=== PATIENT | female | born 1980 | race Caucasian/White ===

== ENCOUNTER 2017-11-27 09:30 | Inpatient (IN) | payer OTHER ==
[2017-11-27] MEDS ORDERED: ELECTROLYTE-148 SOLN 500 ML IV ONE (09:45)
[2017-11-27] MEDS ORDERED: CITRIC ACID/SODIUM CITRATE 30 ML UNIT-DOSE CUP PO ONE (10:52)
[2017-11-27] MEDS ORDERED: ELECTROLYTE-148 SOLN 1,000 ML IV SCH (11:00)
[2017-11-27 11:02] VITALS: BMI 34.3
--- NOTE | 2017-11-27 11:06 | HP ---
Past Medical History - Primary Care Physician PCP:: Adilia Mcdaniel - Admission Chief Complaint: 37 yrs ( AMA), , 39 weeks by sono, 38.2/7 by dates , previous c/section x3 , c/o onset of labor pain since 8.00AM , requests for voluntory sterlization History of Present Illness: pnc at [address] [place] [address] wt gain 21 lbs panel : 06/06/17 A pos, Rubella immune, Hbsg neg, Rpr nr, Hiv neg, Pap NILM, gc/ct neg 09/16/17 Quantiferon neg, Rpr nr,1 hr Gtt 112 11/09/17 h/h11.3, plt 133, , GBS neg, Gc/Ct neg , Hiv nr Pt was seen by MFM, Genetic counselling obtained , Serial sonogram done for growth reviewed .. 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 Weeks Gestation by Dates: 38.1 ...EDC by Dates: 12/10/17 ...EDC by Sono: 12/05/17 (07/08/17 sono 18.4 wks, urban 12/05/17 . 39 weeks by sono ) Additional OB History: G1 01/26/1999 primary c/section 40 weeks 10 lbs In [place]. G2 04/27/2000 repeat c/section 40 weeks , 10 lb in [place]. G3 2015 repeat c/section 40 weeks 10 lbs at [facility] Heme/Onc: Yes: Anemia (rx po iron & pnv) Infectious Disease: No: HIV, STD's, Tuberculosis Psych: Yes: Other (no h/o mental illness) - Past Surgical History Past Surgical History: Yes: (01/1999, 04/2000, 09/2015) Hx Myomectomy: No Hx Transabdominal Cerclage: No - Smoking History Have you smoked in the past 12 months: No - Alcohol/Substance Use Hx Alcohol Use: No History of Substance Use: reports: None Home Medications - Allergies Allergies/Adverse Reactions: Allergies Allergy/AdvReac Type Severity Reaction Status Date / Time No Known Allergies Allergy Verified 11/27/17 11:04 - Home Medications Home Medications: Ambulatory Orders Tablet 1 tab PO DAILY 11/27/17 Physical Exam - Maternity Vital Signs: Vital Signs Temperature 98.2 F 11/27/17 10:11 Pulse Rate 72 11/27/17 10:11 Respiratory Rate 18 11/27/17 10:11 Blood Pressure 118/59 11/27/17 10:11 O2 Sat by Pulse Oximetry (%) Constitutional: Yes: Well Nourished, Mild Distress Eyes: Yes: WNL HENT: Yes: WNL, Normocephalic Neck: Yes: WNL Cardiovascular: Yes: WNL, Regular Rate and Rhythm Lungs: Clear to auscultation Breast(s): Yes: WNL - Abdominal Exam/OB Fundal Height: 38 Number of Fetuses: Single Presentation: Vertex Contractions: Yes Regularity: Regular (4-5 min refular before hydration. after hydration 6-7 min apart) Intensity: Moderate Monitor Mode: External Heart Rate (range): 140 Heart Rate Location: [facility] Category: I Accelerations: Uniform Decelerations: None - Vaginal Exam/OB Vaginal Bleediing: No Dilatation (cm): 1 Effacement (%): 70 Amniotic Membrane Status: Intact Amniotic Fluid: Yes: Clear Meconium: Moderate Presentation: Vertex/Position Station: -3 - Physical Exam Musculoskeletal: Yes: WNL Extremities: Yes: WNL. No: Calf Tenderness Edema: Yes Edema: LLE: 1+, RLE: 1+ Integumentary: Yes: Incision (subumblical midline scar & pfannensteil scar) Deep Tendon Reflex Grade: Hyperactive,very brisk +4 Psychiatric: Yes: WNL, Alert, Oriented - Labs Lab Results: Laboratory Tests 11/27/17 11/27/17 11/27/17 11:10 11:10 11:10 WBC 8.5 Hgb 11.9 Hct 35.3 Plt Count 148 Neutrophils % 74.6 Lymphocytes % 19.2 Monocytes % 5.4 Eosinophils % 0.5 PT with INR 10.60 INR 0.94 PTT (Actin FS) 28.0 Sodium 142 Potassium 3.8 Chloride 111 H Carbon Dioxide 21 BUN 8 Creatinine 0.3 L Random Glucose 106 Calcium 8.2 L RPR Titer Blood Type Antibody Screen 11/27/17 11/27/17 11:10 11:10 WBC Hgb Hct Plt Count Neutrophils % Lymphocytes % Monocytes % Eosinophils % PT with INR INR PTT (Actin FS) Sodium Potassium Chloride Carbon Dioxide BUN Creatinine Random Glucose Calcium RPR Titer Nonreactive Blood Type A POSITIVE Antibody Screen Negative Hemorrhage Risk Assessment - Risk Factors Medium Risk Factors: Yes: Prior , uterine surgery,or multiple laparotomies Risk Score: 1 Risk Level: Medium Risk Problem List - Problems (1) with 39 completed weeks gestation Code(s): Z3A.39 - 39 WEEKS GESTATION OF (2) Previous section Code(s): Z98.891 - HISTORY OF UTERINE SCAR FROM PREVIOUS SURGERY (3) Multiparity Code(s): Z64.1 - PROBLEMS RELATED TO MULTIPARITY (4) Morbidly obese Code(s): E66.01 - MORBID (SEVERE) OBESITY DUE TO EXCESS CALORIES (5) AMA (advanced maternal age) multigravida 35+ Code(s): O09.529 - SUPERVISION OF ELDERLY MULTIGRAVIDA, UNSPECIFIED TRIMESTER Qualifiers: Trimester: third trimester Qualified Code(s): O09.523 - Supervision of elderly multigravida, third trimester (6) First stage of labor established Code(s): [id number] - Assessment/Plan 37 yrs , previous c/sx3, in early labor , requests for repeat c/s plan rRpeat LFT/C/S BTL
[2017-11-27 11:29] LABS: BASO % 0.3 % (0-2.0); EOS % 0.5 % (0-4.5); HEMATOCRIT 35.3 % (32.4-45.2); HEMOGLOBIN 11.9 GM/dL (10.7-15.3); LYMPH % 19.2 % (8-40); MCH 30.2 pg (25.7-33.7); MCHC 33.8 g/dl (32.0-36.0); MEAN CELL VOLUME 89.3 fl (80-96); MEAN PLT VOLUME 10.9 fl (7.5-11.1); MONO % 5.4 % (3.8-10.2); NEUT % 74.6 % (42.8-82.8); PLATELET COUNT 148 K/MM3 (134-434); RBC 3.95 M/mm3 (3.60-5.2); RDW 15.8 % (11.6-15.6); WHITE BLOOD COUNT 8.5 K/mm3 (4.0-10.0)
[2017-11-27] MEDS ORDERED: ONDANSETRON 4 MG/2 ML VIAL IVPUSH PRN (11:49)
[2017-11-27 11:57] LABS: ANION GAP 10 MMOL/L (8-16); BLOOD UREA NITROGEN 8 mg/dL (7-18); CALCIUM 8.2 mg/dL (8.5-10.1); CHLORIDE 111 mmol/L (98-107); CO2 21 mmol/L (21-32); CREATININE 0.3 mg/dL (0.55-1.02); GLUCOSE,RANDOM 106 mg/dL (74-106); POTASSIUM 3.8 mmol/L (3.5-5.1); SODIUM 142 mmol/L (136-145)
[2017-11-27 12:01] LABS: INR 0.94 (0.83-1.09); PROTHROMBIN TIME (PATIENT) 10.6 SEC (9.7-13.0)
[2017-11-27] MEDS ORDERED: morphine SULFATE/Preservative Free 0.5 MG/ML (1cc Syringe) ONE (15:33)
[2017-11-27] MEDS ORDERED: KETOROLAC TROMETHAMINE 30 MG/1 ML VIAL ONE (15:37)
[2017-11-27] MEDS ORDERED: ceFAZolin SODIUM 1 GM VIAL ONE (15:49)
[2017-11-27] MEDS ORDERED: SODIUM CHLORIDE 0.9% P/F 10 ML VIAL IJ ONE (15:49)
[2017-11-27] MEDS ORDERED: ePHEDrine SULFATE 50 MG/1 ML AMPULE ONE (15:50)
[2017-11-27] MEDS ORDERED: OXYTOCIN 10 UNITS/ML VIAL ONE (15:57)
[2017-11-27] MEDS ORDERED: SENNOSIDES/DOCUSATE COMBO (SENNA PLUS) TABLET (UD) PO PRN (16:57)
[2017-11-27] MEDS ORDERED: METHYLERGONOVINE MALEATE 0.2 MG/1 ML AMP IM PRN (16:57)
[2017-11-27] MEDS ORDERED: IBUPROFEN 800 MG/8 ML IJ IVPB PRN (16:57)
[2017-11-27] MEDS ORDERED: OXYTOCIN 20 UNITS in 0.9% NS 20 UNIT/1,000 ML INFUS.BAG IV SCH (17:00)
--- NOTE | 2017-11-27 17:13 | PN ---
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 2 gm iv Ancef prior to incision was given
--- NOTE | 2017-11-27 17:19 | OP ---
Operative Note - Note: Operative Date: 11/27/17 Pre-Operative Diagnosis: 39 weeks, previous c/sx3, early labor, multiparity, requests voluntory sterlization , obesity Operation: repeat lftc/s, btl , lysis of adhesions Findings: 4.02 PM , Vx Lot position, 9/9, Baby Boy,Wt 7'7' Lt Ovary not visualized . Rt ovary normal Both tubes ligated-cut by modified Brien technique Dr peters In Service Educator present in the room Surgeon: Adilia Mcdaniel Associate Professor Of Forestry: Oni William Anesthesiologist/MANAGER PROGRAMS: Jaylen Alvarez Anesthesia: Spinal Specimens Removed: placenta. cord blood Estimated Blood Loss (mls): 800 Drains, Volume Out (mls): 100 (diez output,light blood stained urine ) Fluid Volume Replaced (mls): 1,800 (iv ancef 2gm prior to incision ) Operative Report Dictated: Yes
[2017-11-27] MEDS ORDERED: PCA PUMP KEY 1 EACH EACH ONE (23:03)
[2017-11-28] MEDS ORDERED: DEXTROSE 5%-WATER - 50 ML IVPB ONE ×2 (00:17→07:50)
[2017-11-28] MEDS ORDERED: ceFAZolin SODIUM 1 GM VIAL ONE ×2 (00:17→07:50)
[2017-11-28] MEDS: CEFAZOLIN 1 GM in DEXTROSE 5%-WATER - 50 ML IVPB SCH ×2 (00:27→08:03)
[2017-11-28] MEDS ORDERED: oxyCODONE HCL 5 MG TABLET PO PRN (08:00)
[2017-11-28 08:23] LABS: BASO % 0.4 % (0-2.0); EOS % 0.3 % (0-4.5); HEMATOCRIT 31.5 % (32.4-45.2); HEMOGLOBIN 10.4 GM/dL (10.7-15.3); LYMPH % 18.5 % (8-40); MCH 29.7 pg (25.7-33.7); MCHC 33.1 g/dl (32.0-36.0); MEAN CELL VOLUME 89.9 fl (80-96); MEAN PLT VOLUME 10.2 fl (7.5-11.1); MONO % 4.5 % (3.8-10.2); NEUT % 76.3 % (42.8-82.8); PLATELET COUNT 125 K/MM3 (134-434); RBC 3.51 M/mm3 (3.60-5.2); RDW 16.5 % (11.6-15.6)
[2017-11-28] MEDS: PRENATAL VITAMINS W/ FOLIC ACID TABLET (FP) PO SCH (09:34)
--- NOTE | 2017-11-28 09:36 | PN ---
Post Progress Note - Subjective Subjective: no c/o pain not oob yet Post Day: 1 Type of Delivery: Repeat C/S (BTL) Vital Signs: Vital Signs Temperature 97.9 F 11/28/17 05:42 Pulse Rate 89 11/28/17 05:42 Respiratory Rate 20 11/28/17 08:00 Blood Pressure 106/56 11/28/17 05:42 O2 Sat by Pulse Oximetry (%) 100 11/27/17 18:00 Breast Exam: Yes: Soft, Other (BF ). No: Engorged Uterus: Yes: Fundus Firm, Fundus below umbilicus, Non-tender Incision: Yes: Dressing dry and intact. No: Redness, Oozing Abdomen/GI: Yes: Abdomen soft (BS active ), Abdominal Distention (obese abdomen ), Tolerating PO (clear liqiuds ). No: Tender, Passing flatus Lochia: Yes: Rubra Lochia, amount: Moderate Extremities: Yes: Calves non-tender, Edema Perineum: Yes: Intact Activity: Other (pt in bed with scd in situ ) - Labs Labs: CBC WBC 8.0 K/mm3 (4.0-10.0) 11/28/17 07:45 RBC 3.51 M/mm3 (3.60-5.2) L 11/28/17 07:45 Hgb 10.4 GM/dL (10.7-15.3) L 11/28/17 07:45 Hct 31.5 % (32.4-45.2) L 11/28/17 07:45 MCV 89.9 fl (80-96) 11/28/17 07:45 MCH 29.7 pg (25.7-33.7) 11/28/17 07:45 MCHC 33.1 g/dl (32.0-36.0) 11/28/17 07:45 RDW 16.5 % (11.6-15.6) H 11/28/17 07:45 Plt Count 125 K/MM3 (134-434) L 11/28/17 07:45 MPV 10.2 fl (7.5-11.1) 11/28/17 07:45 Absolute Neuts (auto) 6.1 K/mm3 (1.5-8.0) 11/28/17 07:45 Neutrophils % 76.3 % (42.8-82.8) 11/28/17 07:45 Lymphocytes % 18.5 % (8-40) 11/28/17 07:45 Monocytes % 4.5 % (3.8-10.2) 11/28/17 07:45 Eosinophils % 0.3 % (0-4.5) 11/28/17 07:45 Basophils % 0.4 % (0-2.0) 11/28/17 07:45 Nucleated RBC % 0 % (0-0) 11/28/17 07:45 Other Findings, Remarks: i/o 1550/650 urine rosenda color in the catheter tube & diez bag RS cta Problem List - Problems (1) with 39 completed weeks gestation Code(s): Z3A.39 - 39 WEEKS GESTATION OF (2) Previous section Code(s): Z98.891 - HISTORY OF UTERINE SCAR FROM PREVIOUS SURGERY (3) Multiparity Code(s): Z64.1 - PROBLEMS RELATED TO MULTIPARITY (4) Morbidly obese Code(s): E66.01 - MORBID (SEVERE) OBESITY DUE TO EXCESS CALORIES (5) AMA (advanced maternal age) multigravida 35+ Code(s): O09.529 - SUPERVISION OF ELDERLY MULTIGRAVIDA, UNSPECIFIED TRIMESTER Qualifiers: Trimester: third trimester Qualified Code(s): O09.523 - Supervision of elderly multigravida, third trimester (6) First stage of labor established Code(s): FDI3682 - (7) delivery delivered Code(s): O82 - ENCOUNTER FOR DELIVERY WITHOUT INDICATION (8) Encounter for visit Code(s): Z39.2 - ENCOUNTER FOR ROUTINE FOLLOW-UP Assessment/Plan stable . Plan :Remove catheter encourage ambulation, deep breathing, po fluids
[2017-11-28] MEDS: ENOXAPARIN NA (PORCINE) 40 MG/0.4 ML DISP.SYRIN SQ SCH (09:37)
[2017-11-28] MEDS ORDERED: DIPHTH,PERTUSS(ACELL),TET 0.5 ML DISP.SYRIN IM ONE (10:00)
[2017-11-28] MEDS: IBUPROFEN 600 MG TABLET (FP) PO PRN (15:04)
[2017-11-28] MEDS: oxyCODONE HCL 5 MG TABLET PO PRN (15:05)
[2017-11-28] MEDS: SIMETHICONE 80 MG TAB.CHEW (FP) PO PRN (15:07)
[2017-11-28] MEDS ORDERED: BISACODYL 10 MG SUPP.RECT RC PRN (16:58)
[2017-11-28] MEDS: ACETAMINOPHEN 325 MG TABLET (FP) PO PRN (17:05)
[2017-11-28] MEDS: FERROUS SO4 325 MG TABLET (FP) PO SCH (17:05)
--- NOTE | 2017-11-28 18:26 | PN ---
Progress Note (short form) - Note Progress Note: 6.00 pm nurse called me to come & see the patient immediately. pt c/o pain after 3.00 PM In LLQ. abdomen appeared distended to her she gave her rectal suppository ,she passed flatus she still c/o pain, no relief , she could not void . she states she passed urine once after diez was discontinued, she did not save urine. but it was small amount as per patient 5.40 PM Diez catheter was reinserted it s heamaturia ( blood with urine , red color) Diez out put charted in AM is 2950/1450 ml rosenda color nurse documented between 6.00AM to 10.30 AM 800 ml rosenda color urine pt was eating .Oob o/e pt c/o of pain in LLQ scale 8/10 abdomen is obese ,soft , LLQ tenderness bs active dressing changed, no, discharge from the incision wound becca intact . wound clean , dressing dry v/s T98.4, pulse 77/ml, BP 123/77. urine output measured now is 450 ml Imp : Post repeat (4Th ) c/section + BTL day #1 suspect bladder injury . Keep Diez catheter in situ Start IV Fluids N saline . keep strict i/o chart I contacted Urologist internal corrosion specialist Dr Mccann, he recommended Ct scan abdomen & pelvis with or without iv contrast tonight Cystogram tomorrow in AM PRN Problem List - Problems (1) with 39 completed weeks gestation Code(s): Z3A.39 - 39 WEEKS GESTATION OF (2) Previous section Code(s): Z98.891 - HISTORY OF UTERINE SCAR FROM PREVIOUS SURGERY (3) Multiparity Code(s): Z64.1 - PROBLEMS RELATED TO MULTIPARITY (4) Morbidly obese Code(s): E66.01 - MORBID (SEVERE) OBESITY DUE TO EXCESS CALORIES (5) AMA (advanced maternal age) multigravida 35+ Code(s): O09.529 - SUPERVISION OF ELDERLY MULTIGRAVIDA, UNSPECIFIED TRIMESTER Qualifiers: Trimester: third trimester Qualified Code(s): O09.523 - Supervision of elderly multigravida, third trimester (6) First stage of labor established Code(s): PAA2835 - (7) delivery delivered Code(s): O82 - ENCOUNTER FOR DELIVERY WITHOUT INDICATION (8) Encounter for visit Code(s): Z39.2 - ENCOUNTER FOR ROUTINE FOLLOW-UP (9) Hematuria Code(s): R31.9 - HEMATURIA, UNSPECIFIED Qualifiers: Hematuria type: gross Qualified Code(s): R31.0 - Gross hematuria
[2017-11-28] MEDS ORDERED: SODIUM CHLORIDE 1,000 ML IV SCH (18:30)
--- NOTE | 2017-11-28 18:39 | PN ---
Progress Note, Physician Chief Complaint: Pt. ambulating and voiding, pain controlled, no anesthesia complaints. - Current Medication List Current Medications: Active Medications Acetaminophen (Tylenol -) 650 mg PO Q4H PRN PRN Reason: PAIN LEVEL 1-5 Last Admin: 11/28/17 17:05 Dose: 650 mg Bisacodyl (Dulcolax Suppository -) 10 mg RC PRN PRN PRN Reason: CONSTIPATION Last Admin: 11/28/17 17:05 Dose: 10 mg Diphenhydramine HCl (Benadryl Injection -) 25 mg IVPUSH Q4H PRN PRN Reason: Pruritis Last Admin: 11/27/17 17:58 Dose: 25 mg Enoxaparin Sodium (Lovenox -) 40 mg SQ DAILY [facility] Last Admin: 11/28/17 09:37 Dose: 40 mg Ferrous Sulfate (Feosol -) 325 mg PO BIDWM [facility] Last Admin: 11/28/17 17:05 Dose: 325 mg Parenteral Electrolytes (Plasma-Lyte 148 -) 1,000 mls @ 125 mls/hr IV ASDIR [facility] Last Admin: 11/27/17 11:00 Dose: 125 mls/hr Oxytocin/Sodium Chloride (Normal Saline+20 Units Oxytocin -) 20 unit in 1,000 mls @ 125 mls/hr IV ASDIR [facility] Last Admin: 11/27/17 17:57 Dose: 125 mls/hr Sodium Chloride (Normal Saline -) 1,000 mls @ 150 mls/hr IV ASDIR [facility] Last Admin: 11/28/17 18:32 Dose: 150 mls/hr Ibuprofen (Motrin -) 600 mg PO Q4H PRN PRN Reason: PAIN LEVEL 1 - 3 Last Admin: 11/28/17 15:04 Dose: 600 mg Ibuprofen (Caldolor Injection -) 800 mg IVPB Q8H PRN PRN Reason: PAIN LEVEL 1-5 Last Admin: 11/28/17 09:47 Dose: 800 mg Methylergonovine Maleate (Methergine Injection -) 0.2 mg IM Q4H PRN PRN Reason: Excessive Bleeding (L&D) Ondansetron HCl (Zofran Injection) 4 mg IVPUSH Q4H PRN PRN Reason: NAUSEA Oxycodone HCl (Roxicodone -) 5 mg PO Q4H PRN PRN Reason: PAIN LEVEL 4 - 6 Last Admin: 11/28/17 15:05 Dose: 5 mg Oxycodone HCl (Roxicodone -) 10 mg PO Q4H PRN PRN Reason: PAIN LEVEL 7 - 10 Multivit/Folic Acid/Iron ( Vitamins (Sjr) -) 1 tab PO DAILY KATHLEEN Last Admin: 11/28/17 09:34 Dose: Not Given Senna/Docusate Sodium (Pericolace -) 2 tablet PO HS PRN PRN Reason: CONSTIPATION Simethicone (Mylicon -) 80 mg PO Q4H PRN PRN Reason: GAS Last Admin: 11/28/17 15:07 Dose: 80 mg - Objective Vital Signs: Vital Signs Temperature 98.4 F 11/28/17 14:00 Pulse Rate 92 H 11/28/17 14:00 Respiratory Rate 20 11/28/17 16:00 Blood Pressure 118/74 11/28/17 14:00 O2 Sat by Pulse Oximetry (%) 100 11/27/17 18:00 Constitutional: Yes: Well Nourished, No Distress, Calm Musculoskeletal: Yes: WNL Neurological: Yes: WNL, Alert, Oriented ...Motor Strength: WNL Labs: CBC, BMP 11/28/17 07:45 11/27/17 11:10 INR, PTT INR 0.94 (0.83-1.09) 11/27/17 11:10 Assessment/Plan POD#1 s/p under spinal with duramorph. Doing well. D/C from anesthesia care.
[2017-11-28] MEDS: SODIUM CHLORIDE 1,000 ML IV SCH (22:30)
--- NOTE | 2017-11-28 22:44 | PN ---
Progress Note (short form) - Note Progress Note: abd pelvis ctscan with or without contrast report from imaging motel front desk clerk no evidence of definite ureteric injury no evidence of contrast extravasation from urinary bladder , however catheter was not clamped urinary bladder is contracted recommend Ct cytogram to r/o subtle badder injury by infusing dilute contrast into bladder & clamping the catheter. Dr Mccann notified . He recommends CT Cystogram in AM pt has no c/o pain now , earlier it was 4-5/10 she had dinner, she is pumping the breast in chair.. urine in the tube is clear , in the bag appears orange in color. Intake from 7.00PM to 10.30PM ( 450 iv N Saline + 100 Ml contrast media + 480 po , Total = 1030 ML Urine Output 7.00Pm 400 ml + 9.00 PM 1100Ml + 10>30 PM 400 Ml Total =1900 mL . 10.PM Temp 98.1, BP 123/76, Puse 78/min Plan repeat cbc , cmp in AM Ctcysogram in AM ct iv hydration & diez catheter Problem List - Problems (1) with 39 completed weeks gestation Code(s): Z3A.39 - 39 WEEKS GESTATION OF (2) Previous section Code(s): Z98.891 - HISTORY OF UTERINE SCAR FROM PREVIOUS SURGERY (3) Multiparity Code(s): Z64.1 - PROBLEMS RELATED TO MULTIPARITY (4) Morbidly obese Code(s): E66.01 - MORBID (SEVERE) OBESITY DUE TO EXCESS CALORIES (5) AMA (advanced maternal age) multigravida 35+ Code(s): O09.529 - SUPERVISION OF ELDERLY MULTIGRAVIDA, UNSPECIFIED TRIMESTER Qualifiers: Trimester: third trimester Qualified Code(s): O09.523 - Supervision of elderly multigravida, third trimester (6) First stage of labor established Code(s): AKS6884 - (7) delivery delivered Code(s): O82 - ENCOUNTER FOR DELIVERY WITHOUT INDICATION (8) Encounter for visit Code(s): Z39.2 - ENCOUNTER FOR ROUTINE FOLLOW-UP (9) Hematuria Code(s): R31.9 - HEMATURIA, UNSPECIFIED Qualifiers: Hematuria type: gross Qualified Code(s): R31.0 - Gross hematuria
[2017-11-29] MEDS: IBUPROFEN 600 MG TABLET (FP) PO PRN ×3 (01:11→21:09)
[2017-11-29] MEDS: SIMETHICONE 80 MG TAB.CHEW (FP) PO PRN ×2 (01:11→21:09)
[2017-11-29] MEDS: oxyCODONE HCL 5 MG TABLET PO PRN ×2 (01:11→09:51)
[2017-11-29] MEDS: SODIUM CHLORIDE 1,000 ML IV SCH ×2 (01:50→09:57)
[2017-11-29] MEDS: FERROUS SO4 325 MG TABLET (FP) PO SCH ×2 (07:56→17:16)
[2017-11-29 08:33] LABS: BASO % 0.4 % (0-2.0); EOS % 0.6 % (0-4.5); HEMATOCRIT 32.4 % (32.4-45.2); HEMOGLOBIN 10.5 GM/dL (10.7-15.3); MCH 29.1 pg (25.7-33.7); MCHC 32.4 g/dl (32.0-36.0); MEAN CELL VOLUME 89.8 fl (80-96); MEAN PLT VOLUME 10.1 fl (7.5-11.1); MONO % 3.9 % (3.8-10.2); NEUT % 76.1 % (42.8-82.8); PLATELET COUNT 148 K/MM3 (134-434); RBC 3.61 M/mm3 (3.60-5.2); RDW 16.5 % (11.6-15.6); WHITE BLOOD COUNT 7.7 K/mm3 (4.0-10.0)
[2017-11-29 08:36] LABS: ANION GAP 5 MMOL/L (8-16); BILIRUBIN,TOTAL 0.3 mg/dL (0.2-1.0); BLOOD UREA NITROGEN 5 mg/dL (7-18); CALCIUM 7.4 mg/dL (8.5-10.1); CHLORIDE 111 mmol/L (98-107); CO2 25 mmol/L (21-32); CREATININE 0.4 mg/dL (0.55-1.02); GLUCOSE,RANDOM 84 mg/dL (74-106); POTASSIUM 4.3 mmol/L (3.5-5.1); SGOT/AST 28 U/L (15-37); SGPT/ALT 21 U/L (12-78); SODIUM 141 mmol/L (136-145); TOT PROT 5.4 g/dl (6.4-8.2)
[2017-11-29 08:37] LABS: ALK PHOS 101 U/L (45-117)
--- NOTE | 2017-11-29 09:29 | PN ---
Post Progress Note - Subjective Subjective: no c/o pain today. catheter urine is rosenda color pt oob tolerating food well Post Day: 2 Type of Delivery: Repeat C/S (BTL) Vital Signs: Vital Signs Temperature 98.1 F 11/28/17 21:41 Pulse Rate 78 11/28/17 21:41 Respiratory Rate 20 11/28/17 21:41 Blood Pressure 123/76 11/28/17 21:41 O2 Sat by Pulse Oximetry (%) 100 11/27/17 18:00 Breast Exam: Yes: Soft, Engorged, Other (pumping & dumping milk. ) Uterus: Yes: Fundus Firm, Fundus below umbilicus, Non-tender Incision: Yes: [place] intact. No: Redness, Oozing Abdomen/GI: Yes: Abdomen soft (bs active ), Abdominal Distention (obese abdomen ), Passing flatus (bm done ), Tolerating PO (diet ). No: Tender (no llq tenderness, no cva tenderness) Lochia: Yes: Rubra Lochia, amount: Small Extremities: Yes: Calves non-tender Perineum: Yes: Intact Activity: Ambulating - Labs Labs: CBC WBC 7.7 K/mm3 (4.0-10.0) 11/29/17 08:07 RBC 3.61 M/mm3 (3.60-5.2) 11/29/17 08:07 Hgb 10.5 GM/dL (10.7-15.3) L 11/29/17 08:07 Hct 32.4 % (32.4-45.2) 11/29/17 08:07 MCV 89.8 fl (80-96) 11/29/17 08:07 MCH 29.1 pg (25.7-33.7) 11/29/17 08:07 MCHC 32.4 g/dl (32.0-36.0) 11/29/17 08:07 RDW 16.5 % (11.6-15.6) H 11/29/17 08:07 Plt Count 148 K/MM3 (134-434) 11/29/17 08:07 MPV 10.1 fl (7.5-11.1) 11/29/17 08:07 Absolute Neuts (auto) 5.8 K/mm3 (1.5-8.0) 11/29/17 08:07 Neutrophils % 76.1 % (42.8-82.8) 11/29/17 08:07 Lymphocytes % 19.0 % (8-40) 11/29/17 08:07 Monocytes % 3.9 % (3.8-10.2) 11/29/17 08:07 Eosinophils % 0.6 % (0-4.5) D 11/29/17 08:07 Basophils % 0.4 % (0-2.0) 11/29/17 08:07 Nucleated RBC % 0 % (0-0) 11/29/17 08:07 Laboratory Tests 11/29/17 08:07 Sodium 141 Potassium 4.3 Chloride 111 H Carbon Dioxide 25 BUN 5 L Creatinine 0.4 L AST 28 ALT 21 Other Findings, Remarks: i/o 1720 ml/1800 ml . urine rosenda color Problem List - Problems (1) with 39 completed weeks gestation Code(s): Z3A.39 - 39 WEEKS GESTATION OF (2) Previous section Code(s): Z98.891 - HISTORY OF UTERINE SCAR FROM PREVIOUS SURGERY (3) Multiparity Code(s): Z64.1 - PROBLEMS RELATED TO MULTIPARITY (4) Morbidly obese Code(s): E66.01 - MORBID (SEVERE) OBESITY DUE TO EXCESS CALORIES (5) AMA (advanced maternal age) multigravida 35+ Code(s): O09.529 - SUPERVISION OF ELDERLY MULTIGRAVIDA, UNSPECIFIED TRIMESTER Qualifiers: Trimester: third trimester Qualified Code(s): O09.523 - Supervision of elderly multigravida, third trimester (6) First stage of labor established Code(s): [id number] - (7) delivery delivered Code(s): O82 - ENCOUNTER FOR DELIVERY WITHOUT INDICATION (8) Encounter for visit Code(s): Z39.2 - ENCOUNTER FOR ROUTINE FOLLOW-UP (9) Hematuria Code(s): R31.9 - HEMATURIA, UNSPECIFIED Qualifiers: Hematuria type: gross Qualified Code(s): R31.0 - Gross hematuria Assessment/Plan stable post RepeatC/Section Btl day #2 , s/p hematuria workup in progress to r/o bladder injury ureter injury is ruled out by Iv contrast Ct scan Abd & Pelvis to r/o bladder injury cytogram pending Urologist Dr Mccann contacted by Tel yesterday & consult pending cystogram report . repeat cbc & cmp stable plan ct diez & iv fluids
[2017-11-29] MEDS: PRENATAL VITAMINS W/ FOLIC ACID TABLET (FP) PO SCH (09:47)
[2017-11-29] MEDS: ENOXAPARIN NA (PORCINE) 40 MG/0.4 ML DISP.SYRIN SQ SCH (09:47)
[2017-11-29] MEDS: ACETAMINOPHEN 325 MG TABLET (FP) PO PRN ×3 (09:51→21:10)
--- NOTE | 2017-11-29 10:52 | OP ---
DATE OF OPERATION: 11/27/2017 PREOPERATIVE DIAGNOSES: A 39-week , previous sections x3, in early labor, multiparity, request for voluntary sterilization, obesity. OPERATION DONE: Repeat low-transverse section, bilateral tubal ligation, lysis of adhesions. SURGEON: Adilia Mcdaniel MD WASHERETTE MACHINE OPERATOR: STEFF Adrian ANESTHESIOLOGIST: Jaylen Alvarez MD REGENERATOR OPERATOR : Serafin Ortega MD ANESTHESIA: Spinal. FINDINGS: This is a 37-year-old 4, para 3-0-0-3 with previous C- sections x3, has a subumbilical midline scar and also Pfannenstiel scar, and she was having uterine contractions q.4-5 minutes; then after IV hydration, they were about 7 minutes apart. She was 1 cm dilated. After the delivery, the baby boy, 7 pounds 7 ounces, 9 and 9, and blood-stained urine at the end of the procedure. PROCEDURE: Abdomen was shaved, prepped. Benavides catheter was placed. She was taken to the operating room table and spinal anesthesia was given. The patient was placed in supine position. The abdomen was painted and draped in the usual manner. A Pfannenstiel incision was made through previous scar. Skin and subcutaneous tissue and anterior rectus sheath were incised transversely. Bleeding points were clamped and cauterized. Then, the rectus muscle was from the rectus sheath, parietal peritoneum was opened vertically and the lower flap parietal peritoneum was identified. The bladder was high on the lower uterine segment and, carefully, it was and then pushed down. The lower uterine segment was isolated. There were some omental adhesions of the parietal peritoneum that were lysed and the omentum was pushed down and packed with a lap pad. The lower uterine segment was incised transversely. Amniotic fluid was clear and the baby boy was delivered at 4:02 p.m. Apgars were 9 and 9. Baby's position was LOT. Baby's weight was 7 pounds 7 ounces. Cord was clamped, cut. Cord blood was collected. Placenta was removed completely with the membranes and Dr. Betancourt, the human resources analyst, was present in the room; she took care of the baby. After removing the placenta completely, the closure of the uterine incision was done. Uterus was closed in 2 layers; continuous locking with Biosyn 0 suture was the 1st layer. The 2nd layer was a continuous intermittent locking with Biosyn 0 suture , imbricating the 1st layer. The bladder was high. ; therefore, no bladder peritoneal closure was done. Omental adhesions were lysed from the parietal peritoneum. The left side ovary could not be visualized and then the left tube with the fimbriated end was ligated with a 2-0 plain catgut and a portion of the tube above the ligature was cut and sent for pathology examination. Hemostasis was verified. The right ovary was normal and the right tube portion was doubly ligated in the mid ampullary region with a 2-0 plain catgut and a portion of the tube above the ligature was cut and sent for pathology examination. Hemostasis was checked. Irrigation was done and sponge, instrument, and needle count were correct , Color of urine was verified it was rosenda color . The closure of the abdomen was done. Parietal peritoneum was closed with Vicryl 0 suture and then muscles were approximated together with a Vicryl 0 suture. Interrupted sutures were taken, then anterior rectus sheath underneath. Hemostasis was verified. The anterior rectus sheath was closed with a Vicryl 0 suture. Continuous sutures were taken. Hemostasis was verified and subcutaneous tissue and then the skin were freed from the underneath scar and the subcutaneous tissue irrigation was done and then subcutaneous tissue hemostasis verified. Subcutaneous tissue interrupted sutures were taken with a Biosyn 0 suture. The skin was approximated with a stapler. Pressure dressing was given and 2 g of IV Ancef she received prior to the incision. Total IV fluids were 1800 mL and the urine output was 100 mL. At the end of the procedure, urine in the tube was noted with a light blood stain and blood clots were removed from the vagina. She was transferred to the recovery room in stable condition. ESTIMATED BLOOD LOSS: 800 mL. GENEVIEVE PERRY M.D. [id number] MTDD
--- NOTE | 2017-11-29 13:11 | PN ---
Progress Note (short form) - Note Progress Note: cystogram reveals an extraperitoneal rupture. plan is to maintain the diez catheter for 10 days. repeat cystogram before removal
[2017-11-29] MEDS ORDERED: SODIUM CHLORIDE 1,000 ML IV SCH (16:15)
--- NOTE | 2017-11-29 17:17 | PN ---
Progress Note (short form) - Note Progress Note: cystogram & Pelvic Ct scan report obtained Bladder rupture with extravasation of urine in extraperitoneal perivesical space , possible sinus tract , extravastion of dye is noted Urologist Dr Odom responded to the cystogram report, & recommended 10 days of catheterization, repeat cystogram before removal of diez catheter. case was discussed with Dr Mccann & Dr Odom & recommend as above approach for extraperitoneal bladder injury. Dr Odom will see the patient tomorrow & will decide further plan of action . ct Iv fluids start prophylactic antibiotics po Keflex 500 mg bid , since she is Breast feeding . Pateint was explained earlier on telephone as well as in person with Lao Interpretor in details about bladder injury & plan of treatment , she is notified she will go home with Diez catheter , there may be possibility of spontaneous closure or diagnostic test of cystoscopy or further surgery . she does not have any complains of pain catheter is draining well rosenda color urine output since 7.00 AM until 5.00 PM 3000 ml . Problem List - Problems (1) with 39 completed weeks gestation Code(s): Z3A.39 - 39 WEEKS GESTATION OF (2) Previous section Code(s): Z98.891 - HISTORY OF UTERINE SCAR FROM PREVIOUS SURGERY (3) Multiparity Code(s): Z64.1 - PROBLEMS RELATED TO MULTIPARITY (4) Morbidly obese Code(s): E66.01 - MORBID (SEVERE) OBESITY DUE TO EXCESS CALORIES (5) AMA (advanced maternal age) multigravida 35+ Code(s): O09.529 - SUPERVISION OF ELDERLY MULTIGRAVIDA, UNSPECIFIED TRIMESTER Qualifiers: Trimester: third trimester Qualified Code(s): O09.523 - Supervision of elderly multigravida, third trimester (6) First stage of labor established Code(s): FDX4855 - (7) delivery delivered Code(s): O82 - ENCOUNTER FOR DELIVERY WITHOUT INDICATION (8) Encounter for visit Code(s): Z39.2 - ENCOUNTER FOR ROUTINE FOLLOW-UP (9) Hematuria Code(s): R31.9 - HEMATURIA, UNSPECIFIED Qualifiers: Hematuria type: gross Qualified Code(s): R31.0 - Gross hematuria (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
[2017-11-29] MEDS: CEPHALEXIN MONOHYDRATE 500 MG CAPSULE (UD) PO SCH (21:10)
[2017-11-30] MEDS: FERROUS SO4 325 MG TABLET (FP) PO SCH ×2 (08:27→17:04)
[2017-11-30] MEDS: ENOXAPARIN NA (PORCINE) 40 MG/0.4 ML DISP.SYRIN SQ SCH (10:13)
[2017-11-30] MEDS: CEPHALEXIN MONOHYDRATE 500 MG CAPSULE (UD) PO SCH ×2 (10:13→21:25)
[2017-11-30] MEDS: PRENATAL VITAMINS W/ FOLIC ACID TABLET (FP) PO SCH (10:13)
[2017-11-30 10:23] LABS: BASO % 0.6 % (0-2.0); EOS % 1.4 % (0-4.5); HEMATOCRIT 31.2 % (32.4-45.2); HEMOGLOBIN 10.1 GM/dL (10.7-15.3); LYMPH % 21.2 % (8-40); MCH 29.5 pg (25.7-33.7); MCHC 32.5 g/dl (32.0-36.0); MEAN CELL VOLUME 90.8 fl (80-96); MEAN PLT VOLUME 9.9 fl (7.5-11.1); MONO % 3.3 % (3.8-10.2); NEUT % 73.5 % (42.8-82.8); PLATELET COUNT 177 K/MM3 (134-434); RBC 3.43 M/mm3 (3.60-5.2); RDW 16.6 % (11.6-15.6); WHITE BLOOD COUNT 6.2 K/mm3 (4.0-10.0)
--- NOTE | 2017-11-30 12:13 | PN ---
Progress Note (short form) - Note Progress Note: contast extravasation is limited and extraperitoneal. management is bladder drainage with diez cath for ten days. continue keflex for the duration. no hydronephrosis seen on CT
--- NOTE | 2017-11-30 18:51 | PN ---
Post Progress Note - Subjective Subjective: no c/o pain , no fever diez catheter draining well Post Day: 3 Type of Delivery: Repeat C/S (BTL) Vital Signs: Vital Signs Temperature 98.5 F 11/30/17 08:39 Pulse Rate 89 11/30/17 08:39 Respiratory Rate 20 11/30/17 08:39 Blood Pressure 134/81 11/30/17 08:39 O2 Sat by Pulse Oximetry (%) 100 11/27/17 18:00 Breast Exam: Yes: Soft, Other (BF ). No: Engorged Uterus: Yes: Fundus Firm, Fundus below umbilicus, Non-tender Abdomen/GI: Yes: Abdomen soft (bs active ), Passing flatus (bm done ), Tolerating PO (diet ). No: Abdominal Distention, Tender Lochia: Yes: Rubra Lochia, amount: Moderate Extremities: Yes: Calves non-tender Perineum: Yes: Intact Activity: Ambulating - Labs Labs: CBC WBC 6.2 K/mm3 (4.0-10.0) 11/30/17 10:05 RBC 3.43 M/mm3 (3.60-5.2) L 11/30/17 10:05 Hgb 10.1 GM/dL (10.7-15.3) L 11/30/17 10:05 Hct 31.2 % (32.4-45.2) L 11/30/17 10:05 MCV 90.8 fl (80-96) 11/30/17 10:05 MCH 29.5 pg (25.7-33.7) 11/30/17 10:05 MCHC 32.5 g/dl (32.0-36.0) 11/30/17 10:05 RDW 16.6 % (11.6-15.6) H 11/30/17 10:05 Plt Count 177 K/MM3 (134-434) 11/30/17 10:05 MPV 9.9 fl (7.5-11.1) 11/30/17 10:05 Absolute Neuts (auto) 4.5 K/mm3 (1.5-8.0) 11/30/17 10:05 Neutrophils % 73.5 % (42.8-82.8) 11/30/17 10:05 Lymphocytes % 21.2 % (8-40) 11/30/17 10:05 Monocytes % 3.3 % (3.8-10.2) L 11/30/17 10:05 Eosinophils % 1.4 % (0-4.5) D 11/30/17 10:05 Basophils % 0.6 % (0-2.0) 11/30/17 10:05 Nucleated RBC % 0 % (0-0) 11/30/17 10:05 Other Findings, Remarks: urine output 5000 ml in Am 2400 ml 6.00 PM Problem List - Problems (1) with 39 completed weeks gestation Code(s): Z3A.39 - 39 WEEKS GESTATION OF (2) Previous section Code(s): Z98.891 - HISTORY OF UTERINE SCAR FROM PREVIOUS SURGERY (3) Multiparity Code(s): Z64.1 - PROBLEMS RELATED TO MULTIPARITY (4) Morbidly obese Code(s): E66.01 - MORBID (SEVERE) OBESITY DUE TO EXCESS CALORIES (5) AMA (advanced maternal age) multigravida 35+ Code(s): O09.529 - SUPERVISION OF ELDERLY MULTIGRAVIDA, UNSPECIFIED TRIMESTER Qualifiers: Trimester: third trimester Qualified Code(s): O09.523 - Supervision of elderly multigravida, third trimester (6) First stage of labor established Code(s): XQM1150 - (7) delivery delivered Code(s): O82 - ENCOUNTER FOR DELIVERY WITHOUT INDICATION (8) Encounter for visit Code(s): Z39.2 - ENCOUNTER FOR ROUTINE FOLLOW-UP (9) Hematuria Code(s): R31.9 - HEMATURIA, UNSPECIFIED Qualifiers: Hematuria type: gross Qualified Code(s): R31.0 - Gross hematuria (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
[2017-11-30] MEDS: SIMETHICONE 80 MG TAB.CHEW (FP) PO PRN (21:25)
[2017-11-30] MEDS: IBUPROFEN 600 MG TABLET (FP) PO PRN (21:25)
[2017-11-30] MEDS: ACETAMINOPHEN 325 MG TABLET (FP) PO PRN (21:25)
[2017-12-01] MEDS: FERROUS SO4 325 MG TABLET (FP) PO SCH ×2 (08:47→17:03)
--- NOTE | 2017-12-01 10:29 | DS ---
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 pt encouraged to drink po fluids urine clearing. urine cleared , rosenda color post po hydration), Other (post op day #1 11/28/ after chen removal chen catheter reinserted , blood stained. ct abdomen & pelvis with & without contrast obtained both ureter intact draining, . Cystogram ct pelvis with dye from catheter done on AM extraperitoneal extravasation noted . urology consult by Dr Dorantes , recommends Chen to stay for 10 days , po Keflex bid until repeat cystogram after 10 days before chen removal). No: CVA Tenderness - Left, CVA Tenderness - Right ....Post : Yes: Uterus firm, Uterus non-tender, Moderate lochia rubra Breast(s): Yes: WNL, Other (BF) Musculoskeletal: Yes: WNL Extremities: Yes: WNL. No: Calf Tenderness Edema: Yes Edema: LLE: 1+, RLE: 1+ Wound/Incision: Yes: Clean/Dry, Well Approximated, [place] Removed. No: Draining, Reddened Neurological: Yes: WNL, Alert, Oriented ...Motor Strength: WNL Psychiatric: Yes: WNL, Alert, Oriented Labs: CBC, BMP 11/30/17 10:05 11/29/17 08:07 Delivery - Delivery Section: Repeat, Low Flap Transverse (BTL, lysis of adhesions) Type of Anesthesia: Spinal Episiotomy/Laceration: None EBL (cc): 800 (chen out put 100 ml light blood stained ) Delivery, Single - Stages of Labor Date 1st Stage Initiatied: 11/27/17 Time 1st Stage Initiated: 08:00 Date of Delivery: 11/27/17 Time of Delivery: 16:02 Time Placenta Delivered: 16:03 Placenta: Yes: Manual Removal, Uterine Exploration - 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 2 gm iv Ancef prior to incision was given . post op hematuria & extraperitoneal bladder rupture diagnosed pt on continuous chen drainage & prophylactic antibiotics keflex pt is discharged wiith chen . Chen care is counselled follow up with urology office ( Dr Odom ) on 12/10/[address] vera on 12/07/17 Discharge Summary Reason For Visit: Current Active Problems AMA (advanced maternal age) multigravida 35+ (Acute) delivery delivered (Acute) Encounter for visit (Acute) Extraperitoneal rupture of bladder (Acute) First stage of labor established (Acute) Hematuria (Acute) Morbidly obese (Acute) Multiparity (Acute) with 39 completed weeks gestation (Acute) Previous section (Acute) Condition: Stable - Instructions Diet, Activity, Other Instructions: Post Instructions DIET: Continue good diet high in protein, calcium, and iron rich foods. Drink at least eight (8) glasses of water daily in addition to other fluids. ct Regular diet. Drink plenty Po Fluids MEDICATIONS: Continue vitamins and iron as previously directed. Motrin and Tylenol may be taken for minor discomfort. ACTIVITY: Mild to moderate exercise may be started in two (2) weeks. Take frequent rest periods. Resume normal activity after six (6) week check up. WOUND CARE OF OPERATIVE SITE: Continue use of perineal bottle until vaginal discharge stops. Keep area clean. Shower daily. Keep abdominal wound dry. Report any drainage or redness to physician. Tub baths, tampons and douches are not permitted for 6 weeks. CHEN CATHETER CARE as directed , make sure catheter is draining all the time . If catheter get blocked & you get pain go to ER immediately ct Breast feeding & or Bottle feeding BREAST CARE: (For those that are not breast feeding): If engorgement occurs: Wear tight fitting bra. Take Tylenol or Motrin for pain. Apply cold packs (ice in bags to each breast ) FAMILY PLANNING: There are many control alternatives to pursue and they should be discussed at your first office visit. You may resume sexual activity after your six (6) week check up. (Remember, breast feeding is not a contraceptive) NEXT PHYSICIAN APPOINTMENT: Be certain to call for a one (1) week appointment, unless otherwise directed. see Dr vera at [address] [place] [address] Yousif Odom office # [phone] call for appointment on 12/10/17Wednesday Call Clinic or got to Emergency Dept if you have any of the following: Heavy vaginal bleeding Painful urination Leg pain Unusual odor noted to vaginal bleeding High fever Red streaking noted on breast Referrals: Adilia Vera MD [Staff Physician] - Yousif Odom MD [Staff Physician] - (12/10/17) Disposition: VNS/HOME HEALTH CARE - Home Medications Comprehensive Discharge Medication List: Ambulatory Orders Ferrous Gluconate [Iron] 236 mg PO BID 11/27/17 Tablet 1 tab PO DAILY 11/27/17 Acetaminophen [Tylenol .Regular Strength -] 650 mg PO Q4H PRN #30 tablet Cephalexin Monohydrate [Keflex -] 500 mg PO BID #30 capsule 11/30/17 Ferrous Sulfate [Feosol] 325 mg PO BIDWM #60 tab 11/30/17 Ibuprofen [Motrin -] 600 mg PO Q4H PRN #30 tablet 11/30/17 Vitamins (Sjr) - 1 tab PO DAILY #30 tablet 11/30/17 Sennosides/Docusate Sodium [Pericolace -] 2 tablet PO HS PRN #60 tablet
[2017-12-01] MEDS: CEPHALEXIN MONOHYDRATE 500 MG CAPSULE (UD) PO SCH (10:46)
[2017-12-01] MEDS: PRENATAL VITAMINS W/ FOLIC ACID TABLET (FP) PO SCH (10:46)
[2017-12-01] MEDS: ACETAMINOPHEN 325 MG TABLET (FP) PO PRN (10:49)
[2017-12-01] MEDS: ENOXAPARIN NA (PORCINE) 40 MG/0.4 ML DISP.SYRIN SQ SCH (10:49)
[2017-12-01] MEDS: IBUPROFEN 600 MG TABLET (FP) PO PRN (10:50)
[2017-12-01 12:54] VITALS: BP 123/78; PULSE 77; TEMP 99.3
--- NOTE | 2017-12-03 13:28 | PATH ---
Surgical Pathology Report Patient Name: TASNEEM GONZALEZ [facility]. Rec. 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 Specimen(s) Received A: PLACENTA B: RIGHT PORTION OF FALLOPIAN TUBE C: LEFT PORTION OF FALLOPIAN TUBE Clinical History 38.6 weeks, Final Diagnosis A. PLACENTA, DELIVERY: FOCALLY DISRUPTED THIRD TRIMESTER PLACENTA WITH INTERVILLOUS FIBRIN DEPOSITION, THREE VESSEL UMBILICAL CORD AND UNREMARKABLE PLACENTAL MEMBRANES. B. RIGHT FALLOPIAN TUBE, PARTIAL SALPINGECTOMY: FULL LUMINAL PORTION OF FALLOPIAN TUBE. C. LEFT FALLOPIAN TUBE, SALPINGECTOMY: FULL LUMINAL PORTION OF FALLOPIAN TUBE, INCLUDING FIMBRIATED END. Electronically Signed Monico Srinivasan M.D. Gross Description A. The specimen is received fresh labeled placenta and is a 444 gram, 13.5 x 13.0 x 3.4 cm. placenta with attached membranes and umbilical cord. The attached membranes are stafford, translucent with focal opacities and insert marginally. The umbilical cord measures 25 cm. in length and averages 1.2 cm. in diameter. The cord inserts eccentrically, 2.5 cm. to the nearest margin. No true knots or strictures are identified. Cut surface of the umbilical cord reveals 3 vessels. The surface is marie-blue with minimal fibrin deposition and appropriate caliber vessels. The maternal surface is red-brown with focal defects. Sectioning reveals red-brown, spongy parenchyma. No lesions are identified. Supervisor Plate Forming sections are submitted in three cassettes as follows: 1- membrane rolls and umbilical cord; 2-3- full thickness sections of placenta. B. Received in formalin labeled "right portion of fallopian tube," is a 2 cm in length portion of fallopian tube. No fimbria are present. The outer surface is stafford-sheffield and smooth. Sectioning reveals an unremarkable lumen. Supervisor Plate Forming sections are submitted in one cassette. C. Received in formalin labeled "left portion of fallopian tube," is a 2.5 cm in length fimbriated fallopian tube. The outer surface is stafford-sheffield and smooth. Sectioning reveals an unremarkable lumen. Supervisor Plate Forming sections are submitted in 2 cassettes as follows: 1-fimbria; 2-cross sections of fallopian tube. 12/02/2017 [facility]12/02/2017
== END 2017-12-01 18:36 | disposition home health service (06) | DRG 540 ==
LOC: JDEL 09:30 → JLDR 10:40 → J3W 19:20
PROVIDERS: ADMIT Obstetrics & Gynecology; ATTEND Obstetrics & Gynecology
PROC: 10D00Z1 Extraction of Products of Conception, Low, Open Approach (ICD-10-PCS; principal; 2017-11-30)
PROC: 0UB70ZZ Excision of Bilateral Fallopian Tubes, Open Approach (ICD-10-PCS; 2017-11-30)
PROC: 0DNW0ZZ Release Peritoneum, Open Approach (ICD-10-PCS; 2017-11-30)
DX: O34.219 Maternal care for unspecified type scar from previous cesarean delivery (principal); Z3A.38 38 weeks gestation of pregnancy; Z37.0 Single live birth; Z30.2 Encounter for sterilization; O99.214 Obesity complicating childbirth; E66.8 Other obesity; Z68.34 Body mass index [BMI] 34.0-34.9, adult; O90.89 Other complications of the puerperium, not elsewhere classified; N32.89 Other specified disorders of bladder; R31.0 Gross hematuria; O09.523 Supervision of elderly multigravida, third trimester; K66.0 Peritoneal adhesions (postprocedural) (postinfection)
CPT/HCPCS: 36415; 51600; 72193-TC; 74178-TC; 74430-TC-FY; 80048; 80053; 85025; 85610; 85730; 86593; 86850; 86900; 86901; 88302-TC; 88307-TC; 94010; J7030

== ENCOUNTER 2018-02-22 10:05 | Emergency (ER) | payer SELFPAY ==
[2018-02-22 10:39] VITALS: BMI 28.7
[2018-02-22] MEDS ORDERED: ACETAMINOPHEN 325 MG TABLET (FP) PO ONE (11:44)
[2018-02-22] MEDS ORDERED: ACETAMINOPHEN 325 MG TABLET (FP) ONE (11:47)
--- NOTE | 2018-02-22 11:50 | PDOC ---
History of Present Illness <BrittaniMary Carmen Brittanywally - Last Filed: 02/22/18 12:43> - History of Present Illness Initial Comments: 02/22/18 11:49 Patient is a 37 year old female with no significant past medical history, currently , presented with left breast pain for 2 days. Patient reported left breast pain and fullness. She reports pumping her breast 7 times a day. Patient also reports minimal amount of yellowish discharge on her clothes. She took motrin last night which provided some relief. Denies fevers, chills, headache, dizziness, chest pain, palpitations, SOB, abdominal pain, urinary symptoms. <Laura Lopez - Last Filed: 02/22/18 13:29> - General Chief Complaint: Pain Stated Complaint: PAIN,LT BREAST Time Seen by Provider: 02/22/18 10:39 Past History <BrittaniMary Carmenkash [place] - Last Filed: 02/22/18 12:43> - Past Medical History Asthma: No Cancer: No Cardiac Disorders: No COPD: No Diabetes: No HTN: No Seizures: No Thyroid Disease: No - Suicide/Smoking/Psychosocial Hx Smoking History: Never smoked Have you smoked in the past 12 months: No Hx Alcohol Use: No Drug/Substance Use Hx: No Hx Substance Use Treatment: No <Laura Lopez - Last Filed: 02/22/18 13:29> - Past Medical History Allergies/Adverse Reactions: Allergies Allergy/AdvReac Type Severity Reaction Status Date / Time No Known Allergies Allergy Verified 02/22/18 10:35 Home Medications: Ambulatory Orders Amox-Tr/K Cl [Augmentin - 875Mg Tablet] 1 tab PO BID #13 tablet MDD 2 tablets Review of Systems - Review of Systems Constitutional: No: Chills, Fever, Weakness HEENTM: No: Blurred Vision, Hearing Loss, Throat Pain Respiratory: No: Cough, Shortness of Breath Cardiac (ROS): No: Chest Pain, Palpitations ABD/GI: No: Abdominal Distended, Constipated, Diarrhea : No: Burning, Dysuria, Discharge Neurological: No: Headache, Numbness, Weakness All Other Systems: Reviewed and Negative (+left breast pain) <Laura Lopez - Last Filed: 02/22/18 13:29> *Physical Exam - Vital Signs Last Vital Signs Temp Pulse Resp BP Pulse Ox 98 F 73 18 101/46 L 99 02/22/18 10:36 02/22/18 10:36 02/22/18 10:36 02/22/18 10:36 02/22/18 10:36 <Mary Carmen Peter - Last Filed: 02/22/18 12:43> - Vital Signs Last Vital Signs Temp Pulse Resp BP Pulse Ox 98 F 73 18 101/46 L 99 02/22/18 10:36 02/22/18 10:36 02/22/18 10:36 02/22/18 10:36 02/22/18 10:36 - Physical Exam General Appearance: Yes: Nourished, Appropriately Dressed HEENT: positive: EOMI, JOSE Neck: positive: Trachea midline, Supple Respiratory/Chest: positive: Lungs Clear, Normal Breath Sounds, Other (Breast: + erythema on left lateral breast, +tenderness and fullness L>R) Cardiovascular: positive: Regular Rhythm, Regular Rate Gastrointestinal/Abdominal: positive: Normal Bowel Sounds Extremity: positive: Normal Capillary Refill, Normal Range of Motion. negative : Pedal Edema <Laura Lopez - Last Filed: 02/22/18 13:29> ED Treatment Course - Medications Given in the ED: ED Medications Discontinued Medications Generic Name Dose Route Start Last Admin Trade Name Freq PRN Reason Stop Dose Admin Acetaminophen 650 mg 02/22/18 11:44 02/22/18 11:49 Tylenol - PO 02/22/18 11:45 650 mg ONCE ONE Administration <Mary Carmen Peter - Last Filed: 02/22/18 12:43> Medical Decision Making - Medical Decision Making 02/22/18 12:01 Patient is a 37 year old female with no significant past medical history, currently , presented with left breast pain for 2 days. Patient reported left breast pain and fullness. She reports pumping her breast 7 times a day. She took motrin last night which provided some relief. General: awake, alert, oriented, NAD Neck: supple neck, trachea midline Lungs: clear to auscultation bilaterally Cardio: regular rate and rhythm, S1/s2 normal Breast exam: +erythema, left lateral breast, +tenderness and fullness L > R Abdomen: soft, nontender, nondistended, NABS Ext: +2 pulses, no edema A: Left breast tenderness likely 2/2 lactational mastitis P: Tylenol 650mg for pain <Laura Lopez - Last Filed: 02/22/18 13:29> *DC/Admit/Observation/Transfer <Mary Carmen Peter - Last Filed: 02/22/18 12:43> - Discharge Dispostion Decision to Admit order: No <Laura Lopez - Last Filed: 02/22/18 13:29> Diagnosis at time of Disposition: Mastitis, Breast engorgement - Discharge Dispostion Disposition: HOME Condition at time of disposition: Stable - Prescriptions Prescriptions: Amox-Tr/K Cl [Augmentin - 875Mg Tablet] 1 tab PO BID #13 tablet MDD 2 tablets - Patient Instructions Printed Discharge Instructions: DI for Mastitis Additional Instructions: You were seen because you had pain on your left breast. You probably have lactational mastitis, an infection of the breast that occurs during . your breast is also engorged from the milk production. take antibiotics (Augmentin twice a day) for 1 week Continue to breastfeed on your left breast. Apply warm compress for 20 minutes before pumping your breast. You may apply warm compresses or towel after feedings to help with the pain. Drink plenty of water and rest as needed. You may take Tylenol every 6 hours as needed for the pain. Follow-up with your primary care physician this week. Call 911 or go to the ED if with any worsening breast pain, abnormal discharge, fevers, chills or any new concerns noted. Print Language: KYRGYZ
[2018-02-22] MEDS ORDERED: AMOX TR/POT CLAV 875MG/125MG TABLETS (FP) PO ONE (12:43)
--- NOTE | 2018-02-22 12:46 | PDOC ---
Attending Attestation - Resident Resident Name: Laura Lopez - ED Attending Attestation I have performed the following: I have examined & evaluated the patient, The case was reviewed & discussed with the resident, I agree w/resident's findings & plan - HPI HPI: 02/22/18 12:47 Zac is a 37-year-old female, with no past medical history, who presents to the ED with 2 days of erythema to the left breast with occasional yellow drainage. The patient is 2 months and is and pumping. Today, the patient noted yellow discharge coming from her left breast and reports associated pain and swelling. She is 7x a day (4x during the day, 3x at night). The patient denies any fever, chills, nausea, vomiting, diarrhea, or abdominal pain. Denies any chest pain or shortness of breath. - Physicial Exam PE: 02/22/18 12:48 NAD, well appearing, PERRL, EOMI, MMM, nl conjunctiva; neck supple. +left breast engorged, erythema and warm to palpation. no active nipple drainage. tender at 12 o'clock. no palp abscess or firmness. lungs clear, RRR, abdomen soft nontender. No peripheral edema. normal color for ethnicity, WWP. - Medical Decision Making 02/22/18 12:48 Vitals wnl, reassuring. No fever or systemic sx. Breast exam c/w left breast engorgement vs mastitis. No palp abscess or fluctuance, but tender breast. No active drainage Given tylenol for analgesia Augmentin BID x 1 week Warm compresses, supportive care, tylenol only for analgesia f/u PCP and continue with breast feeding Pt to be discharged in stable condition. Patient and family made aware of impression and plan, return precautions discussed (including but not limited to worsening pain or symptoms), fevers, or signs of infection, chest pain, respiratory distress, inability to tolerate oral intake, dehydration, syncope, or neurologic changes). Follow up with PMD and/or specialist as recommended, follow up information provided, take medications as instructed for duration of time. continue with supportive care, avoid triggers and precipitants. All questions answered to patient's satisfaction and expressed understanding and comfort with this.
[2018-02-22] MEDS ORDERED: AMOX TR/POT CLAV 875MG/125MG TABLETS (FP) ONE (13:02)
[2018-02-22 13:43] VITALS: BP 104/67; PULSE 78; TEMP 97.8
== END 2018-02-22 13:00 | disposition home or self-care (01) ==
LOC: JER 10:05
DX: Z39.1 Encounter for care and examination of lactating mother (principal); N64.4 Mastodynia
CPT/HCPCS: 99282-25

== ENCOUNTER 2018-03-10 10:35 | Emergency (ER) | payer SELFPAY ==
[2018-03-10 10:48] VITALS: BP 105/43; PULSE 70; TEMP 97.8; BMI 28.5
--- NOTE | 2018-03-10 11:52 | PDOC ---
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 Pt states she feeds baby 4 times a day. Pt denies fever no chills no abd pain. Timing/Duration: reports: constant Past History - Past Medical History Allergies/Adverse Reactions: Allergies Allergy/AdvReac Type Severity Reaction Status Date / Time No Known Allergies Allergy Verified 03/10/18 10:39 Home Medications: Ambulatory Orders NK [No Known Home Medication] 03/10/18 Asthma: No Cancer: No Cardiac Disorders: No COPD: No Diabetes: No HTN: No Seizures: No Thyroid Disease: No - Suicide/Smoking/Psychosocial Hx Smoking History: Never smoked Have you smoked in the past 12 months: No Hx Alcohol Use: No Drug/Substance Use Hx: No Hx Substance Use Treatment: No *Physical Exam - Vital Signs Last Vital Signs Temp Pulse Resp BP Pulse Ox 97.8 F 70 16 105/43 L 100 03/10/18 10:40 03/10/18 10:40 03/10/18 10:40 03/10/18 10:40 03/10/18 10:40 - Physical Exam General Appearance: Yes: Nourished, Appropriately Dressed HEENT: positive: EOMI, JOSE Neck: positive: Supple. negative: Tender Respiratory/Chest: positive: Lungs Clear, Normal Breath Sounds, Other ( bilateral breasts with engorgement no redness no warmth, ). negative: Chest Tender Cardiovascular: positive: Regular Rhythm, Regular Rate Musculoskeletal: positive: Normal Inspection Extremity: positive: Normal Capillary Refill, Normal Inspection, Normal Range of Motion Integumentary: positive: Normal Color, Dry, Warm Neurologic: positive: Fully Oriented, Alert, Normal Mood/Affect, Normal Response , Motor Strength 5/5 Moderate Sedation - Procedure Monitoring Vital Signs: Procedure Monitoring Vital Signs Temperature 97.8 F 03/10/18 10:40 Pulse Rate 70 03/10/18 10:40 Respiratory Rate 16 03/10/18 10:40 Blood Pressure 105/43 L 03/10/18 10:40 O2 Sat by Pulse Oximetry (%) 100 03/10/18 10:40 Medical Decision Making - Medical Decision Making 03/10/18 11:44 cc: breast pain , pt is currently lactating states she has pain for 2 months, states is only feeding baby 4 times daily, does not feel complete emptying with each feeding no redness no drainage pt has multiple areas of engorgement on exam *DC/Admit/Observation/Transfer Diagnosis at time of Disposition: Breast engorgement - Discharge Dispostion Disposition: HOME Condition at time of disposition: Fair - Referrals - Patient Instructions Printed Discharge Instructions: Successfully, Your Baby: How Long Should You Do It? Additional Instructions: warm compresses to the breasts, warm showers feed baby on demand and empty each breast completely before switching to the other side take tylenol as needed for pain Compresas calientes en los senos, duchas calientes. alimente al beb a pedido y vace cada seno completamente antes de cambiar al otro lado adelfo tylenol segn sea necesario para el dolor Print Language: MACANESE - Post Discharge Activity
== END 2018-03-10 12:31 | disposition home or self-care (01) ==
LOC: JERFT 10:35 → JER 10:35 → JERFT 12:31
DX: N64.59 Other signs and symptoms in breast (principal)
CPT/HCPCS: 99281-25

== ENCOUNTER 2018-03-18 10:30 | Emergency (ER) | payer SELFPAY ==
[2018-03-18 11:02] VITALS: BP 102/40; PULSE 67; TEMP 98.5; BMI 29.2
--- NOTE | 2018-03-18 12:09 | PDOC ---
History of Present Illness - General Chief Complaint: Cold Symptoms Stated Complaint: COUGH,RUNNING NOSE Time Seen by Provider: 03/18/18 11:39 History Source: Patient Exam Limitations: No Limitations - History of Present Illness Initial Comments: 03/18/18 12:00 37 yr female with cough runny nose for 5 days . no vomiting no pmhx no allergies. pt's children with same symptoms. no vomiting or diarrhea. Severity: reports: mild Past History - Past Medical History Allergies/Adverse Reactions: Allergies Allergy/AdvReac Type Severity Reaction Status Date / Time No Known Allergies Allergy Verified 03/18/18 11:00 Home Medications: Ambulatory Orders NK [No Known Home Medication] 03/10/18 Asthma: No Cancer: No Cardiac Disorders: No COPD: No Diabetes: No HTN: No Seizures: No Thyroid Disease: No - Immunization History Immunization Up to Date: Yes - Suicide/Smoking/Psychosocial Hx Smoking History: Never smoked Have you smoked in the past 12 months: No Hx Alcohol Use: No Drug/Substance Use Hx: No Hx Substance Use Treatment: No Respiratory Specific PMHX - Complaint Specific PMHX Angina: No Bronchitis: No Pneumonia: No Pulmonary Embolus: No TB (Tuberculosis): No Review of Systems - Review of Systems Able to Perform ROS?: Yes Is the patient limited Lithuanian proficient: No Constitutional: No: Symptoms Reported Respiratory: Yes: Cough *Physical Exam - Vital Signs Last Vital Signs Temp Pulse Resp BP Pulse Ox 98.5 F 67 18 102/40 L 99 03/18/18 11:01 03/18/18 11:01 03/18/18 11:01 03/18/18 11:01 03/18/18 11:01 - Physical Exam General Appearance: Yes: Nourished, Appropriately Dressed HEENT: positive: EOMI, JOSE Neck: positive: Supple. negative: Tender Respiratory/Chest: positive: Lungs Clear, Normal Breath Sounds Cardiovascular: positive: Regular Rhythm, Regular Rate Gastrointestinal/Abdominal: positive: Normal Bowel Sounds, Soft Musculoskeletal: positive: Normal Inspection Extremity: positive: Normal Capillary Refill, Normal Inspection, Normal Range of Motion Integumentary: positive: Normal Color, Dry, Warm Neurologic: positive: Fully Oriented, Alert, Normal Mood/Affect, Normal Response , Motor Strength 5/5 Moderate Sedation - Procedure Monitoring Vital Signs: Procedure Monitoring Vital Signs Temperature 98.5 F 03/18/18 11:01 Pulse Rate 67 12/14/18 11:01 Respiratory Rate 18 03/18/18 11:01 Blood Pressure 102/40 L 03/18/18 11:01 O2 Sat by Pulse Oximetry (%) 99 03/18/18 11:01 *DC/Admit/Observation/Transfer Diagnosis at time of Disposition: Upper respiratory infection with cough and congestion - Discharge Dispostion Disposition: HOME Condition at time of disposition: Good - Referrals - Patient Instructions Printed Discharge Instructions: DI for Common Cold, How to Avoid a Cold or Flu Additional Instructions: shagufta muchos lquidos abiola utilizar sobre el mostrador Vicks vapor frotar la espalda y la garganta del pecho sigue con tu pediatra el lunes Regrese a la michelle de emergencias si los sntomas empeoran. Print Language: PERSIAN - Post Discharge Activity
== END 2018-03-18 12:50 | disposition home or self-care (01) ==
LOC: JERFT 10:30
DX: J06.9 Acute upper respiratory infection, unspecified (principal); R05 Cough; R09.89 Other specified symptoms and signs involving the circulatory and respiratory systems
CPT/HCPCS: 99281-25

== ENCOUNTER 2019-12-28 10:57 | Emergency (ER) | payer OTHER ==
[2019-12-28 11:26] VITALS: BP 119/51; PULSE 73; TEMP 98.2; BMI 28.4
--- OUTSIDE RECORDS SUMMARY | 2019-12-28 11:52 | XMS ---
:1980 Author Organization [facility] Care Team Providers Name Role Phone Yanick Mayorga Unavailable [phone] Zuleyma Burroughs Unavailable [phone] Murphy, Yohana Unavailable [phone] Murphy, Yohana Unavailable [phone] Murphy, Yohana Unavailable [phone] Nay Bullock MD Unavailable Unavailable Coloka-Kump, Rodika DO Unavailable Unavailable Coloka-Kump, Rodika DO Unavailable Unavailable Coloka-Kump, Rodika DO Unavailable Unavailable Coloka-Kump, Rodika DO Unavailable Unavailable Coloka-Kump, Rodika DO Unavailable Unavailable Coloka-Kump, Rodika DO Unavailable Unavailable Coloka-Kump, Rodika DO Unavailable Unavailable Coloka-Kump, Rodika DO Unavailable Unavailable Coloka-Kump, Rodika DO Unavailable Unavailable Coloka-Kump, Rodika DO Unavailable Unavailable Coloka-Kump, Rodika DO Unavailable Unavailable Coloka-Kump, Rodika DO Unavailable Unavailable Coloka-Kump, Rodika DO Unavailable Unavailable Coloka-Kump, Rodika DO Unavailable Unavailable Coloka-Kump, Rodika DO Unavailable Unavailable Coloka-Kump, Rodika DO Unavailable Unavailable Coloka-Kump, Rodika DO Unavailable Unavailable Colin Dawkins MD Unavailable Colin Dawkins MD Unavailable Colin Dawkins MD Unavailable Colin Dawkins MD Unavailable Colin Dawkins MD Unavailable Colin Dawkins MD Unavailable Colin Dawkins MD Unavailable Ringstad, Celina Unavailable Unavailable Ringstad, Celina Unavailable Unavailable Ringstad, Celina Unavailable Unavailable Ringstad, Celina Unavailable Unavailable Ringstad, Celina Unavailable Unavailable Ringstad, Celina Unavailable Unavailable Ringstad, Celina Unavailable Unavailable Ringstad, Celina Unavailable Unavailable Ringstad, Celina Unavailable Unavailable Ringstad, Celina Unavailable Unavailable Ringstad, Celina Unavailable Unavailable Harmony Cloud MD Unavailable Unavailable Harmony Cloud MD Unavailable Unavailable Zachary, Aqib Unavailable Unavailable Zachary, Aqib Unavailable Unavailable Zachary, Aqib Unavailable Unavailable De La Fuente, Rebecca Unavailable Unavailable De La Fuente, Rebecca Unavailable Unavailable De La Fuente, Rebecca Unavailable Unavailable De La Fuente, Rebecca Unavailable Unavailable De La Fuente, Rebecca Unavailable Unavailable De La Fuente, Rebecca Unavailable Unavailable De La Fuente, Rebecca Unavailable Unavailable De La Fuente, Rebecca Unavailable Unavailable De La Fuente, Rebecca Unavailable Unavailable De La Fuente, Rebecca Unavailable Unavailable Yesy Madden Unavailable [email or web address] Yesy Madden Unavailable [email or web address] Yesy Madden Unavailable [email or web address] Yesy Madden Unavailable [email or web address] Aszalos, Caro Taya Unavailable Unavailable Aszalos, Taya Unavailable Unavailable Aszalos, Taya Unavailable Unavailable Aszalos, Taya Unavailable Unavailable Aszalos, Taya Unavailable Unavailable Aszalos, Taya Unavailable Unavailable Aszalos, Taya Unavailable Unavailable Aszalos, Taya Unavailable Unavailable Aszalos, Taya Unavailable Unavailable Lakhi Unavailable [phone] Lakhi Unavailable [phone] Lakhi Unavailable [phone] [place] Unavailable [phone] Cornelius Unavailable [phone] Coloka-Kump, DO Unavailable Unavailable Coloka-Kump, DO Unavailable Unavailable Coloka-Kump, DO Unavailable Unavailable Coloka-Kump, DO Unavailable Unavailable Coloka-Kump, DO Unavailable Unavailable Coloka-Kump, DO Unavailable Unavailable Coloka-Kump, DO Unavailable Unavailable Coloka-Kump, DO Unavailable Unavailable Coloka-Kump, DO Unavailable Unavailable Coloka-Kump, DO Unavailable Unavailable Coloka-Kump, DO Unavailable Unavailable Coloka-Kump, DO Unavailable Unavailable Coloka-Kump, DO Unavailable Unavailable Coloka-Kump, DO Unavailable Unavailable Coloka-Kump, DO Unavailable Unavailable Coloka-Kump, DO Unavailable Unavailable Coloka-Kump, DO Unavailable Unavailable [place] Unavailable [phone] [place] Unavailable [phone] Shahana Unavailable [phone] Xavier-Mars Unavailable Unavailable Xavier-Mars Unavailable Unavailable Topete Unavailable [phone] Topete Unavailable [phone] Re-disclosure Warning The records that you are about to access may contain information from federally- assisted alcohol or drug abuse programs. If such information is present, then the following federally mandated warning applies: This information has been disclosed to you from records protected by federal confidentiality rules (42 CFR part 2). The federal rules prohibit you from making any further disclosure of this information unless further disclosure is expressly permitted by the written consent of the person to whom it pertains or as otherwise permitted by 42 CFR part 2. A general authorization for the release of medical or other information is NOT sufficient for this purpose. The Federal rules restrict any use of the information to criminally investigate or prosecute any alcohol or drug abuse patient.The records that you are about to access may contain highly sensitive health information, the redisclosure of which is protected by Article 27-F of the [facility] Public Health law. If you continue you may haveaccess to information: Regarding HIV / AIDS; Provided by facilities licensed or operated by the [facility] Office of Mental Health; or Provided by the [facility] Office for People With Developmental Disabilities. If such information is present, then the following [facility] mandated warning applies: This information has been disclosed to you from confidential records which are protected by state law. State law prohibits you from making any further disclosure of this information without the specific written consent of the person to whom it pertains, or as otherwise permitted by law. Any unauthorized further disclosure in violation of state law may result in a fine or fpc sentence or both. A general authorization for the release of medical or other information is NOT sufficient authorization for further disclosure. Allergies and Adverse Reactions Type Description Substance Reaction Status Data Source(s ) Propensity to Propensity to Propensity to NEXTG EN ([facility] adverse reactions adverse reactions adverse reactions [facility] (disorder) (disorder) (disorder) Center) Family History Family Member Family Member Family Member Date of Description Data Source(s) Name Gender Status Status Unknown Male Diagnosis 09/16/2011 NEXTGEN ([facility] 12:00:00 AM [facility] EDT Center) Encounters Encounter Providers Location Date Indications Data Source(s ) Attender: [facility] 10/20/2019 [facility] 09:06:00 Diego XavierJerad EDT - Medical 10/20/2019 [place]) 09:06:00 PM EDT Attender: [facility] 10/20/2019 [facility] ([facility] 09:03:00 Diego XavierMars EDT - [facility] 10/20/2019 [place]) 09:03:00 PM EDT Outpatient Attender: Caro Buenrostro 10/18/2019 [facility] Sarabjit Chávez 11:05:00 Medical C enter : Caro AM EDT Asluz marinalosReferrer : Caro Galdamez OutpatientOFFICE/OUT Attender: [facility] 10/18/2019 Virgen LEDEZMA ([facility] PATIENT VISIT, [facility] 11:05:00 Robert XavierJerad EDT - Medical 10/18/2019 [place]) 11:05:00 AM EDT Outpatient 10/18/2019 [facility] 10:46:00 [facility] AM EDT Outpatient 10/18/2019 [facility] 12:00:00 [facility] AM EDT Outpatient Attender: Caro Buenrostro 08/10/2019 [facility] Sarabjit humphrey Chávez 01:27:00 Medical C enter : Caro PM EDT Asluz marinalosReferrer : Caro Galdamez OutpatientOFFICE/OUT Attender: Taye [facility] 08/10/2019 [facility] PATIENT VISIT, [facility] 01:27:00 [facility] EDT - Medical 08/10/2019 [place]) 01:27:00 PM EDT Outpatient 08/10/2019 [facility] 09:26:00 Medical Center AM EDT Outpatient 08/10/2019 [facility] 12:00:00 Medical Center AM EDT Outpatient Attender: Rebecca 06/15/2019 [facility] VelezAdmitter: 09:51:00 Medical Ce nter Rebecca AM EDT VelezReferrer: Rebecca De La Fuente OutpatientOFFICE/OUT Attender: [facility] 06/15/2019 N EXTGEN ([facility] PATIENT VISIT, [facility] 09:51:00 Jessie sephs AM EDT - [facility] 06/15/2019 [place]) 09:51:00 AM EDT Outpatient 06/15/2019 [facility] 12:00:00 Medical Center AM EDT Attender: [facility] 06/14/2019 NEXT[facility] N ([facility] 09:57:00 Diego AM EDT - [facility] 06/14/2019 [place]) 09:57:00 AM EDT Outpatient 06/09/2019 [facility] 02:07:00 [facility] PM EST Outpatient Attender: [facility] 06/09/2019 [facility] AszalosAdmitter 08:44:00 Medical C enter : Caro AM EST AszalosReferrer : Caro Galdamez OutpatientOFFICE/OUT Attender: [facility] 06/09/2019 N [facility] ([facility] PATIENT VISIT, [facility] 08:44:00 Jessie sephs EST - Medical 06/09/2019 [place]) 08:44:00 AM EST Outpatient 06/09/2019 [facility] 12:00:00 [facility] AM EST Attender: [facility] 03/16/2019 NEXTGEN ([facility] 02:20:00 [facility] PM EST - Medical 03/16/2019 Center) 02:20:00 PM EST Outpatient 03/07/2019 [facility] 01:38:00 Medical Center PM EST Outpatient Attender: H 03/07/2019 [facility] Rodika 09:07:00 [facility] Coloka-Kump AM EST DOAdmitter: Abebe Coloka-Kump DOReferrer: Rodagnieszka Coloka-Kump DO OutpatientOFFICE/OUT Attender: [facility] 03/07/2019 N [facility] ([facility] PATIENT VISIT, [facility] 09:07:00 Jessie sephs EST - Medical 03/07/2019 Center) 09:07:00 AM EST Outpatient 03/07/2019 [facility] 12:00:00 Medical [place] AM EST Attender: [facility] 03/06/2019 NEXTGEN ([facility] 09:21:00 Diego AM [facility] Medical 03/06/2019 [place]) 09:21:00 AM EST Outpatient 02/21/2019 [facility] 01:05:00 Medical [place] PM EST Outpatient 02/21/2019 [facility] 12:00:00 Medical [place] AM EST Attender: [facility] 02/20/2019 NEXTGEN ([facility] 10:53:00 [facility] Medical 02/20/2019 [place]) 10:53:00 AM EST Outpatient Attender: H 12/30/2018 [facility] Rodika 10:32:00 [facility] Coloka-Kump AM EDT DOAdmitter: Rodika Coloka-Kump DOReferrer: Rodika Coloka-Kump DO OutpatientOFFICE/OUT Attender: [facility] 12/30/2018 N EXTG[facility] ([facility] PATIENT VISIT, [facility] 10:32:00 [facility] AM EDT - [facility] 12/30/2018 [place]) 10:32:00 AM EDT Outpatient 12/30/2018 [facility] 10:21:00 [facility] AM EDT Outpatient 12/30/2018 [facility] 12:00:00 [facility] AM EDT Attender: [facility] 12/29/2018 NEXTGEN ([facility] 12:59:00 [facility] PM EDT - [facility] 12/29/2018 [place]) 12:59:00 PM EDT Outpatient 12/19/2018 [facility] 10:24:00 Medical [place] AM EDT Outpatient 12/19/2018 [facility] 12:00:00 [facility] AM EDT Outpatient 12/01/2018 [facility] 01:11:00 [facility] PM EDT Outpatient Attender: H 12/01/2018 [facility] Rodika 10:07:00 [facility] Coloka-Kump AM EDT DOAdmitter: Rodika Coloka-Kump DOReferrer: Rodika Coloka-Kump DO OutpatientOFFICE/OUT Attender: [facility] 12/01/2018 N EXTG[facility] ([facility] PATIENT VISIT, [facility] 10:07:00 Robert Harkins AM EDT - Medical 12/01/2018 Center) 10:07:00 AM EDT Outpatient 12/01/2018 [facility] 12:00:00 Medical Center AM EDT Outpatient 11/24/2018 [facility] 12:33:00 Medical Center PM EDT Outpatient Attender: Rebecca Buenrostro 11/24/2018 [facility] grimested De La FuenteAdmitter: 11:20:00 Medical Ce nter Rebecca AM EDT VelezReferrer: Rebecca De La Fuente OutpatientWell Attender: [facility] 11/24/2018 NEXTGEN ([facility] 11:20:00 Diego Est,18-39years [place] AM EDT - Medical 11/24/2018 Center) 11:20:00 AM EDT Outpatient 11/24/2018 [facility] 12:00:00 Medical Center AM EDT Attender: Colin [facility] 05/04/2017 NEXTGEN ([facility] 12:53:00 Diego PM EST - Medical 05/04/2017 Center) 12:53:00 PM EST Attender: Yohana [facility] 12/21/2016 NEXTGEN ([facility] Jeffrey [place] 03:11:00 Diego PM EDT - Medical 12/21/2016 Center) 03:11:00 PM EDT Attender: [facility] 03/20/2016 NEXTGEN ( int Harmony [place] 03:02:00 Diego Cloud MD PM EST - Medical 03/20/2016 Center) 03:02:00 PM EST Attender: [facility] 12/11/2015 [facility] Diego AM EDT - Medical 12/11/2015 Center) 11:49:00 AM EDT Attender: Nay [facility] 05/08/2015 [facility]EXTGE N ([facility] [place] 11:12:00 Diego AM EST - Medical 05/08/2015 Center) 11:12:00 AM EST Attender: Yanick [facility] 03/18/2015 NEXTGE N ([facility] Luc Mayorga [place] 02:08:00 Diego PM EST - Medical 03/18/2015 Center) 02:08:00 PM EST Attender: [facility] 01/01/2015 NEXTGEN (Sa int Rodagnieszka [place] 02:15:00 Diego Coloka-Kump DO PM EDT - Medical 01/01/2015 Center) 02:15:00 PM EDT Attender: [facility] 12/26/2014 NEXTGEN ( int [facility] 09:52:00 Diego AM EDT - Medical 12/26/2014 Center) 09:52:00 AM EDT Attender: [facility] 12/14/2014 NEXTGE N ([facility] 01:32:00 Diego PM EDT - Medical 12/14/2014 Center) 01:32:00 PM EDT Attender: [facility] 11/12/2014 NEXTGE N ([facility] 02:30:00 Diego PM EDT - Medical 11/12/2014 Center) 02:30:00 PM EDT Attender: [facility] 10/24/2014 NEXTGE N ([facility] 05:46:00 Diego PM EDT - Medical 10/24/2014 Center) 05:46:00 PM EDT Attender: [facility] 06/11/2014 NEXTGEN ([facility] 11:36:00 Diego AM EDT - Medical 06/11/2014 Center) 11:36:00 AM EDT Attender: [facility] 06/04/2014 NEXTGE N ([facility] 09:52:00 Diego AM EST - Medical 06/04/2014 Center) 09:52:00 AM EST Attender: [facility] 02/12/2014 NEXTGEN ([facility] 10:51:00 Diego AM EST - Medical 02/12/2014 Center) 10:51:00 AM EST Attender: [facility] 02/01/2014 [facility]EXTGE N ([facility] 01:42:00 Diego PM EDT - Medical 02/01/2014 Center) 01:42:00 PM EDT Attender: [facility] 11/20/2013 NEXTGE N ([facility] 01:27:00 Diego PM EDT - Medical 11/20/2013 Center) 01:27:00 PM EDT Attender: [facility] 10/18/2013 NEXTGE N ([facility] 10:57:00 Diego AM EDT - Medical 10/18/2013 Center) 10:57:00 AM EDT Attender: [facility] 10/13/2013 NEXTGE N ([facility] 01:47:00 Diego PM EDT - Medical 10/13/2013 Center) 01:47:00 PM EDT Attender: [facility] 07/19/2013 NEXTGEN ([facility] 11:37:00 Diego AM EDT - Medical 07/19/2013 Center) 11:37:00 AM EDT Attender: [facility] 07/10/2013 NEXTGE N ([facility] 11:03:00 Diego AM EDT - Medical 07/10/2013 Center) 11:03:00 AM EDT Attender: [facility] 06/27/2013 NEXTGE N ([facility] 01:59:00 Diego PM EDT - Medical 06/27/2013 Center) 01:59:00 PM EDT Attender: [facility] 05/03/2013 NEXTGEN ([facility] 11:22:00 Diego AM EST - Medical 05/03/2013 Center) 11:22:00 AM EST Attender: [facility] 04/10/2013 NEXTGE N ([facility] 03:20:00 Diego PM EST - Medical 04/10/2013 Center) 03:20:00 PM EST Attender: [facility] 09/07/2012 NEXTGEN ([facility] 01:56:00 Diego PM EDT - Medical 09/07/2012 Center) 01:56:00 PM EDT Attender: [facility] 08/15/2012 NEXTGE N ([facility] 10:42:00 Diego AM EDT - Medical 08/15/2012 Center) 10:42:00 AM EDT Attender: [facility] 08/08/2012 NEXTGE N ([facility] 10:33:00 Diego AM EDT - Medical 08/08/2012 Center) 10:33:00 AM EDT Attender: [facility] 08/01/2012 NEXTGE N ([facility] 02:45:00 Diego PM EDT - Medical 08/01/2012 Center) 02:45:00 PM EDT Attender: [facility] 12/22/2011 NEXTGE N ([facility] 01:40:00 Diego PM EDT - Medical 12/22/2011 Center) 01:40:00 PM EDT Attender: [facility] 09/30/2011 NEXTGE N ([facility] 09:20:00 Diego AM EDT - Medical 09/30/2011 Center) 09:20:00 AM EDT Attender: [facility] 09/16/2011 NEXTGE N ([facility] 10:18:00 Diego AM EDT - Medical 09/16/2011 Center) 10:18:00 AM EDT Attender: [facility] 08/12/2011 NEXTGE N ([facility] 10:37:00 Diego AM EDT - Medical 08/12/2011 Center) 10:37:00 AM EDT Attender: [facility] 08/05/2011 NEXTGE N ([facility] 11:13:00 Diego AM EDT - Medical 08/05/2011 Center) 11:13:00 AM EDT Attender: [facility] 05/27/2011 NEXTGE N ([facility] 02:10:00 Diego PM EST - Medical 05/27/2011 Center) 02:10:00 PM EST Attender: [facility] 05/13/2011 NEXTGEN ([facility] 03:01:00 Diego Ringsta PM EST - Medical 05/13/2011 Center) 03:01:00 PM EST Immunizations Vaccine Date Status Description Data Source(s) New in 2011. IIV4 05/04/2017 completed Influenza, injectable, NEXTGEN ([facility] 12:00:00 AM EST quadrivalent, [facility] Med ical preservative free, 3 Center) yrs or older Source: New Immunization Record New in 2011. 03/20/2016 12:00:00 completed Influenza virus NEXTG EN ([facility] IIV4 AM EST vaccine, injectable, [facility] Medical quadrivalent, split Center) virus, preservative free, 3 years or older Fluarix Quad [id number] Source: New Immunization Record Tdap 10/18/2013 12:00:00 AM EDT completed Tdap N EXTGEN ([facility]) Source: New Immunization Record This code is being retired. It completed Flu (split ) (3 yrs or [facility]EXTGEN ([facility] will still be found in older older) [facility] immunization records. It Jason ter) included both preservative free and non-preservative free. Source: New Immunization Record IIV3. This is one of two completed Influenza, seaso nal, [facility]GEN ([facility] [place] codes replacing CVX 15, injectable (3 yrs or Medical Center) which is being retired. older) Source: New Immunization Record Medications Medication Brand Start Product Dose Route Administrative Pharm[facility] Indications Reaction Description Data Name Date Form Instructions Instructions Source(s) Diphenhydra Benadr ORAL active Diphenh ydram NEXTGEN mine yl 25 2019 {caps ine ([facility] Hydrochlori mg 12:00: ule} Hydrochlori d Diego de 25 MG capsul 00 AM e 25 MG Oral Medical Oral e EDT Capsule Center) Capsule [Benadryl] [Benadryl] Benadryl 25 mg capsule Sulfamethox Bactri ORAL active Sulfame thoxa NEXTGEN azole 800 m DS 2019 {tbl} zole 800 MG (S aint MG / 800 12:00: / Diego Trimethopri mg-160 00 AM Trimethopr im Medical m 160 MG mg EDT 160 MG Oral Cent er) Oral Tablet tablet Tablet [Bactrim] [Bactrim] Bactrim DS 800 mg-160 mg tablet Ibuprofen ibupro ORAL active take 1 NE XTGEN 400 MG Oral fen 2019 {tbl} tablet by (S aint Tablet 400 mg 12:00: oral route Sarabjit ephs ibuprofen tablet 00 AM every 4 - 6 Medical 400 mg EDT hours as Center) tablet needed carbamide Debrox Not active carbamide NEXTGEN peroxide 65 6.5 % 2019 drop Applic peroxide 6 5 ([facility] MG/ML Otic ear 12:00: able MG/ML Otic J osephs Solution drops 00 AM Solution Medic al [Debrox] EDT [Debrox] Center) Debrox 6.5 % ear drops Metronidazo Metrog VAGINA complet Metr onidazol NEXTGEN le 0.0075 el 2019 appli L ed e 0.0075 (Yeison t MG/MG Vagina 12:00: cator MG/MG Diego Vaginal Gel l 0.75 00 AM ful Vaginal Ge l Medical [MetroGel] % EST [MetroGel] Jason ter) Metrogel Vaginal 0.75 % terbinafine terbin 06/08/ active take 1 NEXTGEN 250 MG Oral afine 2019 tablet by (S aint Tablet HCl 12:00: oral route Oliverio hs terbinafine 250 mg 00 AM every day Medical HCl 250 mg tablet EST for 12 weeks Center) tablet Fluconazole flucon .00 ORAL complet take 1 NEXTGEN 150 MG Oral azole 2019 {tbl} ed tablet by ( [facility] Tablet 150 mg 12:00: oral route Sarabjit ephs fluconazole tablet 00 AM once Medic al 150 mg EST Center) tablet terconazole tercon VAGINA complet inse rt 1 NEXTGEN 80 MG azole 2019 suppo L ed suppository (Yeison t Vaginal 80 mg 12:00: sitor by vaginal Jessie sephs Suppository vagina 00 AM y route roney ry Medical terconazole l EST day at Center ) 80 mg suppos bedtime vaginal itory suppository NITROFURANT nitrof . ORAL complet take 1 NEXTGEN OIN, uranto 2019 {caps ed capsule by ([facility] MACROCRYSTA in 12:00: ule} oral route Diego LS 50 MG macroc 00 AM every 6 Medic al Oral rystal EDT hours with Center) Capsule 50 mg food nitrofurant capsul oin e macrocrysta l 50 mg capsule terbinafine terbin 12/01/ complet take 1 NEXTGEN 250 MG Oral afine 2019 ed tablet by (S aint Tablet HCl 12:00: oral route Oliverio hs terbinafine 250 mg 00 AM every day Medical HCl 250 mg tablet EDT for 12 weeks Center) tablet 28 PNV 05/04/ complet take 1 N EXTGEN mg iron-800 [id number] ed tablet jose daniel y ([facility] mcg tablet ferrou 12:00: Oliverio hs s 00 AM Medical fum/fo EST Center) lic ac Fluconazole flucon .00 ORAL complet take 1 NEXTGEN 150 MG Oral azole 2017 {tbl} ed tablet by ( [facility] Tablet 150 mg 12:00: oral route Sarabjit ephs fluconazole tablet 00 AM once Medic al 150 mg EDT Center) tablet Ofloxacin 3 ofloxa 12/10/ complet two dr ops NEXTGEN MG/ML Otic jesús 2015 ed twice a day (S aint Solution 0.3 % 12:00: for 5 days Jessie sephs ofloxacin ear 00 AM Medical 0.3 % ear drops EDT Center) drops Amoxicillin amoxic take 1 NEXTGEN 500 MG Oral illin 2015 ed capsule by ( [facility] Capsule 500 mg 12:00: oral route Jessie sephs amoxicillin capsul 00 AM every 8 Me dical 500 mg e EDT hours for 7 Center ) capsule days Ibuprofen ibupro ORAL complet take 1 N EXTGEN 400 MG Oral fen 2015 {tbl} ed tablet by (S aint Tablet 400 mg 12:00: oral route Sarabjit ephs ibuprofen tablet 00 AM every 4 - 6 Medical 400 mg EST hours as Center) tablet needed Amoxicillin amoxic ORAL complet take 1 NEXTGEN 875 MG Oral illin 2015 {tbl} ed tablet by ( [facility] Tablet 875 mg 12:00: oral route Sarabjit ephs amoxicillin tablet 00 AM every 12 M edical 875 mg EST hours Center) tablet Amoxicillin amoxic ORAL complet take 1 NEXTGEN 875 MG Oral illin 2015 {tbl} ed tablet by ( [facility] Tablet 875 mg 12:00: oral route Sarabjit ephs amoxicillin tablet 00 AM every 12 M edical 875 mg EST hours Center) tablet Metronidazo metron 01/01/ TOPICA complet appl y by NEXTGEN le 7.5 idazol 2014 L ed topical ([facility] MG/ML e 0.75 12:00: route 2 Diego Topical % 00 AM times every Medi abdiaziz Cream topica EDT day a thin Center ) metronidazo l layer to the le 0.75 % cream affected topical area(s) in cream the morning and evening Clomiphene clomip ORAL complet take 1 NEXTGEN Citrate 50 hene 2014 {tbl} ed tablet by (Sa int MG Oral citrat 12:00: oral route Jessie sephs Tablet e 50 00 AM every day Medical clomiphene mg EDT Center) citrate 50 tablet mg tablet take 1 50 mg tablet orally on 5th day of cycle until day 9 for 3 months Metronidazole metronidazole 12/26/2014 TOPICAL complete d apply by NEXTGEN 7.5 MG/ML 0.75 % topical 12:00:00 AM topical ([facility] Topical Cream cream EDT route 2 Jessie sephs metronidazole times Medic al 0.75 % topical every day Center) cream a thin layer to the affected area(s) in the morning and evening Clomiphene clomiphene 12/26/2014 1. ORAL completed take 1 NEXTGEN Citrate 50 MG citrate 50 mg 12:00:00 AM 00 tablet by ([facility] Oral Tablet tablet EDT {t oral Robert s clomiphene bl route Medical citrate 50 mg } every day C enter) tablet take 1 50 mg tablet orally on 5th day of cycle until day 9 for 3 months Pepcid 20 mg FAMOTIDINE 11/12/2014 1.00 ORAL completed take 1 NEXTGEN tablet 12:00:00 AM {tbl} tablet by ([facility] EDT oral route 2 Diego times every Medical day Center) Simethicone simethicone 80 10/24/2014 1 ORAL completed chew 1 NEXTGEN 80 MG mg chewable 12:00:00 AM {tbl} tabl et by ([facility] Chewable tablet EDT oral route Sarabjit ephs Tablet every 2 days Medic al simethicone [place]) 80 mg chewable tablet POLYETHYLENE Miralax 17 06/04/2014 17 G ORAL completed POLYETHYLENE NEXTGEN GLYCOL 3350 gram/dose oral 12:00:00 AM GLYCOL 3350 (Saint 142 MG/ML powder EST 72035 MG Marcell phs Oral Solution Powder for Medical [Miralax] Oral Center) Miralax 17 Solution gram/dose [Miralax] oral powder Fluconazole fluconazole 150 06/04/2014 1.00 ORAL completed take 1 NEXTGEN 150 MG Oral mg tablet 12:00:00 AM {tbl} tablet by ([facility] Tablet EST oral route Diego fluconazole once Medical 150 mg tablet Center ) NITROFURANTOI nitrofurantoin 06/04/2014 1 ORAL completed take 1 NEXTGEN N, macrocrystal 12:00:00 AM {capsu cap shena by ([facility] MACROCRYSTALS 100 mg capsule EST le} o ral route Diego 100 MG Oral every 12 Medi abdiaziz Capsule hours for 7 Cente r) nitrofurantoi days with n food macrocrystal 100 mg capsule Metronidazole metronidazole 02/12/2014 1 ORAL completed take 1 NEXTGEN 500 MG Oral 500 mg tablet 12:00:00 AM {tbl} tablet by ([facility] Tablet EST oral route Diego metronidazole every 12 Me dical 500 mg tablet hours Cente r) Place instructions on bottle in AMERICAN please POLYETHYLENE Miralax 17 02/01/2014 17 G ORAL completed POLYETHYLENE NEXTGEN GLYCOL 3350 gram/dose 12:00:00 AM G LYCOL 3350 ( 142 MG/ML Oral oral powder EDT 170 00 MG Diego Solution Powder for Medic al [Miralax] Oral Solution C enter) Miralax 17 [Miralax] gram/dose oral powder Fluconazole fluconazole 11/20/2013 1.00 ORAL completed take 1 tablet NEXTGEN 150 MG Oral 150 mg tablet 12:00:00 AM {tbl (150MG) by ( Tablet EDT } oral route Diego fluconazole once Medical 150 mg tablet [place] ) Insurance Providers Payer name Policy type Policy ID Covered Covered green party's Policy P christal / Coverage green party ID relationship to [facility] ormation type [facility] O 01 MEDICAID [id number] SP [id number] [facility] [id number] HEALTH NON CAP Problems, Conditions, and Diagnoses Code Display Name Description Problem Effective Data Type Dates Source(s) 6655653000231 Influenza vaccine Influenza vaccine Problem 12/15/19 15 NEXTGEN needed needed 12:00:00 AM ([facility]) [id number] Irregular periods Irregular periods Problem 12/14/2014 NEXTGEN 12:00:00 AM ([facility]) [id number] Onychomycosis Onychomycosis Problem NEXTGEN ([facility]) H60.10 Cellulitis of CELLULITIS OF Diagnosis 10/18/2019 external ear, EXTERNAL EAR, 11:05:00 AM Diego unspecified ear UNSPECIFIED EAR [facility] N39.0 Urinary tract URINARY TRACT Diagnosis 10/18/2019 infection, site not INFECTION, SITE NOT 11:05:0 0 AM Diego specified SPECIFIED [facility] H91.92 Unspecified hearing UNSPECIFIED HEARING Diagnosis 020 [facility] loss, left ear LOSS, LEFT EAR 01:27:00 PM Oliverio [facility] H61.22 Impacted cerumen, IMPACTED CERUMEN, Diagnosis 08/10/2019 Saint left ear LEFT EAR 01:27:00 PM [facility] Z71.3 Dietary counseling DIETARY COUNSELING Diagnosis 0 [facility] and surveillance AND SURVEILLANCE 09:51:00 [facility] Other specified OTHER SPECIFIED Diagnosis 06/15/2019 Yeison t counseling COUNSELING 09:51:00 AM [facility] Z68.28 Body mass index BODY MASS INDEX Diagnosis 06/15/2019 Yeison t (BMI) 28.0-28.9, (BMI) 28.0-28.9, 09:51:00 AM [facility] adult ADULT [facility] Z01.419 Encounter 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 EXAM Diagnosis 06/15/2019 Sa int gynecological (GENERAL) (ROUTINE) 09:51:00 AM J [facility]ent hospital examination W/O ABN FINDINGS ED Medical (general) (routine) Cente r without abnormal findings E78.00 Pure PURE Diagnosis 06/09/2019 [facility] hypercholesterolemi HYPERCHOLESTEROLEMI 08:44:0 0 AM [facility] a, unspecified A, UNSPECIFIED [facility] N76.0 Acute vaginitis ACUTE VAGINITIS Diagnosis 06/09/2019 Yeison t 08:44:00 AM [facility] E78.1 Pure PURE Diagnosis 12/01/2018 [facility] hyperglyceridemia HYPERGLYCERIDEMIA 10:07:00 AM [facility] B35.1 Tinea unguium TINEA UNGUIUM Diagnosis 12/01/2018 [facility] 10:07:00 AM [facility] Z76.1 Encounter for ENCOUNTER FOR Diagnosis 12/01/2018 [facility] health supervision HEALTH SUPERVISION 10:07:00 AM [facility] and care of [facility] C[facility] OF [facility] Z11.3 Encounter for ENCNTR SCREEN FOR Diagnosis 11/24/2018 Yeison t screening for INFECTIONS W SEXL 11:20:00 AM Sarabjit ephs infections with a MODE OF TRANSMISS [facility] sexual mode of transmission Z00.01 Encounter for ENCOUNTER FOR Diagnosis 11/24/2018 [facility] GENERAL ADULT 11:20:00 AM [facility] medical examination MEDICAL EXAM W EDT M edical with abnormal ABNORMAL FINDINGS Cent er findings Surgeries/Procedures Procedure Description Date Indications Data Source(s) OFFICE/OUTPATIENT VISIT, 10/18/2019 NEX TGEN ([facility] [place]) 12:00:00 AM EDT OFFICE/OUTPATIENT VISIT, 08/10/2019 NEX TGEN ([facility] [place]) 12:00:00 AM EDT OFFICE/OUTPATIENT VISIT, 06/15/2019 NEX TGEN ([facility] EST 12:00:00 AM EDT [facility] - 06/15/2019 Center) 12:00:00 AM EDT OFFICE/OUTPATIENT VISIT, 06/09/2019 NEX TGEN ([facility] EST 12:00:00 AM EST [facility] - 06/09/2019 Center) 12:00:00 AM EST ROUTINE VENIPUNCTURE 06/09/2019 NEXTGEN ([facility] 12:00:00 AM EST [facility] - 06/09/2019 [place]) 12:00:00 AM EST OFFICE/OUTPATIENT VISIT, 03/07/2019 NEX TGEN ([facility] EST 12:00:00 AM EST [facility] - 03/07/2019 [place]) 12:00:00 AM EST OFFICE/OUTPATIENT VISIT, 12/30/2018 NEX TGEN ([facility] EST 12:00:00 AM EDT [facility] - 12/30/2018 Center) 12:00:00 AM EDT OFFICE/OUTPATIENT VISIT, 12/01/2018 NEX TGEN ([facility] EST 12:00:00 AM EDT [facility] - 12/01/2018 [place]) 12:00:00 AM EDT [facility] Est,18-39years 12:00:[address] [facility] 11/24/2018 [place]) 12:00:00 AM EDT Results ID Date Data Source [id number] 10/18/2019 12:50:00 PM EDT [facility] 0 Name Value Range Interpretation Description Data Sup porting Code Source(s) Document(s ) UNK CLEAR <content Saint styleCode="Avis Diego d">Urine Medical Clarity Center </content>LAZARA R <content styleCode="Antonia lics"> (CLEAR )</content> Glucose NEGATIVE <content [facility] [Mass/volume] styleCode="Avis Diego in Urine by d">Urine Medical Test strip Glucose Center </content>NEGA TIVE MG/DL<content styleCode="Antonia lics"> (NEGATIVE MG/DL)</conten t> Color of Urine YELLOW <content [facility] styleCode="Avis [place] d">Color, Medical Urine Center </content>YELL OW <content styleCode="Antonia lics"> (YELLOW )</content> Specific 1.015-1.02 Below low normal <content [facility] gravity of 5 styleCode="Avis Joness Urine by Test d">Urine Medical strip Specific Center [place] </content>1.01 0 L<content styleCode="Antonia lics"> (1.015-1.025 )</content> Hemoglobin NEGATIVE <content [facility] [Presence] in styleCode="Avis Diego Urine by Test d">Urine Blood Medical strip </content>TRAC Center E <content styleCode="Antonia lics"> (NEGATIVE )</content> Ketones NEGATIVE <content [facility] [Mass/volume] styleCode="Avis [place] in Urine by d">Urine Medical Test strip Ketone Center </content>NEGA TIVE MG/DL<content styleCode="Antonia lics"> (NEGATIVE MG/DL)</conten t> UNK NEGATIVE <content Saint styleCode="Avis [place] d">Urine Medical Bilirubin Center </content>NEGA TIVE <content styleCode="Antonia lics"> (NEGATIVE )</content> Leukocyte NEGATIVE <content [facility] esterase styleCode="Avis Diego [Presence] in d">Urine Medical Urine by Test Leukocyte Center strip </content>NEGA TIVE <content styleCode="Antonia lics"> (NEGATIVE )</content> Urobilinogen 0.2-1.0 <content [facility] [Units/volume] styleCode="Avis [place] in Urine by d">Urine Medical Test strip Urobilinogen Center </content>0.2 MG/DL<content styleCode="Antonia lics"> (0.2-1.0 MG/DL)</conten t> pH of Urine by 4.5-8.0 <content Saint Test strip styleCode="Avis Diego d">Urine pH Medical </content>7.5 Center <content styleCode="Antonia lics"> (4.5-8.0 )</content> Nitrite NEGATIVE <content Saint [Presence] in styleCode="Avis Diego Urine by Test d">Urine Medical strip Nitrite Center </content>NEGA TIVE <content styleCode="Antonia lics"> (NEGATIVE )</content> Protein NEGATIVE <content Saint [Mass/volume] styleCode="Avis [place] in Urine by d">Urine Medical Test strip Protein Center </content>NEGA TIVE MG/DL<content styleCode="Antonia lics"> (NEGATIVE MG/DL)</conten t> UNK 0-3 <content styleCode="Avis Joness d">Urine Red Medical Blood Cell Center </content>0-3 HPF<content styleCode="Antonia lics"> (0-3 HPF)</content> UNK 0-3 <content Saint styleCode="Avis Joness d">Urine White Medical Blood Cell Center </content>0-3 HPF<content styleCode="Antonia lics"> (0-3 HPF)</content> ID Date Data Source [id number] 10/18/2019 12:50:00 PM EDT [facility] 400 Name Value Range Interpretation Code Description Data Awa rce(s) Supporting Document(s ) UNK <item><content [facility] [place] styleCode="Bold"> Medical Cent er Culture Report </content>
<t able><tbody><tr>< td>Specimen Number:</td><td>[id number]</td></tr ><tr><td>Sample Collection Date/Time: </td><td> 0 12:50 PM</td></tr><tr>< td>Specimen Source:</td><td>U RINE BLADDER</td></tr> <tr><td>Urine Culture:</td><td> Collection Plate Date: 10/18/2019 14:27 </td></tr><tr><td >Culture Status:</td><td>F inal </td></tr><tr><td >Culture Report:</td><td>C ulture in progress </td></tr><tr><td >[place] Count Urine:</td><td>>1 00,000 CFU/ML </td></tr><tr><td >Preliminary 1:</td><td>LACTOS E CAST IRON DIPPER </td></tr><tr><td >Organism 1:</td><td>ESCHER ICHIA COLI </td></tr></tbody ></table>
<ta ble border="2"><tbody ><tr><td></td><td >1</td></tr><tr>< td>Comment</td><t d></td></tr><tr>< td>Result Value</td><td>ESC HERICHIA COLI </td></tr><tr><td >Result Status</td><td>Fi nal Result</td></tr>< tr><td>AMPICILLIN </td><td><=8 S</td></tr><tr><t d>AMPICILLIN SULBACTAM</td><td ><=4/2 S</td></tr><tr><t d>AZTREONAM</td>< td><=4 S</td></tr><tr><t d>CEFAZOLIN</td>< td><=2 S</td></tr><tr><t d>CEFOTAXIME-ESBL </td><td><= 1 ^N</td></tr><tr>< td>CEFOXITIN</td> <td><= 8 S</td></tr><tr><t d>CEFTAZIDIME</td ><td><=1 S</td></tr><tr><t d>CEFTRIAXONE</td ><td><=1 S</td></tr><tr><t d>CEFUROXIME</td> <td>8 S</td></tr><tr><t d>CIPROFLOXACIN</ td><td>> 2 R</td></tr><tr><t d>ERTAPENEM</td>< td><=0.5 S</td></tr><tr><t d>GENTAMICIN</td> <td><= 4 S</td></tr><tr><t d>LEVOFLOXACIN</t d><td>> 4 R</td></tr><tr><t d>MEROPENEM</td>< td><= 1 S</td></tr><tr><t d>NITROFURANTOIN< /td><td><= 32 S</td></tr><tr><t d>PIPERACILLIN/TA ZOBACTAM</td><td> <= 16 S</td></tr><tr><t d>TETRACYCLINE</t d><td><= 4 S</td></tr><tr><t d>TRIMETHOPRIM/GUZMAN LFAMETHOXAZOLE</t d><td><=2/38 S</td></tr></tbod y></table></item> UNK <item><content [facility] styleCode="Bold"> Medical Cent er Culture Status </content>
<t able><tbody><tr>< td>Specimen Number:</td><td>[id number]</td></tr ><tr><td>Sample Collection Date/Time: </td><td>10/17/ 0 12:50 PM</td></tr><tr>< td>Specimen Source:</td><td>U RINE BLADDER</td></tr> <tr><td>[place] Count Urine:</td><td>>1 00,000 CFU/ML </td></tr><tr><td >Preliminary 1:</td><td>LACTOS E CAST IRON DIPPER </td></tr><tr><td >Culture Status:</td><td>F inal </td></tr><tr><td >Culture Report:</td><td>C ulture in progress </td></tr><tr><td >Urine Culture:</td><td> Collection Plate Date: 10/18/2019 14:27 </td></tr><tr><td >Organism 1:</td><td>ESCHER ICHIA COLI </td></tr></tbody ></table>
<ta ble border="2"><tbody ><tr><td></td><td >1</td></tr><tr>< td>Comment</td><t d></td></tr><tr>< td>Result Value</td><td>ESC HERICHIA COLI </td></tr><tr><td >Result Status</td><td>Fi nal Result</td></tr>< tr><td>AMPICILLIN </td><td><=8 S</td></tr><tr><t d>AMPICILLIN SULBACTAM</td><td ><=4/2 S</td></tr><tr><t d>AZTREONAM</td>< td><=4 S</td></tr><tr><t d>CEFAZOLIN</td>< td><=2 S</td></tr><tr><t d>CEFOTAXIME-ESBL </td><td><= 1 ^N</td></tr><tr>< td>CEFOXITIN</td> <td><= 8 S</td></tr><tr><t d>CEFTAZIDIME</td ><td><=1 S</td></tr><tr><t d>CEFTRIAXONE</td ><td><=1 S</td></tr><tr><t d>CEFUROXIME</td> <td>8 S</td></tr><tr><t d>CIPROFLOXACIN</ td><td>> 2 R</td></tr><tr><t d>ERTAPENEM</td>< td><=0.5 S</td></tr><tr><t d>GENTAMICIN</td> <td><= 4 S</td></tr><tr><t d>LEVOFLOXACIN</t d><td>> 4 R</td></tr><tr><t d>MEROPENEM</td>< td><= 1 S</td></tr><tr><t d>NITROFURANTOIN< /td><td><= 32 S</td></tr><tr><t d>PIPERACILLIN/TA ZOBACTAM</td><td> <= 16 S</td></tr><tr><t d>TETRACYCLINE</t d><td><= 4 S</td></tr><tr><t d>TRIMETHOPRIM/GUZMAN LFAMETHOXAZOLE</t d><td><=2/38 S</td></tr></tbod y></table></item> ID Date Data Source [id number] 10/18/2019 12:50:00 PM EDT NEXTG EN ([facility] [id number] [place]) Name Value Range Interpretation Code Description Data Supporting Source(s) Document(s ) <=8 Susceptible. AMPICILLIN NEXTGEN Indicates for ([facility]) <=4/2 Susceptible. AMPICILLIN NEXTGEN Indicates for SULBACTAM ([facility]) <=4 Susceptible. AZTREONAM NEXTGEN Indicates for ([facility]) <=2 Susceptible. CEFAZOLIN NEXTGEN Indicates for ([facility]) <=1 Susceptible. CEFTRIAXONE NEXTGEN Indicates for ([facility]) <=1 Susceptible. CEFTAZIDIME NEXTGEN Indicates for ([facility]) 8 Susceptible. CEFUROXIME NEXTGEN Indicates for ([facility]) <= 4 Susceptible. GENTAMICIN NEXTGEN Indicates for ([facility]) > 2 Results entered -- CIPROFLOXACIN NEXTGEN not verified ([facility]) <= 1 Susceptible. MEROPENEM NEXTGEN Indicates for ([facility]3]. [place]) > 4 Results entered -- LEVOFLOXACIN NEXTGEN not verified ([facility]) <= 4 Susceptible. TETRACYCLINE NEXTGEN Indicates for ([facility]3]. [place]) <= 16 Susceptible. PIPERACILLIN/TAZOB NEXTGEN Indicates for ACTAM ([facility]) <= 32 Susceptible. NITROFURANTOIN NEXTGEN Indicates for ([facility]3]. [place]) <=2/38 Susceptible. TRIMETHOPRIM/SULFA NEXTGEN Indicates for METHOXAZOLE ([facility]) <=0.5 Susceptible. ERTAPENEM NEXTGEN Indicates for ([facility]) <= 1 CEFOTAXIME-ESBL NEXTGEN ([facility]) <= 8 Susceptible. CEFOXITIN NEXTGEN Indicates for ([facility]) ID Date Data Source [id number] 10/18/2019 12:50:00 PM EDT NEXTG EN ([facility] [id number] [place]) Name Value Range Interpretation Description Data Sup porting Code Source(s) Document(s ) ESCHERICHIA COLI ORGANISM ID [facility] ([facility]) ID Date Data Source [id number] 10/18/2019 12:50:00 PM EDT NEXTG EN ([facility] [id number] [place]) Name Value Range Interpretation Description Data Sup porting Code Source(s) Document(s ) Final CULTURE STATUS [facility] ([facility]) [id number] SPECIMEN NO [facility] ([facility]) URINE BLADDER CULTURE SOURCE [facility] ([facility]) 10/18/2019 COLLECTION DT NEXTGEN 12:50 ([facility]) 10/18/2019 PLATE DT NEXTGEN 14:27 ([facility]) >100,000 COLONY COUNT [facility] CFU/ML ([facility]) Culture in CULTURE REPORT NEXTGEN progress ([facility]) LACTOSE PRELIMINARY 1 NEXTGEN CAST IRON DIPPER ([facility]) ID Date Data Source [id number] 10/18/2019 12:50:00 PM EDT NEXTG EN ([facility] [id number] [place]) Name Value Range Interpretation Description Data Sup porting Code Source(s) Document(s ) [id number] SPECIMEN NO NEXTGEN ([facility]) Preliminary CULTURE STATUS NEXTGEN ([facility]) URINE BLADDER CULTURE SOURCE NEXTGEN ([facility]) 10/18/2019 PLATE DT NEXTGEN 14:27 ([facility]) 10/18/2019 COLLECTION DT NEXTGEN 12:50 ([facility]) [facility] >100,000 CFU/ML [facility]) LACTOSE PRELIMINARY 1 [facility] ([facility]) ID Date Data Source [id number] 10/18/2019 12:50:00 PM EDT NEXTG EN ([facility] [id number] [place]) Name Value Range Interpretation Description Data Sup porting Code Source(s) Document(s ) [id number] [facility] Preliminary [facility]) URINE BLADDER [facility] 10/18/2019 COLLECTION DT NEXTGEN 12:50 ([facility]) Culture in CULTURE REPORT NEXTGEN progress ([facility]) 10/18/2019 PLATE DT NEXTGEN 14:27 ([facility]) ID Date Data Source [id number] 10/18/2019 12:50:00 PM EDT NEXTG EN ([facility] [id number] [place]) Name Value Range Interpretation Description Data Sup porting Code Source(s) Document(s ) YELLOW YELLOW U COLOR NEXTGEN ([facility]) CLEAR CLEAR U CL[facility]ITY [facility]) NEGATIVE NEGATIVE U BILIRUBIN NEXTGEN ([facility]) NEGATIVE NEGATIVE U [facility]ONE [facility]) NEGATIVE NEGATIVE U GLUCOSE NEXTGEN ([facility]) 1.010 1.015-1.025 Below low normal U SP.GRAVITY [facility]) TRACE NEGATIVE U BLOOD NEXTGEN ([facility]) NEGATIVE NEGATIVE U PROTEIN NEXTGEN ([facility]) 7.5 4.5-8.0 U PH NEXTGEN ([facility]) NEGATIVE NEGATIVE U NITRITE NEXTGEN ([facility]) 0.2 MG/DL 0.2-1.0 U UROBILINOGEN NEXTGEN ([facility]) NEGATIVE NEGATIVE U. LEUKOCYTE NEXTGEN ([facility]) 0-3 0-3 U RBC NEXTGEN ([facility]) 0-3 0-3 U WBC NEXTGEN ([facility]) ID Date Data Source [id number] 10/18/2019 12:44:00 PM EDT NEXTG EN ([facility] [id number] [place]) Name Value Range Interpretation Description Data Sup porting Code Source(s) Document(s ) negative Bilirubin NEXTGEN ([facility]) negative Blood NEXTGEN ([facility]) cloudy [facility]arity [facility]) Urinalysis light Color NEXTGEN dipstick yellow ([facility] by Automated Medical test strip Center) negative Ketones [facility]) 1.005 [place] NEXTGEN ([facility]) trace Leukocytes [facility] ([facility]) negative Nitrite [facility] ([facility]) 6.0 pH NEXTGEN ([facility]) negtive Protein NEXTGEN ([facility]) negative Glucose NEXTGEN ([facility]) 0.2 [facility]robilinogen [facility]) ID Date Data Source Liver 06/14/2019 09:34:00 AM EDT [facility] [id number] Name Value Range Interpretation Description Data Sup porting Code Source(s) Document(s ) Aspartate 14-36 <content [facility] aminotransferase styleCode="Bold"> Oliverio hs [Enzymatic Aspartate Medical activity/volume] Aminotransferase Center in Serum or Plasma (AST) </content>27 IU/L<content styleCode="Italic s"> (14-36 IU/L)</content> Alkaline 38-126 <content [facility] phosphatase styleCode="Bold"> Diego [Enzymatic Alkaline Medical activity/volume] Phosphatase (ALP) Cente r in Serum or Plasma </content>49 IU/L<content styleCode="Italic s"> (38-126 IU/L)</content> Bilirubin.total 0.2-1.3 <content [facility] [Mass/volume] in styleCode="Bold"> Oliverio hs Serum or Plasma Bilirubin Total Medical </content>0.4 Center MG/DL<content styleCode="Italic s"> (0.2-1.3 MG/DL)</content> Albumin 3.5-5.0 <content [facility] [Mass/volume] in styleCode="Bold"> Oliverio hs Serum or Plasma Albumin Medical </content>4.3 Center G/DL<content styleCode="Italic s"> (3.5-5.0 G/DL)</content> Alanine 7-30 <content [facility] aminotransferase styleCode="Bold"> Oliverio hs [Enzymatic Alanine Medical activity/volume] Aminotransferase Center in Serum or Plasma (ALT) </content>21 IU/L<content styleCode="Italic s"> (7-30 IU/L)</content> ID Date Data Source [id number] 06/14/2019 09:34:[address] [facility] Name Value Range Interpretation Description Data Sup porting Code Source(s) Document(s ) Triglyceride < 150 <content Saint [Mass/volume] in styleCode="Avis Joness Serum or Plasma d">Triglycerid Medical es Center </content>147 MG/DL<content styleCode="Antonia lics"> (< 150 MG/DL)</conten t> UNK > 60 Below low normal <content Saint styleCode="Avis [place] d">HDL- Medical Cholesterol Center </content>52 MG/DL L<content styleCode="Antonia lics"> (> 60 MG/DL)</conten t> UNK < 100 <content Saint styleCode="Avis [place] d">LDL-Cholest Medical rochelle Center </content>88 MG/DL<content styleCode="Antonia lics"> (< 100 MG/DL)</conten t> Cholesterol -<200 <content Saint [Mass/volume] in styleCode="Avis Diego Serum or Plasma d">Cholesterol Medical </content>169 Center MG/DL<content styleCode="Antonia lics"> (-<200 MG/DL)</conten t> ID Date Data Source [id number] 06/14/2019 09:34:00 AM EDT [facility] 0400 Name Value Range Interpretation Description Data Sup porting Code Source(s) Document(s ) Erythrocytes 4.0-5.1 <content Saint [#/volume] in styleCode="Bold Diego Blood by ">Red Blood Medical Automated count Cell Count Center </content>4.17 [facility]<content styleCode="Ital ics"> (4.0-5.1 [facility])</content > Leukocytes 4.4-11.0 <content Saint [#/volume] in styleCode="Bold Diego Blood by ">White Blood Medical Automated count Cell Count Center </content>6.29 KCUMM<content styleCode="Ital ics"> (4.4-11.0 KCUMM)</content > Hemoglobin 12.3-16. <content [facility] [Mass/volume] in 0 styleCode="Bold [place] Blood ">Hemoglobin Medical </content>12.8 Center G/DL<content styleCode="Ital ics"> (12.3-16.0 G/DL)</content> Hematocrit 36.0-46. <content [facility] [Volume 0 styleCode="Bold [place] Fraction] of ">Hematocrit Medical Blood by </content>38.4 Center Automated count %<content styleCode="Ital ics"> (36.0-46.0 %)</content> Erythrocyte mean 26.0-34. <content [facility] corpuscular 0 styleCode="Bold [place] hemoglobin ">Mean Medical [Entitic mass] Corposcular Center by Automated Hemoglobin count </content>30.7 PG<content styleCode="Ital ics"> (26.0-34.0 PG)</content> Erythrocyte mean 80.0-100 <content [facility] corpuscular .0 styleCode="Bold [place] volume [Entitic ">Mean Medical volume] by Corpuscular Center Automated count Volume </content>92.1 FL<content styleCode="Ital ics"> (80.0-100.0 FL)</content> Erythrocyte mean 32.0-37. <content [facility] corpuscular 0 styleCode="Bold [place] hemoglobin ">Mean Corpus. Medical concentration Hgb Center [Mass/volume] by Concentration Automated count (MCHC) </content>33.3 G/DL<content styleCode="Ital ics"> (32.0-37.0 G/DL)</content> Platelets 130-400 <content [facility] [#/volume] in styleCode="Bold [place] Blood by ">Platelet Medical Automated count Count Center </content>224 KCUMM<content styleCode="Ital ics"> (130-400 KCUMM)</content > UNK 0.0 <content [facility] styleCode="Bold [place] ">Nucleated Red Medical Blood Cell Center Count </content>0.00 KCUMM<content styleCode="Ital ics"> (0.0 KCUMM)</content > Erythrocyte 11.5-14. <content [facility] distribution 5 styleCode="Bold [place] width [Ratio] by ">Red Cell Medical Automated count Distribution Center Width </content>12.9 %<content styleCode="Ital ics"> (11.5-14.5 %)</content> UNK 0 <content [facility] styleCode="Bold [place] ">Nucleated Red Medical Blood Cell Center </content>0.0 /100<content styleCode="Ital ics"> (0 /100)</content> Platelet mean 8.0-11.0 Above high <content [facility] volume [Entitic normal styleCode="Bold [place] volume] in Blood ">Mean Platelet Medical by Automated Volume Center count </content>12.7 FL H<content styleCode="Ital ics"> (8.0-11.0 FL)</content> ID Date Data Source GFR(Creatinine).[id number] 06/14/2019 09:34:00 AM EDT [facility] 0-0400 Name Value Range Interpretation Code Description Data Awa rce(s) Supporting Document(s ) UNK > 60 <content [facility] styleCode="Bold"> Medical Cent er EGFR </content>118 GFR<content styleCode="Italic s"> (> 60 GFR)</content> ID Date Data Source CHMROUTESPERANZACCDA.[id number] 06/14/2019 09:34:00 AM EDT [facility] -0400 Name Value Range Interpretation Description Data Sup porting Code Source(s) Document(s ) UNK 2.3-3.5 <content [facility] styleCode="Bold Medical ">Globulin Center </content>2.8 G/DL<content styleCode="Ital ics"> (2.3-3.5 G/DL)</content> UNK 4.2-5.8 <content [facility] styleCode="Bold Medical ">Hemoglobin Center A1C </content>5.4 %<content styleCode="Ital ics"> (4.2-5.8 %)</content> Protein 6.3-8.2 <content [facility] [Mass/volum styleCode="Bold Medical e] in Serum ">Total Protein Center or Plasma </content>7.1 G/DL<content styleCode="Ital ics"> (6.3-8.2 G/DL)</content> UNK >= 1.0 <content [facility] styleCode="Bold Medical ">AG Ratio Center </content>1.5 <content styleCode="Ital ics"> (>= 1.0 )</content> ID Date Data Source [facility].[id number] 06/14/2019 09:34:00 AM EDT [facility] Name Value Range Interpretation Description Data Sup porting Code Source(s) Document(s ) Sodium 137-145 <content [facility] [Moles/volume] in styleCode="Bold"> Marcell phs Serum or Plasma Sodium Medical </content>138 Center MEQ/L<content styleCode="Italic s"> (137-145 MEQ/L)</content> Potassium 3.5-5.3 <content [facility] [Moles/volume] in styleCode="Bold"> Marcell phs Serum or Plasma Potassium Medical </content>4.3 Center MEQ/L<content styleCode="Italic s"> (3.5-5.3 MEQ/L)</content> Chloride 98-107 <content [facility] [Moles/volume] in styleCode="Bold"> Marcell phs Serum or Plasma Chloride Medical </content>105 Center MEQ/L<content styleCode="Italic s"> (98-107 MEQ/L)</content> Carbon dioxide, 22-30 <content [facility] total styleCode="Bold"> [place] [Moles/volume] in Carbon Dioxide Medical Serum or Plasma </content>26 Center MEQ/L<content styleCode="Italic s"> (22-30 MEQ/L)</content> UNK 7-17 <content [facility] styleCode="Bold"> [facility] BUN </content>16 Medical MG/DL<content Center styleCode="Italic s"> (7-17 MG/DL)</content> Creatinine 0.5-1.3 <content [facility] [Mass/volume] in styleCode="Bold"> Oliverio hs Serum or Plasma Creatinine Medical </content>0.6 Center MG/DL<content styleCode="Italic s"> (0.5-1.3 MG/DL)</content> Glucose 74-106 <content [facility] [Mass/volume] in styleCode="Bold"> Oliverio hs Serum or Plasma Glucose Medical </content>97 Center MG/DL<content styleCode="Italic s"> (74-106 MG/DL)</content> Aspartate 14-36 <content [facility] aminotransferase styleCode="Bold"> Oliverio hs [Enzymatic Aspartate Medical activity/volume] Aminotransferase Center in Serum or Plasma (AST) </content>27 IU/L<content styleCode="Italic s"> (14-36 IU/L)</content> UNK > 60 <content [facility] styleCode="Bold"> [place] EGFR Medical </content>118 Center GFR<content styleCode="Italic s"> (> 60 GFR)</content> Alanine 7-30 <content [facility] aminotransferase styleCode="Bold"> Oliverio hs [Enzymatic Alanine Medical activity/volume] Aminotransferase Center in Serum or Plasma (ALT) </content>21 IU/L<content styleCode="Italic s"> (7-30 IU/L)</content> Calcium 8.4-10. <content [facility] [Mass/volume] in 2 styleCode="Bold"> Oliverio hs Serum or Plasma Calcium Medical </content>9.3 Center MG/DL<content styleCode="Italic s"> (8.4-10.2 MG/DL)</content> Alkaline 38-126 <content [facility] phosphatase styleCode="Bold"> [facility] [Enzymatic Alkaline Medical activity/volume] Phosphatase (ALP) Cente r in Serum or Plasma </content>49 IU/L<content styleCode="Italic s"> (38-126 IU/L)</content> Bilirubin.total 0.2-1.3 <content [facility] [Mass/volume] in styleCode="Bold"> Oliverio hs Serum or Plasma Bilirubin Total Medical </content>0.4 Center MG/DL<content styleCode="Italic s"> (0.2-1.3 MG/DL)</content> Albumin 3.5-5.0 <content [facility] [Mass/volume] in styleCode="Bold"> Oliverio hs Serum or Plasma Albumin Medical </content>4.3 Center G/DL<content styleCode="Italic s"> (3.5-5.0 G/DL)</content> ID Date Data Source Urinalysis.[id number] 03/07/2019 10:15:00 AM JAJA [facility] 0 Name Value Range Interpretation Description Data Sup porting Code Source(s) Document(s ) UNK CLEAR <content [facility] styleCode="Avis [place] d">Urine Medical Clarity Center </content>LAZARA R <content styleCode="Antonia lics"> (CLEAR )</content> Glucose NEGATIVE <content [facility] [Mass/volume] styleCode="Avis Cort[place] in Urine by d">Urine Medical Test strip Glucose Center </content>NEGA TIVE MG/DL<content styleCode="Antonia lics"> (NEGATIVE MG/DL)</conten t> Color of Urine YELLOW <content [facility] styleCode="Avis [place] d">Color, Medical Urine Center </content>YELL OW <content styleCode="Antonia lics"> (YELLOW )</content> Hemoglobin NEGATIVE <content [facility] [Presence] in styleCode="Avis [place] Urine by Test d">Urine Blood Medical strip </content>NEGA Center TIVE <content styleCode="Antonia lics"> (NEGATIVE )</content> Ketones NEGATIVE <content [facility] [Mass/volume] styleCode="Avis [place] in Urine by d">Urine Medical Test strip Ketone Center </content>NEGA TIVE MG/DL<content styleCode="Antonia lics"> (NEGATIVE MG/DL)</conten t> Specific 1.015-1.02 Below low normal <content [facility] gravity of 5 styleCode="Avis [place] Urine by Test d">Urine Medical strip Specific Center [place] </content><= 1.005 L<content styleCode="Antonia lics"> (1.015-1.025 )</content> UNK NEGATIVE <content [facility] styleCode="Avis [place] d">Urine Medical Bilirubin Center </content>NEGA TIVE <content styleCode="Antonia lics"> (NEGATIVE )</content> Urobilinogen 0.2-1.0 <content [facility] [Units/volume] styleCode="Avis [place] in Urine by d">Urine Medical Test strip Urobilinogen Center </content>0.2 MG/DL<content styleCode="Antonia lics"> (0.2-1.0 MG/DL)</conten t> Nitrite NEGATIVE <content [facility] [Presence] in styleCode="Avis Joness Urine by Test d">Urine Medical strip Nitrite Center </content>NEGA TIVE <content styleCode="Antonia lics"> (NEGATIVE )</content> Protein NEGATIVE <content [facility] [Mass/volume] styleCode="Avis [place] in Urine by d">Urine Medical Test strip Protein Center </content>NEGA TIVE MG/DL<content styleCode="Antonia lics"> (NEGATIVE MG/DL)</conten t> pH of Urine by 4.5-8.0 <content [facility] Test strip styleCode="Avis Joness d">Urine pH Medical </content>6.5 Center <content styleCode="Antonia lics"> (4.5-8.0 )</content> Leukocyte NEGATIVE <content [facility] esterase styleCode="Avis Cortez [Presence] in d">Urine Medical Urine by Test Leukocyte Center strip </content>SMAL L <content styleCode="Antonia lics"> (NEGATIVE )</content> UNK 0-3 <content [facility] styleCode="Avis Joness d">Urine Red Medical Blood Cell Center </content>0-3 HPF<content styleCode="Antonia lics"> (0-3 HPF)</content> UNK NEGATIVE <content [facility] styleCode="Avis Joness d">Urine Medical Bacteria Center </content>FEW HPF<content styleCode="Antonia lics"> (NEGATIVE HPF)</content> UNK 0-3 <content [facility] styleCode="Avis [place] d">Urine White Medical Blood Cell Center </content>3-5 HPF<content styleCode="Antonia lics"> (0-3 HPF)</content> UNK NONE SEEN <content [facility] styleCode="Avis Joness d">Epithelial Medical Cell Center </content>5 - 10 HPF<content styleCode="Antonia lics"> (NONE SEEN HPF)</content> ID Date Data Source Microbiology.[id number] 03/07/2019 10:15:00 AM EST [facility] 500 Name Value Range Interpretation Description Data Sup porting Code Source(s) Document(s ) UNK <item><content [facility] styleCode="Bold"> [place] Culture Status Medical </content>
<t Center able><tbody><tr>< td>Specimen Number:</td><td>[id number]</td></tr ><tr><td>Sample Collection Date/Time: </td><td> 9 10:15 AM</td></tr><tr>< td>Specimen Source:</td><td>U RINE BLADDER</td></tr> <tr><td>[place] Count Urine:</td><td>50 ,000 CFU/ML </td></tr><tr><td >Preliminary 1:</td><td>LACTOS E CAST IRON DIPPER </td></tr><tr><td >Culture Status:</td><td>F inal </td></tr><tr><td >Culture Report:</td><td>C ulture in progress </td></tr><tr><td >Urine Culture:</td><td> Collection Plate Date: 03/07/2019 12:01 </td></tr><tr><td >Organism 1:</td><td>ESCHER ICHIA COLI </td></tr><tr><td >Organism 2:</td><td>COAGUL ASE NEGATIVE STAPHYLOCOCCUS </td></tr></tbody ></table>
<ta ble border="2"><tbody ><tr><td></td><td >1</td><td>2</td> </tr><tr><td>Comm ent</td><td></td> <td></td></tr><tr ><td>Result Value</td><td>ESC HERICHIA COLI </td><td>COAGULAS E NEGATIVE STAPHYLOCOCCUS </td></tr><tr><td >Result Status</td><td>Fi nal Result</td><td>Fi nal Result</td></tr>< tr><td></td><td>< /td><td></td></tr ><tr><td>AMPICILL IN</td><td><=8 S</td><td></td></ tr><tr><td>AMPICI LLIN SULBACTAM</td><td ><=4/2 S</td><td></td></ tr><tr><td>AZTREO NAM</td><td><=4 S</td><td></td></ tr><tr><td>CEFAZO BERTA</td><td><=2 S</td><td></td></ tr><tr><td>CEFOTA SWETA-ESBL</td><td ><= 1 ^N</td><td></td>< /tr><tr><td>CEFOX ITIN</td><td><= 8 S</td><td></td></ tr><tr><td>CEFTAZ IDIME</td><td><=1 S</td><td></td></ tr><tr><td>CEFTRI AXONE</td><td><=1 S</td><td></td></ tr><tr><td>CEFURO SWETA</td><td><=4 S</td><td></td></ tr><tr><td>CIPROF LOXACIN</td><td>< = 1 S</td><td></td></ tr><tr><td>ERTAPE NEM</td><td><=0.5 S</td><td></td></ tr><tr><td>GENTAM ICIN</td><td><= 4 S</td><td></td></ tr><tr><td>LEVOFL OXACIN</td><td><= 2 S</td><td></td></ tr><tr><td>MEROPE NEM</td><td><= 1 S</td><td></td></ tr><tr><td>NITROF URANTOIN</td><td> <= 32 S</td><td></td></ tr><tr><td>PIPERA CILLIN/TAZOBACTAM </td><td><= 16 S</td><td></td></ tr><tr><td>TETRAC YCLINE</td><td><= 4 S</td><td></td></ tr><tr><td>TRIMET HOPRIM/SULFAMETHO XAZOLE</td><td><= 2/38 S</td><td></td></ tr></tbody></tabl e></item> UNK <item><content [facility] styleCode="Bold"> [facility] Culture Report Medical </content>
<t Center able><tbody><tr>< td>Specimen Number:</td><td>[id number]</td></tr ><tr><td>Sample Collection Date/Time: </td><td> 9 10:15 AM</td></tr><tr>< td>Specimen Source:</td><td>U RINE BLADDER</td></tr> <tr><td>Prelimina ry 1:</td><td>LACTOS E CAST IRON DIPPER </td></tr><tr><td >Urine Culture:</td><td> Collection Plate Date: 03/07/2019 12:01 </td></tr><tr><td >Culture Status:</td><td>F inal </td></tr><tr><td >Culture Report:</td><td>C ulture in progress </td></tr><tr><td >[place] Count Urine:</td><td>50 ,000 CFU/ML </td></tr><tr><td >Organism 1:</td><td>ESCHER ICHIA COLI </td></tr><tr><td >Organism 2:</td><td>COAGUL ASE NEGATIVE STAPHYLOCOCCUS </td></tr></tbody ></table>
<ta ble border="2"><tbody ><tr><td></td><td >1</td><td>2</td> </tr><tr><td>Comm ent</td><td></td> <td></td></tr><tr ><td>Result Value</td><td>ESC HERICHIA COLI </td><td>COAGULAS E NEGATIVE STAPHYLOCOCCUS </td></tr><tr><td >Result Status</td><td>Fi nal Result</td><td>Fi nal Result</td></tr>< tr><td></td><td>< /td><td></td></tr ><tr><td>AMPICILL IN</td><td><=8 S</td><td></td></ tr><tr><td>AMPICI LLIN SULBACTAM</td><td ><=4/2 S</td><td></td></ tr><tr><td>AZTREO NAM</td><td><=4 S</td><td></td></ tr><tr><td>CEFAZO BERTA</td><td><=2 S</td><td></td></ tr><tr><td>CEFOTA SWETA-ESBL</td><td ><= 1 ^N</td><td></td>< /tr><tr><td>CEFOX ITIN</td><td><= 8 S</td><td></td></ tr><tr><td>CEFTAZ IDIME</td><td><=1 S</td><td></td></ tr><tr><td>CEFTRI AXONE</td><td><=1 S</td><td></td></ tr><tr><td>CEFURO SWETA</td><td><=4 S</td><td></td></ tr><tr><td>CIPROF LOXACIN</td><td>< = 1 S</td><td></td></ tr><tr><td>ERTAPE NEM</td><td><=0.5 S</td><td></td></ tr><tr><td>GENTAM ICIN</td><td><= 4 S</td><td></td></ tr><tr><td>LEVOFL OXACIN</td><td><= 2 S</td><td></td></ tr><tr><td>MEROPE NEM</td><td><= 1 S</td><td></td></ tr><tr><td>NITROF URANTOIN</td><td> <= 32 S</td><td></td></ tr><tr><td>PIPERA CILLIN/TAZOBACTAM </td><td><= 16 S</td><td></td></ tr><tr><td>TETRAC YCLINE</td><td><= 4 S</td><td></td></ tr><tr><td>TRIMET HOPRIM/SULFAMETHO XAZOLE</td><td><= 2/38 S</td><td></td></ tr></tbody></tabl e></item> UNK <item><content [facility] styleCode="Bold"> [facility] </content>
<t able><tbody><tr>< td>Specimen Number:</td><td>[id number]</td></tr ><tr><td>Sample Collection Date/Time: </td><td> 9 10:15 AM</td></tr><tr>< td>Specimen Source:</td><td>V AGINAL</td></tr>< tr><td>C. Parapsilosis, DNA:</td><td>Not Detected </td></tr><tr><td >BV Category:</td><td >SUPPORTIVE </td></tr><tr><td >T Vaginalis RNA,QL TMA:</td><td>Not Detected </td></tr><tr><td >C. Albicans, DNA:</td><td>Dete cted </td></tr><tr><td >C. Glabrata, DNA:</td><td>Not Detected </td></tr><tr><td >C. Tropicalis, DNA:</td><td>Not Detected </td></tr><tr><td >Lactobacillus Species:</td><td> Not Detected </td></tr><tr><td >Atopobium Vaginae:</td><td> Not Detected </td></tr><tr><td >Megasphaera Species:</td><td> Not Detected </td></tr><tr><td >Gardnerella Vaginalis:</td><t d>>8.0 </td></tr></tbody ></table></item> UNK <item><content [facility] styleCode="Bold"> [facility] Atopobium Vaginae [facility] </content>
<t Center able><tbody><tr>< td>Specimen Number:</td><td>[id number]</td></tr ><tr><td>Sample Collection Date/Time: </td><td> 10:15 AM</td></tr><tr>< td>Specimen Source:</td><td>V AGINAL</td></tr>< tr><td>Gardnerell a Vaginalis:</td><t d>>8.0 </td></tr><tr><td >Megasphaera Species:</td><td> Not Detected </td></tr><tr><td >Atopobium Vaginae:</td><td> Not Detected </td></tr><tr><td >Lactobacillus Species:</td><td> Not Detected </td></tr><tr><td >C. Tropicalis, DNA:</td><td>Not Detected </td></tr><tr><td >C. Glabrata, DNA:</td><td>Not Detected </td></tr><tr><td >C. Albicans, DNA:</td><td>Dete cted </td></tr><tr><td >T Vaginalis RNA,QL TMA:</td><td>Not Detected </td></tr><tr><td >BV Category:</td><td >SUPPORTIVE </td></tr><tr><td >C. Parapsilosis, DNA:</td><td>Not Detected </td></tr></tbody ></table></item> UNK <item><content [facility] styleCode="Bold"> [facility] </content>
<t able><tbody><tr>< td>Specimen Number:</td><td>[id number]</td></tr ><tr><td>Sample Collection Date/Time: </td><td> 9 10:15 AM</td></tr><tr>< td>Specimen Source:</td><td>V AGINAL</td></tr>< tr><td>C. Parapsilosis, DNA:</td><td>Not Detected </td></tr><tr><td >BV Category:</td><td >SUPPORTIVE </td></tr><tr><td >T Vaginalis RNA,QL TMA:</td><td>Not Detected </td></tr><tr><td >C. Albicans, DNA:</td><td>Dete cted </td></tr><tr><td >C. Glabrata, DNA:</td><td>Not Detected </td></tr><tr><td >C. Tropicalis, DNA:</td><td>Not Detected </td></tr><tr><td >Lactobacillus Species:</td><td> Not Detected </td></tr><tr><td >Atopobium Vaginae:</td><td> Not Detected </td></tr><tr><td >Megasphaera Species:</td><td> Not Detected </td></tr><tr><td >Gardnerella Vaginalis:</td><t d>>8.0 </td></tr></tbody ></table></item> UNK Not Detected <item><content [facility] styleCode="Bold"> [place] C. Glabrata, DNA Medical </content>
<t Center able><tbody><tr>< td>Specimen Number:</td><td>[id number]</td></tr ><tr><td>Sample Collection Date/Time: </td><td> 9 10:15 AM</td></tr><tr>< td>Specimen Source:</td><td>V AGINAL</td></tr>< tr><td>C. Parapsilosis, DNA:</td><td>Not Detected </td></tr><tr><td >BV Category:</td><td >SUPPORTIVE </td></tr><tr><td >T Vaginalis RNA,QL TMA:</td><td>Not Detected </td></tr><tr><td >C. Albicans, DNA:</td><td>Dete cted </td></tr><tr><td >C. Glabrata, DNA:</td><td>Not Detected </td></tr><tr><td >C. Tropicalis, DNA:</td><td>Not Detected </td></tr><tr><td >Lactobacillus Species:</td><td> Not Detected </td></tr><tr><td >Atopobium Vaginae:</td><td> Not Detected </td></tr><tr><td >Megasphaera Species:</td><td> Not Detected </td></tr><tr><td >Gardnerella Vaginalis:</td><t d>>8.0 </td></tr></tbody ></table></item> UNK Not Detected <item><content [facility] styleCode="Bold"> [place] C. Albicans, DNA Medical </content>
<t Center able><tbody><tr>< td>Specimen Number:</td><td>[id number]</td></tr ><tr><td>Sample Collection Date/Time: </td><td>03/07/ 9 10:15 AM</td></tr><tr>< td>Specimen Source:</td><td>V AGINAL</td></tr>< tr><td>Gardnerell a Vaginalis:</td><t d>>8.0 </td></tr><tr><td >Megasphaera Species:</td><td> Not Detected </td></tr><tr><td >Atopobium Vaginae:</td><td> Not Detected </td></tr><tr><td >Lactobacillus Species:</td><td> Not Detected </td></tr><tr><td >C. Tropicalis, DNA:</td><td>Not Detected </td></tr><tr><td >C. Glabrata, DNA:</td><td>Not Detected </td></tr><tr><td >C. Albicans, DNA:</td><td>Dete cted </td></tr><tr><td >T Vaginalis RNA,QL TMA:</td><td>Not Detected </td></tr><tr><td >BV Category:</td><td >SUPPORTIVE </td></tr><tr><td >C. Parapsilosis, DNA:</td><td>Not Detected </td></tr></tbody ></table></item> UNK Not Detected <item[facility] T Vaginalis Medical RNA,QL TMA Center </content>
<t able><tbody><tr>< td>Specimen Number:</td><td>[id number]</td></tr ><tr><td>Sample Collection Date/Time: </td><td> 9 10:15 AM</td></tr><tr>< td>Specimen Source:</td><td>V AGINAL</td></tr>< tr><td>C. Parapsilosis, DNA:</td><td>Not Detected </td></tr><tr><td >BV Category:</td><td >SUPPORTIVE </td></tr><tr><td >T Vaginalis RNA, TMA:</td><td>Not Detected </td></tr><tr><td >C. Albicans, DNA:</td><td>Dete cted </td></tr><tr><td >C. Glabrata, DNA:</td><td>Not Detected </td></tr><tr><td >C. Tropicalis, DNA:</td><td>Not Detected </td></tr><tr><td >Lactobacillus Species:</td><td> Not Detected </td></tr><tr><td >Atopobium Vaginae:</td><td> Not Detected </td></tr><tr><td >Megasphaera Species:</td><td> Not Detected </td></tr><tr><td >Gardnerella Vaginalis:</td><t d>>8.0 </td></tr></tbody ></table></item> UNK <item><[facility] [place] </content>
<t able><tbody><tr>< td>Specimen Number:</td><td>[id number]</td></tr ><tr><td>Sample Collection Date/Time: </td><td> 10:15 AM</td></tr><tr>< td>Specimen Source:</td><td>V AGINAL</td></tr>< tr><td>Gardnerell a Vaginalis:</td><t d>>8.0 </td></tr><tr><td >Megasphaera Species:</td><td> Not Detected </td></tr><tr><td >Atopobium Vaginae:</td><td> Not Detected </td></tr><tr><td >Lactobacillus Species:</td><td> Not Detected </td></tr><tr><td >C. Tropicalis, DNA:</td><td>Not Detected </td></tr><tr><td >C. Glabrata, DNA:</td><td>Not Detected </td></tr><tr><td >C. Albicans, DNA:</td><td>Dete cted </td></tr><tr><td >T Vaginalis RNA,QL TMA:</td><td>Not Detected </td></tr><tr><td >BV Category:</td><td >SUPPORTIVE </td></tr><tr><td >C. Parapsilosis, DNA:</td><td>Not Detected </td></tr></tbody ></table></item> UNK NOT SUPPORTIVE <item><content [facility] styleCode="Bold"> [facility] BV Category Medical </content>
<t Center able><tbody><tr>< td>Specimen Number:</td><td>[id number]</td></tr ><tr><td>Sample Collection Date/Time: </td><td> 9 10:15 AM</td></tr><tr>< td>Specimen Source:</td><td>V AGINAL</td></tr>< tr><td>Gardnerell a Vaginalis:</td><t d>>8.0 </td></tr><tr><td >Megasphaera Species:</td><td> Not Detected </td></tr><tr><td >Atopobium Vaginae:</td><td> Not Detected </td></tr><tr><td >Lactobacillus Species:</td><td> Not Detected </td></tr><tr><td >C. Tropicalis, DNA:</td><td>Not Detected </td></tr><tr><td >C. Glabrata, DNA:</td><td>Not Detected </td></tr><tr><td >C. Albicans, DNA:</td><td>Dete cted </td></tr><tr><td >T Vaginalis RNA,QL TMA:</td><td>Not Detected </td></tr><tr><td >BV Category:</td><td >SUPPORTIVE </td></tr><tr><td >C. Parapsilosis, DNA:</td><td>Not Detected </td></tr></tbody ></table></item> UNK Not Detected <item><content [facility] styleCode="Bold"> [place] C. Parapsilosis, [facility] </content>
<t able><tbody><tr>< td>Specimen Number:</td><td>[id number]</td></tr ><tr><td>Sample Collection Date/Time: </td><td> 9 10:15 AM</td></tr><tr>< td>Specimen Source:</td><td>V AGINAL</td></tr>< tr><td>C. Parapsilosis, DNA:</td><td>Not Detected </td></tr><tr><td >BV Category:</td><td >SUPPORTIVE </td></tr><tr><td >T Vaginalis RNA,QL TMA:</td><td>Not Detected </td></tr><tr><td >C. Albicans, DNA:</td><td>Dete cted </td></tr><tr><td >C. Glabrata, DNA:</td><td>Not Detected </td></tr><tr><td >C. Tropicalis, DNA:</td><td>Not Detected </td></tr><tr><td >Lactobacillus Species:</td><td> Not Detected </td></tr><tr><td >Atopobium Vaginae:</td><td> Not Detected </td></tr><tr><td >Megasphaera Species:</td><td> Not Detected </td></tr><tr><td >Gardnerella Vaginalis:</td><t d>>8.0 </td></tr></tbody ></table></item> UNK Not Detected <item><content Saint styleCode="Bold"> Diego Munoz, [facility] </content>
<t able><tbody><tr>< td>Specimen Number:</td><td>[id number]</td></tr ><tr><td>Sample Collection Date/Time: </td><td> 9 10:15 AM</td></tr><tr>< td>Specimen Source:</td><td>V AGINAL</td></tr>< tr><td>Gardnerell a Vaginalis:</td><t d>>8.0 </td></tr><tr><td >Megasphaera Species:</td><td> Not Detected </td></tr><tr><td >Atopobium Vaginae:</td><td> Not Detected </td></tr><tr><td >Lactobacillus Species:</td><td> Not Detected </td></tr><tr><td >C. Tropicalis, DNA:</td><td>Not Detected </td></tr><tr><td >C. Glabrata, DNA:</td><td>Not Detected </td></tr><tr><td >C. Albicans, DNA:</td><td>Dete cted </td></tr><tr><td >T Vaginalis RNA,QL TMA:</td><td>Not Detected </td></tr><tr><td >BV Category:</td><td >SUPPORTIVE </td></tr><tr><td >C. Parapsilosis, DNA:</td><td>Not Detected </td></tr></tbody ></table></item> ID Date Data Source [id number] 03/07/2019 09:23:52 AM EST NANCIRicha EN ([facility] [id number] [place]) Name Value Range Interpretation Description Data Sup porting Code Source(s) Document(s ) NEG Bilirubin NEXTGEN ([facility]) Urinalysis YELLOW Color NEXTGEN dipstick panel ([facility] Automated test Medical strip [place]) 1.[address] [place] NEXTGEN ([facility]) NEG Blood [facility] ([facility]) [facility] MODERATE Leukocytes [facility] ([facility]) NEG Nitrite NEXTGEN ([facility]) NEG Ketones [facility] ([facility]) 6.5 pH [facility] ([facility]) NEG Protein NEXTGEN ([facility]) NEG Glucose [facility] ([facility]) 0.2 Urobilinogen [facility] ([facility]) ID Date Data Source [id number] 12/30/2018 01:02:00 PM EDT [facility] 0 Name Value Range Interpretation Description Data Sup porting Code Source(s) Document(s ) Color of Urine YELLOW <content [facility] styleCode="Avis Joness d">Color, Medical Urine Center </content>YELL OW <content styleCode="Antonia lics"> (YELLOW )</content> UNK CLEAR <content [facility] styleCode="Avis Joness d">Urine Medical Clarity Center </content>LAZARA R <content styleCode="Antonia lics"> (CLEAR )</content> Glucose NEGATIVE <content Saint [Mass/volume] styleCode="Avis Cortez in Urine by d">Urine Medical Test strip Glucose Center </content>NEGA TIVE MG/DL<content styleCode="Antonia lics"> (NEGATIVE MG/DL)</conten t> Ketones NEGATIVE <content Saint [Mass/volume] styleCode="Avis Joness in Urine by d">Urine Medical Test strip Ketone Center </content>NEGA TIVE MG/DL<content styleCode="Antonia lics"> (NEGATIVE MG/DL)</conten t> UNK NEGATIVE <content Saint styleCode="Avis Joness d">Urine Medical Bilirubin Center </content>NEGA TIVE <content styleCode="Antonia lics"> (NEGATIVE )</content> Protein NEGATIVE <content Saint [Mass/volume] styleCode="Avis Cortez in Urine by d">Urine Medical Test strip Protein Center </content>NEGA TIVE MG/DL<content styleCode="Antonia lics"> (NEGATIVE MG/DL)</conten t> Specific 1.015-1.02 <content Saint gravity of 5 styleCode="Avis Cortez Urine by Test d">Urine Medical strip Specific Center [place] </content>1.01 5 <content styleCode="Antonia lics"> (1.015-1.025 )</content> Hemoglobin NEGATIVE <content Saint [Presence] in styleCode="Avis Cortez Urine by Test d">Urine Blood Medical strip </content>NEGA Center TIVE <content styleCode="Antonia lics"> (NEGATIVE )</content> pH of Urine by 4.5-8.0 <content Saint Test strip styleCode="Avis [place] d">Urine pH Medical </content>7.0 Center <content styleCode="Antonia lics"> (4.5-8.0 )</content> Leukocyte NEGATIVE <content Saint esterase styleCode="Avis Joness [Presence] in d">Urine Medical Urine by Test Leukocyte Center strip </content>NEGA TIVE <content styleCode="Antonia lics"> (NEGATIVE )</content> Nitrite NEGATIVE <content Saint [Presence] in styleCode="Avis Joness Urine by Test d">Urine Medical strip Nitrite Center </content>POSI TIVE <content styleCode="Antonia lics"> (NEGATIVE )</content> Urobilinogen 0.2-1.0 <content Saint [Units/volume] styleCode="Avis Joness in Urine by d">Urine Medical Test strip Urobilinogen Center </content>0.2 MG/DL<content styleCode="Antonia lics"> (0.2-1.0 MG/DL)</conten t> UNK 0-3 <content Saint styleCode="Avis [place] d">Urine Red Medical Blood Cell Center </content>0-3 HPF<content styleCode="Antonia lics"> (0-3 HPF)</content> UNK NEGATIVE <content Saint styleCode="Aivs Diego d">Urine Medical Bacteria Center </content>MANY HPF<content styleCode="Antonia lics"> (NEGATIVE HPF)</content> UNK <content Saint styleCode="Avis [place] d">Epithelial Medical Cell Center </content>5 - 10 LPF (Reference Range: not available)<br/ > UNK 0-3 <content Saint styleCode="Avis [place] d">Urine White Medical Blood Cell Center </content>0-3 HPF<content styleCode="Antonia lics"> (0-3 HPF)</content> ID Date Data Source Microbiology.[id number] 12/30/2018 01:02:00 PM EDT [facility] 400 Name Value Range Interpretation Code Description Data Awa rce(s) Supporting Document(s ) UNK <item><content [facility] styleCode="Bold"> Medical Cent er Culture Status </content>
<t able><tbody><tr>< td>Specimen Number:</td><td>[id number]</td></tr ><tr><td>Sample Collection Date/Time: </td><td> 9 1:02 PM</td></tr><tr>< td>Specimen Source:</td><td>U RINE BLADDER</td></tr> <tr><td>[place] Count Urine:</td><td>>1 00,000 CFU/ML </td></tr><tr><td >Preliminary 1:</td><td>LACTOS E CAST IRON DIPPER </td></tr><tr><td >Culture Status:</td><td>F inal </td></tr><tr><td >Culture Report:</td><td>C ulture in progress </td></tr><tr><td >Urine Culture:</td><td> Collection Plate Date: 12/30/2018 14:25 </td></tr><tr><td >Organism 1:</td><td>ESCHER ICHIA COLI </td></tr></tbody ></table>
<ta ble border="2"><tbody ><tr><td></td><td >1</td></tr><tr>< td>Comment</td><t d></td></tr><tr>< td>Result Value</td><td>ESC HERICHIA COLI </td></tr><tr><td >Result Status</td><td>Fi nal Result</td></tr>< tr><td>AMPICILLIN </td><td>>16 R</td></tr><tr><t d>AMPICILLIN SULBACTAM</td><td >16/8 I</td></tr><tr><t d>AZTREONAM</td>< td><=8 S</td></tr><tr><t d>CEFOTETAN</td>< td><= 16 S</td></tr><tr><t d>CEFTAZIDIME</td ><td><=1 S</td></tr><tr><t d>CEFUROXIME</td> <td><=4 S</td></tr><tr><t d>CIPROFLOXACIN</ td><td><= 1 S</td></tr><tr><t d>ERTAPENEM</td>< td><=1 S</td></tr><tr><t d>GENTAMICIN</td> <td><= 4 S</td></tr><tr><t d>IMIPENEM</td><t d><= 1 S</td></tr><tr><t d>LEVOFLOXACIN</t d><td><= 2 S</td></tr><tr><t d>MEROPENEM</td>< td><= 1 S</td></tr><tr><t d>NITROFURANTOIN< /td><td><= 32 S</td></tr><tr><t d>PIPERACILLIN/TA ZOBACTAM</td><td> <= 16 S</td></tr><tr><t d>TETRACYCLINE</t d><td>> 8 R</td></tr><tr><t d>TIGECYCLINE</td ><td><= 2 S</td></tr><tr><t d>TRIMETHOPRIM/GUZMAN LFAMETHOXAZOLE</t d><td>>2/38 R</td></tr></tbod y></table></item> UNK <item><content [facility] styleCode="Bold"> Medical Cent er Culture Report </content>
<t able><tbody><tr>< td>Specimen Number:</td><td>[id number]</td></tr ><tr><td>Sample Collection Date/Time: </td><td> 9 1:02 PM</td></tr><tr>< td>Specimen Source:</td><td>U RINE BLADDER</td></tr> <tr><td>Urine Culture:</td><td> Collection Plate Date: 12/30/2018 14:25 </td></tr><tr><td >Culture Status:</td><td>F inal </td></tr><tr><td >Culture Report:</td><td>C ulture in progress </td></tr><tr><td >[place] Count Urine:</td><td>>1 00,000 CFU/ML </td></tr><tr><td >Preliminary 1:</td><td>LACTOS E CAST IRON DIPPER </td></tr><tr><td >Organism 1:</td><td>ESCHER ICHIA COLI </td></tr></tbody ></table>
<ta ble border="2"><tbody ><tr><td></td><td >1</td></tr><tr>< td>Comment</td><t d></td></tr><tr>< td>Result Value</td><td>ESC HERICHIA COLI </td></tr><tr><td >Result Status</td><td>Fi nal Result</td></tr>< tr><td>AMPICILLIN </td><td>>16 R</td></tr><tr><t d>AMPICILLIN SULBACTAM</td><td >16/8 I</td></tr><tr><t d>AZTREONAM</td>< td><=8 S</td></tr><tr><t d>CEFOTETAN</td>< td><= 16 S</td></tr><tr><t d>CEFTAZIDIME</td ><td><=1 S</td></tr><tr><t d>CEFUROXIME</td> <td><=4 S</td></tr><tr><t d>CIPROFLOXACIN</ td><td><= 1 S</td></tr><tr><t d>ERTAPENEM</td>< td><=1 S</td></tr><tr><t d>GENTAMICIN</td> <td><= 4 S</td></tr><tr><t d>IMIPENEM</td><t d><= 1 S</td></tr><tr><t d>LEVOFLOXACIN</t d><td><= 2 S</td></tr><tr><t d>MEROPENEM</td>< td><= 1 S</td></tr><tr><t d>NITROFURANTOIN< /td><td><= 32 S</td></tr><tr><t d>PIPERACILLIN/TA ZOBACTAM</td><td> <= 16 S</td></tr><tr><t d>TETRACYCLINE</t d><td>> 8 R</td></tr><tr><t d>TIGECYCLINE</td ><td><= 2 S</td></tr><tr><t d>TRIMETHOPRIM/GUZMAN LFAMETHOXAZOLE</t d><td>>2/38 R</td></tr></tbod y></table></item> ID Date Data Source [id number] 12/30/2018 01:02:00 PM EDT [place] EN ([facility] [id number] [place]) Name Value Range Interpretation Code Description Data Supporting Source(s) Document(s ) 16/ Specimen in lab; AMPICILLIN NEXTGEN results pending SULBACTAM ([facility]) >16 Results entered -- AMPICILLIN NEXTGEN not verified ([facility]) <=8 Susceptible. AZTREONAM NEXTGEN Indicates for ([facility] [place]) <=4 Susceptible. CEFUROXIME NEXTGEN Indicates for ([facility] [place]) <=1 Susceptible. CEFTAZIDIME NEXTGEN Indicates for ([facility] only. [place]) <= 1 Susceptible. CIPROFLOXACIN NEXTGEN Indicates for ([facility] [place]) <= 1 Susceptible. MEROPENEM NEXTGEN Indicates for ([facility]) <= 1 Susceptible. IMIPENEM NEXTGEN Indicates for ([facility]) <= 2 Susceptible. LEVOFLOXACIN NEXTGEN Indicates for ([facility]) <= 4 Susceptible. GENTAMICIN NEXTGEN Indicates for ([facility]) <= 16 Susceptible. PIPERACILLIN/TAZOBA NEXTGEN Indicates for CTAM ([facility]) > 8 Results entered -- TETRACYCLINE NEXTGEN not verified ([facility]) <= 32 Susceptible. NITROFURANTOIN NEXTGEN Indicates for ([facility]) >2/38 Results entered -- TRIMETHOPRIM/SULFAM N EXTGEN not verified ETHOXAZOLE ([facility]) <=1 Susceptible. ERTAPENEM NEXTGEN Indicates for ([facility]) <= 2 Susceptible. TIGECYCLINE NEXTGEN Indicates for ([facility]) <= 16 Susceptible. CEFOTETAN NEXTGEN Indicates for ([facility]) ID Date Data Source [id number] 12/30/2018 01:02:00 PM EDT NEXTG EN ([facility] [id number] [place]) Name Value Range Interpretation Description Data Sup porting Code Source(s) Document(s ) ESCHERICHIA COLI ORGANISM ID NEXTGEN ([facility]) ID Date Data Source [id number] 12/30/2018 01:02:00 PM EDT NEXTG EN ([facility] [id number] [place]) Name Value Range Interpretation Description Data Sup porting Code Source(s) Document(s ) Final CULTURE STATUS NEXTGEN ([facility]) [id number] SPECIMEN NO NEXTGEN ([facility]) [facility] 12/30/2018 COLLECTION DT NEXTGEN 13:02 ([facility]) 12/30/2018 PLATE DT NEXTGEN 14:25 ([facility]) >100,000 COLONY COUNT NEXTGEN CFU/ML ([facility]) Culture in CULTURE REPORT NEXTGEN progress ([facility]) LACTOSE PRELIMINARY 1 NEXTGEN CAST IRON DIPPER ([facility]) ID Date Data Source [id number] 12/30/2018 01:02:00 PM EDT NEXTG EN ([facility] [id number] [place]) Name Value Range Interpretation Description Data Sup porting Code Source(s) Document(s ) [id number] SPECIMEN NO NEXTGEN ([facility]) [facility] 12/30/2018 COLLECTION DT NEXTGEN 13:02 ([facility]) URINE BLADDER [facility] 12/30/2018 PLATE DT NEXTGEN 14:25 ([facility]) Culture in CULTURE REPORT NEXTGEN progress ([facility]) [facility]ARY [facility]) >100,000 CFU/ML [facility] ID Date Data Source [id number] 12/30/2018 01:02:00 PM EDT NEXTG EN ([facility] [id number] [place]) Name Value Range Interpretation Description Data Sup porting Code Source(s) Document(s ) [id number] SPECIMEN NO NEXTGEN ([facility]) Preliminary CULTURE STATUS NEXTGEN ([facility]) URINE BLADDER [facility] 12/30/2018 COLLECTION DT NEXTGEN 13:02 ([facility]) 12/30/2018 PLATE DT NEXTGEN 14:25 ([facility]) Culture in CULTURE REPORT NEXTGEN progress ([facility]) ID Date Data Source [id number] 12/30/2018 01:02:00 PM EDT NEXTG EN ([facility] [id number] [place]) Name Value Range Interpretation Description Data Sup porting Code Source(s) Document(s ) YELLOW YELLOW U COLOR NEXTGEN ([facility]) CLEAR CLEAR U CLARITY NEXTGEN ([facility]) NEGATIVE NEGATIVE U GLUCOSE NEXTGEN ([facility]) NEGATIVE NEGATIVE U KETONE NEXTGEN ([facility]) NEGATIVE NEGATIVE U BILIRUBIN NEXTGEN ([facility]) 1.015 1.015-1.025 U SP.GRAVITY NEXTGEN ([facility]) 7.0 4.5-8.0 U PH NEXTGEN ([facility]) NEGATIVE NEGATIVE U BLOOD NEXTGEN ([facility]) NEGATIVE NEGATIVE U PROTEIN NEXTGEN ([facility]) POSITIVE NEGATIVE U NITRITE NEXTGEN ([facility]) 0.2 MG/DL 0.2-1.0 U UROBILINOGEN NEXTGEN ([facility]) 0-3 0-3 U WBC NEXTGEN ([facility]) 0-3 0-3 U RBC NEXTGEN ([facility]) NEGATIVE NEGATIVE U. LEUKOCYTE NEXTGEN ([facility]) MANY NEGATIVE U BACTERIA NEXTGEN ([facility]) 5 - 10 U EPITH NEXTGEN ([facility]) ID Date Data Source [id number] 12/30/2018 12:31:06 PM EDT NEXTG EN ([facility] [id number] [place]) Name Value Range Interpretation Description Data Sup porting Code Source(s) Document(s ) neg Bilirubin NEXTGEN ([facility]) neg Blood NEXTGEN ([facility]) Urinalysis yellow Color NEXTGEN dipstick panel ([facility] Automated test Medical strip [place]) 1.[address] [place] NEXTGEN ([facility]) clodu Clarity NEXTGEN ([facility]) neg Ketones NEXTGEN ([facility]) trace Leukocytes NEXTGEN ([facility]) small Nitrite NEXTGEN pink ([facility]) 7.0 pH NEXTGEN ([facility]) neg Glucose NEXTGEN ([facility]) neg Protein NEXTGEN ([facility]) neg [facility]ogen [facility] ID Date Data Source Liver 11/24/2018 01:04:00 PM EDT [facility] Profile.[id number] Name Value Range Interpretation Description Data Sup porting Code Source(s) Document(s ) Alanine 7-30 <content Saint aminotransferase styleCode="Bold"> Oliverio hs [Enzymatic Alanine Medical activity/volume] Aminotransferase Center in Serum or Plasma (ALT) </content>30 IU/L<content styleCode="Italic s"> (7-30 IU/L)</content> Alkaline 38-126 <content [facility] phosphatase styleCode="Bold"> Diego [Enzymatic Alkaline Medical activity/volume] Phosphatase (ALP) Cente r in Serum or Plasma </content>51 IU/L<content styleCode="Italic s"> (38-126 IU/L)</content> Aspartate 14-36 <content [facility] aminotransferase styleCode="Bold"> Oliverio hs [Enzymatic Aspartate Medical activity/volume] Aminotransferase Center in Serum or Plasma (AST) </content>29 IU/L<content styleCode="Italic s"> (14-36 IU/L)</content> Albumin 3.5-5.0 <content Saint [Mass/volume] in styleCode="Bold"> Oliverio hs Serum or Plasma Albumin Medical </content>4.2 Center G/DL<content styleCode="Italic s"> (3.5-5.0 G/DL)</content> Bilirubin.total 0.2-1.3 <content [facility] [Mass/volume] in styleCode="Bold"> Oliverio hs Serum or Plasma Bilirubin Total Medical </content>0.2 Center MG/DL<content styleCode="Italic s"> (0.2-1.3 MG/DL)</content> ID Date Data Source [id number] 11/24/2018 01:04:[address] [facility] Name Value Range Interpretation Description Data Sup porting Code Source(s) Document(s ) Triglyceride < 150 Above high normal <content Saint [Mass/volume] styleCode="Bold"> Diego in Serum or Triglycerides Medical Plasma </content>365 Center MG/DL H<content styleCode="Italic s"> (< 150 MG/DL)</content> Cholesterol -<200 <content Saint [Mass/volume] styleCode="Bold"> Diego in Serum or Cholesterol Medical Plasma </content>172 Center MG/DL<content styleCode="Italic s"> (-<200 MG/DL)</content> UNK > 60 Below low normal <content Saint styleCode="Bold"> [place] HDL- Cholesterol Medical </content>37 Center MG/DL L<content styleCode="Italic s"> (> 60 MG/DL)</content> UNK <content Saint styleCode="Bold"> [place] LDL-Cholesterol Medical </content> Center (Reference Range: not available)
<c ontent styleCode="xLocal PreformattedText" >Triglycerides are >250 mg/dl; therefore, the LDL calculation is invalid.
Chol esterol electrophoresis is recommended if medically appropriate.</con tent> ID Date Data Source [id number] 11/24/2018 01:04:00 PM EDT [facility] Name Value Range Interpretation Description Data Sup porting Code Source(s) Document(s ) Thyrotropin 0.465-4. <content Saint [Units/volume] 68 styleCode="Avis Diego in Serum or d">Thyroid Medical Plasma by Stimulating Center Detection Hormone limit <= 0.05 </content>1.92 mIU/L MIU/L<content styleCode="Antonia lics"> (0.465-4.68 MIU/L)</conten t> ID Date Data Source [id number].[id number] 11/24/2018 01:04:00 PM EDT [facility] nt [facility] 0400 Name Value Range Interpretation Description Data Sup porting Code Source(s) Document(s ) Leukocytes 4.4-11.0 <content Saint [#/volume] in styleCode="Bold [place] Blood by ">White Blood Medical Automated count Cell Count Center </content>7.33 KCUMM<content styleCode="Ital ics"> (4.4-11.0 KCUMM)</content > Erythrocytes 4.0-5.1 <content Saint [#/volume] in styleCode="Bold [place] Blood by ">Red Blood Medical Automated count Cell Count Center </content>4.00 MCUMM<content styleCode="Ital ics"> (4.0-5.1 MCUMM)</content > Erythrocyte mean 80.0-100 <content Saint corpuscular .0 styleCode="Bold Diego volume [Entitic ">Mean Medical volume] by Corpuscular Center Automated count Volume </content>91.5 FL<content styleCode="Ital ics"> (80.0-100.0 FL)</content> Hematocrit 36.0-46. <content Saint [Volume 0 styleCode="Bold Diego Fraction] of ">Hematocrit Medical Blood by </content>36.6 Center Automated count %<content styleCode="Ital ics"> (36.0-46.0 %)</content> Hemoglobin 12.3-16. <content Saint [Mass/volume] in 0 styleCode="Bold [place] Blood ">Hemoglobin Medical </content>12.5 Center G/DL<content styleCode="Ital ics"> (12.3-16.0 G/DL)</content> Erythrocyte mean 26.0-34. <content Saint corpuscular 0 styleCode="Bold Diego hemoglobin ">Mean Medical [Entitic mass] Corposcular Center by Automated Hemoglobin count </content>31.3 PG<content styleCode="Ital ics"> (26.0-34.0 PG)</content> Erythrocyte mean 32.0-37. <content Saint corpuscular 0 styleCode="Bold [place] hemoglobin ">Mean Corpus. Medical concentration Hgb Center [Mass/volume] by Concentration Automated count (MCHC) </content>34.2 G/DL<content styleCode="Ital ics"> (32.0-37.0 G/DL)</content> Erythrocyte 11.5-14. <content Saint distribution 5 styleCode="Bold Diego width [Ratio] by ">Red Cell Medical Automated count Distribution Center Width </content>12.5 %<content styleCode="Ital ics"> (11.5-14.5 %)</content> Platelet mean 8.0-11.0 Above high <content Saint volume [Entitic normal styleCode="Bold Diego volume] in Blood ">Mean Platelet Medical by Automated Volume Center count </content>12.7 FL H<content styleCode="Ital ics"> (8.0-11.0 FL)</content> UNK 1.6-7.3 <content Saint styleCode="Bold Diego ">Neutrophil Medical Count Center </content>4.24 KCUMM<content styleCode="Ital ics"> (1.6-7.3 KCUMM)</content > Platelets 130-400 <content Saint [#/volume] in styleCode="Bold [place] Blood by ">Platelet Medical Automated count Count Center </content>233 KCUMM<content styleCode="Ital ics"> (130-400 KCUMM)</content > Neutrophils 36-66 <content Saint [#/volume] in styleCode="Bold [place] Blood by ">Neutrophil Medical Automated count </content>57.8 Center %<content styleCode="Ital ics"> (36-66 %)</content> UNK 1.0-4.8 <content Saint styleCode="Bold Diego ">Lymphocyte Medical Count Center </content>2.55 KCUMM<content styleCode="Ital ics"> (1.0-4.8 KCUMM)</content > Lymphocytes 24.0-44. <content Saint [#/volume] in 0 styleCode="Bold [place] Blood by ">Lymphocyte Medical Automated count </content>34.8 Center %<content styleCode="Ital ics"> (24.0-44.0 %)</content> Monocytes 3.0-10.0 <content Saint [#/volume] in styleCode="Bold [place] Blood by ">Monocyte Medical Automated count </content>4.8 Center %<content styleCode="Ital ics"> (3.0-10.0 %)</content> UNK 0.2-0.9 <content Saint styleCode="Bold Diego ">Monocyte Medical Count Center </content>0.35 KCUMM<content styleCode="Ital ics"> (0.2-0.9 KCUMM)</content > Eosinophils 0-5.0 <content Saint [#/volume] in styleCode="Bold [place] Blood by ">Eosinophil Medical Automated count </content>1.6 Center %<content styleCode="Ital ics"> (0-5.0 %)</content> UNK 0.0-0.6 <content Saint styleCode="Bold Diego ">Eosinophil Medical Count Center </content>0.12 KCUMM<content styleCode="Ital ics"> (0.0-0.6 KCUMM)</content > Basophils 0.0-1.0 <content Saint [#/volume] in styleCode="Bold [place] Blood by ">Basophil Medical Automated count </content>0.7 Center %<content styleCode="Ital ics"> (0.0-1.0 %)</content> UNK 0.0-0.3 <content Saint styleCode="Bold [place] ">Basophil Medical Count Center </content>0.05 KCUMM<content styleCode="Ital ics"> (0.0-0.3 KCUMM)</content > UNK 0 <content Saint styleCode="Bold Diego ">Nucleated Red Medical Blood Cell Center </content>0.0 /100<content styleCode="Ital ics"> (0 /100)</content> UNK < 1 <content Saint styleCode="Bold Diego ">Immature Medical Granulocyte Center Ratio </content>0.3 %<content styleCode="Ital ics"> (< 1 %)</content> UNK 0-0.1 <content Saint styleCode="Bold [place] ">Immature Medical Granulocyte Center Count </content>0.02 KCUMM<content styleCode="Ital ics"> (0-0.1 KCUMM)</content > UNK 0.0 <content Saint styleCode="Bold Diego ">Nucleated Red Medical Blood Cell Center Count </content>0.00 KCUMM<content styleCode="Ital ics"> (0.0 KCUMM)</content > ID Date Data Source GFR([id number]).[id number] 11/24/2018 01:04:00 PM EDT [facility] 0-0400 Name Value Range Interpretation Code Description Data Awa rce(s) Supporting Document(s ) UNK > 60 <content [facility] styleCode="Bold"> Medical Cent er EGFR </content>146 GFR<content styleCode="Italic s"> (> 60 GFR)</content> ID Date Data Source [id number] 11/24/2018 01:04:00 PM EDT [facility] -0400 Name Value Range Interpretation Description Data Sup porting Code Source(s) Document(s ) UNK >= 1.0 <content [facility] styleCode="Bold Medical ">AG Ratio Center </content>1.4 <content styleCode="Ital ics"> (>= 1.0 )</content> UNK 4.2-5.8 <content [facility] styleCode="Bold Medical ">Hemoglobin Center A1C </content>5.6 %<content styleCode="Ital ics"> (4.2-5.8 %)</content> UNK 2.3-3.5 <content [facility] styleCode="Bold Medical ">Globulin Center </content>3.0 G/DL<content styleCode="Ital ics"> (2.3-3.5 G/DL)</content> Protein 6.3-8.2 <content [facility] [Mass/volum styleCode="Bold Medical e] in Serum ">Total Protein Center or Plasma </content>7.2 G/DL<content styleCode="Ital ics"> (6.3-8.2 G/DL)</content> ID Date Data Source [id number] 11/24/2018 01:04:00 PM EDT [facility] Name Value Range Interpretation Description Data Sup porting Code Source(s) Document(s ) Sodium 137-145 <content [facility] [Moles/volume] in styleCode="Bold"> Marcell phs Serum or Plasma Sodium Medical </content>142 Center MEQ/L<content styleCode="Italic s"> (137-145 MEQ/L)</content> Carbon dioxide, 22-30 <content Saint total styleCode="Bold"> Diego [Moles/volume] in Carbon Dioxide Medical Serum or Plasma </content>26 Center MEQ/L<content styleCode="Italic s"> (22-30 MEQ/L)</content> Chloride 98-107 <content Saint [Moles/volume] in styleCode="Bold"> Marcell [facility] Serum or Plasma Chloride Medical </content>104 Center MEQ/L<content styleCode="Italic s"> (98-107 MEQ/L)</content> Potassium 3.5-5.3 <content [facility] [Moles/volume] in styleCode="Bold"> Marcell [facility] Serum or Plasma Potassium Medical </content>4.1 Center MEQ/L<content styleCode="Italic s"> (3.5-5.3 MEQ/L)</content> Creatinine 0.5-1.3 <content [facility] [Mass/volume] in styleCode="Bold"> Oliverio hs Serum or Plasma Creatinine Medical </content>0.5 Center MG/DL<content styleCode="Italic s"> (0.5-1.3 MG/DL)</content> Glucose 74-106 <content [facility] [Mass/volume] in styleCode="Bold"> Oliverio hs Serum or Plasma Glucose Medical </content>91 Center MG/DL<content styleCode="Italic s"> (74-106 MG/DL)</content> UNK 7-17 <content Saint styleCode="Bold"> Diego BUN </content>11 Medical MG/DL<content Center styleCode="Italic s"> (7-17 MG/DL)</content> UNK > 60 <content Saint styleCode="Bold"> Diego EGFR Medical </content>146 Center GFR<content styleCode="Italic s"> (> 60 GFR)</content> Calcium 8.4-10. <content [facility] [Mass/volume] in 2 styleCode="Bold"> Oliverio hs Serum or Plasma Calcium Medical </content>9.4 Center MG/DL<content styleCode="Italic s"> (8.4-10.2 MG/DL)</content> Aspartate 14-36 <content [facility] aminotransferase styleCode="Bold"> Oliverio hs [Enzymatic Aspartate Medical activity/volume] Aminotransferase Center in Serum or Plasma (AST) </content>29 IU/L<content styleCode="Italic s"> (14-36 IU/L)</content> Bilirubin.total 0.2-1.3 <content [facility] [Mass/volume] in styleCode="Bold"> Oliverio hs Serum or Plasma Bilirubin Total Medical </content>0.2 Center MG/DL<content styleCode="Italic s"> (0.2-1.3 MG/DL)</content> Albumin 3.5-5.0 <content [facility] [Mass/volume] in styleCode="Bold"> Oliverio hs Serum or Plasma Albumin Medical </content>4.2 Center G/DL<content styleCode="Italic s"> (3.5-5.0 G/DL)</content> Alkaline 38-126 <content [facility] phosphatase styleCode="Bold"> Diego [Enzymatic Alkaline Medical activity/volume] Phosphatase (ALP) Cente r in Serum or Plasma </content>51 IU/L<content styleCode="Italic s"> (38-126 IU/L)</content> Alanine 7-30 <content [facility] aminotransferase styleCode="Bold"> Oliverio hs [Enzymatic Alanine Medical activity/volume] Aminotransferase Center in Serum or Plasma (ALT) </content>30 IU/L<content styleCode="Italic s"> (7-30 IU/L)</content> Procedure Social History Code Duration Value Status Description Data Source(s ) Caffeine Use 10/18/2019 completed [facility] (Jean nt Details 12:00:00 AM EDT Diego Randle [facility]) 10/18/2019 Current completed Current NEXTGEN ([facility] 12:00:00 AM EDT non-smoker non-smoker [facility]) Smoking 10/18/2019 Unknown if completed Unknown if ever NEXTGEN ( [facility] 12:00:00 AM EDT ever smoked smoked [facility]) Smoking Unknown if completed Unknown if ever [facility] ever smoked smoked [facility] r Alcohol Use completed NEXTGEN ([facility]) Vital Signs ID Date Data Source UNK Name Value Range Interpretation Code Description Data Source(s) Oxygen saturation 100 % 100 % NEXTGEN ([facility] in Arterial blood [facility] by Pulse oximetry [place]) Body mass index 29.14 kg/m2 Overweight 29.14 kg/m2 [facility] ([facility] (BMI) [Ratio] [facility]) Respiratory rate 20 /min 20 /min [facility] ([facility]) Body temperature 36.33 Judy 36.33 Judy [facility] ([facility]) Heart rate 73 /min 73 /min [facility] ([facility]) Diastolic blood 57 mm[Hg] 57 mm[Hg] [facility] ( [facility]) Systolic blood 95 mm[Hg] 95 mm[Hg] [facility]) Body weight 67.676 kg 67.676 kg [facility] ([facility]) Body height 152.40 cm 152.40 cm [facility] ([facility]) Oxygen saturation 98 % 98 % NEXTGEN ([facility] in Arterial [facility] by Pulse oximetry Center) Body mass index 28.12 kg/m2 Overweight 28.12 kg/m2 [facility] ([facility] (BMI) [Ratio] [facility]) Respiratory rate 18 /min 18 /min [facility]) Body temperature 36.83 Judy 36.83 Judy [facility] ([facility]) Heart rate 76 /min 76 /min [facility] ([facility]) Diastolic blood 57 mm[Hg] 57 mm[Hg] [facility] ( [facility]) Systolic blood 104 mm[Hg] 104 mm[Hg] [facility] (S aint pressure [facility]) Body weight 65.317 kg 65.317 kg [facility]) Body height 152.40 cm 152.40 cm [facility] ([facility]) Heart rate 75 /min 75 /min [facility] ([facility]) Diastolic blood 48 mm[Hg] 48 mm[Hg] [facility] ( [facility]) Systolic blood 101 mm[Hg] 101 mm[Hg] [facility] ([facility] pressure [facility]) Oxygen saturation 97 % 97 % [facility]EXT[facility] ([facility] in Arterial blood [facility] by Pulse oximetry Center) Body mass index 28.24 kg/m2 Overweight 28.24 kg/m2 [facility] ([facility] (BMI) [Ratio] [facility]) Respiratory rate 20 /min 20 /min [facility] ([facility]) Body temperature 36.39 Judy 36.39 Judy [facility] ([facility]) Heart rate 78 /min 78 /min [facility] ([facility]) Diastolic blood 57 mm[Hg] 57 mm[Hg] [facility]EXT[facility] ( [facility] pressure [facility]) Systolic blood 104 mm[Hg] 104 mm[Hg] [facility] ([facility]) Body weight 65.589 kg 65.589 kg [facility] ([facility]) Body height 152.40 cm 152.40 cm [facility] ([facility]) Diastolic blood 56 mm[Hg] 56 mm[Hg] [facility] ( [facility]) Systolic blood 100 mm[Hg] 100 mm[Hg] [facility] ([facility] pressure [facility]) Body surface area 1.67 m2 1.67 m2 [facility] ([facility] Derived from [facility]) Body mass index 28.20 kg/m2 Overweight 28.20 kg/m2 [facility] ([facility] (BMI) [Ratio] [facility]) Respiratory rate 16 /min 16 /min [facility] ([facility]) Body temperature 37.06 Judy 37.06 Judy [facility] ([facility]) Heart rate 71 /min 71 /min [facility] ([facility]) Diastolic blood 55 mm[Hg] 55 mm[Hg] [facility] ( [facility]) Systolic blood 93 mm[Hg] 93 mm[Hg] NEXTGEN (S nt pressure [facility]) Body weight 65.499 kg 65.499 kg [facility] ([facility]) Body height 152.40 cm 152.40 cm [facility]) Oxygen saturation 100 % 100 % [facility] ([facility] in Arterial blood [facility] by Pulse oximetry Center) Body mass index 28.67 kg/m2 Overweight 28.67 kg/m2 [facility]EXT[facility] ([facility] (BMI) [Ratio] [facility]) Respiratory rate 20 /min 20 /min [facility] ([facility]) Body temperature 36.72 Judy 36.72 Judy [facility] ([facility]) Heart rate 71 /min 71 /min [facility] ([facility]) Diastolic blood 63 mm[Hg] 63 mm[Hg] NEXT[facility] ( [facility]) Systolic blood 103 mm[Hg] 103 mm[Hg] NEXTGEN (S nt [facility]) Body weight 66.587 kg 66.587 kg [facility] ([facility]) Body height 152.40 cm 152.40 cm [facility] ([facility]) Oxygen saturation 97 % 97 % [facility] ([facility] in Arterial blood [facility] by Pulse oximetry Center) Body mass index 28.12 kg/m2 Overweight 28.12 kg/m2 [facility] ([facility] (BMI) [Ratio] [facility]) Respiratory rate 20 /min 20 /min [facility] ([facility]) Body temperature 36.78 Judy 36.78 Judy [facility] ([facility]) Heart rate 73 /min 73 /min [facility] ([facility]) Diastolic blood 63 mm[Hg] 63 mm[Hg] [facility] ( [facility]) Systolic blood 107 mm[Hg] 107 mm[Hg] NEXTGEN (S aint pressure [facility]) Body weight 65.317 kg 65.317 kg [facility] ([facility]) Body height 152.40 cm 152.40 cm [facility] ([facility]) Oxygen saturation 98 % 98 % NEXT[facility] ([facility] in Arterial [facility] by Pulse oximetry Center) Body mass index 28.71 kg/m2 Overweight 28.71 kg/m2 [facility] ([facility] (BMI) [Ratio] [facility]) Respiratory rate 20 /min 20 /min [facility] ([facility]) Body temperature 36.83 Judy 36.83 Judy [facility] ([facility]) Heart rate 70 /min 70 /min [facility] ([facility]) Diastolic blood 58 mm[Hg] 58 mm[Hg] [facility]EXT[facility] ( [facility]) Systolic blood 104 mm[Hg] 104 mm[Hg] [facility] (S [facility]) Body weight 66.678 kg 66.678 kg [facility] ([facility]) Body height 152.40 cm 152.40 cm [facility] ([facility]) Oxygen saturation 98 % 98 % NEXT[facility] ([facility] in Arterial blood [facility] by Pulse oximetry Center) Body mass index 28.44 kg/m2 Overweight 28.44 kg/m2 [facility] ([facility] (BMI) [Ratio] [facility]) Respiratory rate 18 /min 18 /min [facility] ([facility]) Body temperature 36.78 Judy 36.78 Judy [facility] ([facility]) Heart rate 64 /min 64 /min [facility] ([facility]) Diastolic blood 52 mm[Hg] 52 mm[Hg] [facility] ( [facility]) Systolic blood 93 mm[Hg] 93 mm[Hg] NEXT[facility] (S nt [facility]) Body weight 66.043 kg 66.043 kg [facility] ([facility]) Body height 152.40 cm 152.40 cm [facility] ([facility]) Body mass index 28.07 kg/m2 Overweight 28.07 kg/m2 [facility] ([facility] (BMI) [Ratio] [facility]) Respiratory rate 20 /min 20 /min [facility] ([facility]) Body temperature 36.20 Judy 36.20 Judy [facility] ([facility]) Heart rate 73 /min 73 /min [facility] ([facility]) Diastolic blood 70 mm[Hg] 70 mm[Hg] NEXT[facility] ( [facility]) Systolic blood 108 mm[Hg] 108 mm[Hg] [facility] ([facility]) Body weight 63.049 kg 63.049 kg [facility] ([facility]) Body height 149.86 cm 149.86 cm [facility] ([facility]) Body mass index 28.11 kg/m2 Overweight 28.11 kg/m2 [facility] ([facility] (BMI) [Ratio] [facility]) Respiratory rate 20 /min 20 /min [facility] ([facility]) Body temperature 36.70 Judy 36.70 Judy [facility] ([facility]) Heart rate 81 /min 81 /min [facility] ([facility]) Diastolic blood 69 mm[Hg] 69 mm[Hg] [facility] ( [facility]) Systolic blood 108 mm[Hg] 108 mm[Hg] [facility] ([facility]) Body weight 63.140 kg 63.140 kg [facility] ([facility]) Body height 149.86 cm 149.86 cm [facility] ([facility]) Patient Treatment Plan of Care Planned Activity Planned Date Details Description Data Source (s) Diphenhydramine 10/18/2019 NEXTGEN (Jean nt Hydrochloride 25 MG Oral 12:00:00 AM [facility] Capsule [Benadryl] [place]) Ibuprofen 400 MG Oral 10/18/2019 NEXTGE N ([facility] Tablet 12:00:00 AM [facility]) Sulfamethoxazole 800 MG / 10/18/2019 NE XTGEN ([facility] Trimethoprim 160 MG Oral 12:00:00 AM [facility] Tablet [Bactrim] [place]) carbamide peroxide 65 MG/ML 08/10/2019 NEXTGEN ([facility] Otic Solution [Debrox] 12:00:00 AM [facility]) terbinafine 250 MG Oral 06/09/2019 NEXT GEN ([facility] Tablet 12:00:00 AM [facility]) Metronidazole 0.0075 MG/MG 06/09/2019 N EXTGEN ([facility] Vaginal Gel [MetroGel] 12:00:00 AM [facility]) Fluconazole 150 MG Oral 06/09/2019 NEXT GEN ([facility] Tablet 12:00:00 AM [facility]) terconazole 80 MG Vaginal 03/07/2019 NE XTGEN ([facility] Suppository 12:00:00 AM [facility]) NITROFURANTOIN, 12/30/2018 NEXTGEN (Jean nt MACROCRYSTALS 50 MG Oral 12:00:00 AM [facility]) terbinafine 250 MG Oral 12/01/2018 NEXT GEN ([facility] Tablet 12:00:00 AM [facility]) 28 mg iron-800 mcg 05/04/2017 NEXTGEN ([facility] tablet 12:00:00 AM [facility]) Fluconazole 150 MG Oral 12/21/2016 NEXT GEN ([facility] Tablet 12:00:00 AM [facility]) Ofloxacin 3 MG/ML Otic 12/11/2015 NEXTG EN ([facility] Solution 12:00:00 AM [facility]) Amoxicillin 500 MG Oral 12/11/2015 NEXT GEN ([facility] Capsule 12:00:00 AM [facility]) Amoxicillin 875 MG Oral 05/08/2015 NEXT GEN ([facility] Tablet 12:00:00 AM [facility]) Ibuprofen 400 MG Oral 05/08/2015 NEXTGE N ([facility] Tablet 12:00:00 AM [facility]) Amoxicillin 875 MG Oral 05/08/2015 NEXT GEN ([facility] Tablet 12:00:00 AM [facility]) Clomiphene Citrate 50 MG 01/01/2015 NEX TGEN ([facility] Oral Tablet 12:00:00 AM [facility]) Metronidazole 7.5 MG/ML 01/01/2015 NEXT GEN ([facility] Topical Cream 12:00:00 AM [facility]) Metronidazole 7.5 MG/ML 12/26/2014 NEXT GEN ([facility] Topical Cream 12:00:00 AM [facility]) Clomiphene Citrate 50 MG 12/26/2014 NEX TGEN ([facility] Oral Tablet 12:00:00 AM [facility]) Pepcid 20 mg tablet 11/12/2014 NEXTGEN ([facility] 12:00:00 AM [facility]) Simethicone 80 MG Chewable 10/24/2014 N EXTGEN ([facility] Tablet 12:00:00 AM [facility]) Fluconazole 150 MG Oral 06/04/2014 NEXT GEN ([facility] Tablet 12:00:00 AM [facility]) NITROFURANTOIN, 06/04/2014 NEXTGEN (Jean nt MACROCRYSTALS 100 MG Oral 12:00:00 AM [facility]) POLYETHYLENE GLYCOL 3350 06/04/2014 NEX TGEN ([facility] 142 MG/ML Oral Solution 12:00:00 AM [facility] [[facility]] [place]) Metronidazole 500 MG Oral 02/12/2014 NE XTGEN ([facility] Tablet 12:00:00 AM [facility]) POLYETHYLENE GLYCOL 3350 02/01/2014 NEX TGEN (Saint 142 MG/ML Oral Solution 12:00:[address] [facility] [[facility]] [place]) Fluconazole 150 MG Oral 11/20/2013 NEXT GEN ([facility] Tablet 12:00:00 AM [facility])
--- NOTE | 2019-12-28 12:34 | PDOC ---
History of Present Illness - General Chief Complaint: Cold Symptoms Stated Complaint: COLD SYMPTOMS Time Seen by Provider: 12/28/19 11:32 History Source: Patient Exam Limitations: Clinical Condition - History of Present Illness Initial Comments: 12/28/19 12:30 Patient with no significant past medical history present with complaint of 3-day history of runny nose, nasal congestion and intermittent dry cough. Denies fever, chills, abdominal pain, nausea, vomiting, shortness of breath, chest pain, headache, dizziness. Denies any other symptoms. Multiple family member at home sick with cold symptoms as well. Denies recent travel. Patient has not taken to for symptoms Is this a multiple visit Asthma Patient?: No Timing/Duration: other (3 days) Past History - Medical History Allergies/Adverse Reactions: Allergies Allergy/AdvReac Type Severity Reaction Status Date / Time No Known Allergies Allergy Verified 12/28/19 11:21 Home Medications: Ambulatory Orders Benzonatate [Tessalon Pearls -] 100 mg PO Q8H PRN #20 capsule 12/28/19 Ipratropium Hiller 2 spray NS BID PRN #1 spray 12/28/19 Montelukast Na [Singulair -] 10 mg PO DAILY #10 tablet 12/28/19 Asthma: No Cancer: No Cardiac Disorders: No COPD: No Diabetes: No HTN: No Seizures: No Thyroid Disease: No - Reproductive History Is Patient Now?: No - Immunization History Immunization Up to Date: Yes - Psycho-Social/Smoking History Smoking History: Never smoked Have you smoked in the past 12 months: No - Substance Abuse Hx (Audit-C & DAST Scrn) How often the patient has a drink containing alcohol: Never Score: In Men: 4 or > Positive; In Women: 3 or > Positive: 0 Screen Result (Pos requires Nsg. Audit-10AR): Negative In the last yr the pt used illegal drug/Rx for NonMed reason: No Score: Yes response is considered Positive: 0 Screen Result (Positive result requires Nsg. DAST-10): Negative Review of Systems - Review of Systems Able to Perform ROS?: Yes Is the patient limited Guamanian proficient: No Constitutional: No: Chills, Fever, Malaise HEENTM: Yes: Symptoms Reported, See HPI, Nose Congestion. No: Eye Pain, Blurred Vision, Tearing, Recent change in vision, Double Vision, Cataracts, Ear Pain, Ocular Prothesis, Ear Discharge, Nose Pain, Tinnitus, Nose Bleeding, Hearing Loss, Throat Pain, Throat Swelling, Mouth Pain, Dental Problems, Difficulty Swallowing, Mouth Swelling, Other Respiratory: Yes: Symptoms reported, See HPI, Cough. No: Orthopnea, Shortness of Breath, SOB with Exertion, SOB at Rest, Stridor, Wheezing, Productive cough, Hemoptysis, Other Cardiac (ROS): No: Symptoms Reported, See HPI, Chest Pain, Edema, Irregular Heart Rate, Lightheadedness, Palpitations, Syncope, Chest Tightness, Other ABD/GI: No: Symptoms Reported, Nausea, Vomiting, Abdominal cramping Musculoskeletal: No: Symptoms Reported Integumentary: No: Symptoms Reported, Rash All Other Systems: Reviewed and Negative *Physical Exam - Vital Signs Last Vital Signs Temp Pulse Resp BP Pulse Ox 98.2 F 73 18 119/51 L 100 12/28/19 11:22 12/28/19 11:22 12/28/19 11:22 12/28/19 11:22 12/28/19 11:22 - Physical Exam 12/28/19 12:31 GENERAL: Well developed, well nourished. Awake and alert. No acute distress. HEENT: Normocephalic, atraumatic. PERRLA, EOMI. No conjunctival pallor. Sclera are non-icteric. Moist mucous membranes. Oropharynx is clear. NECK: Supple. Full ROM. CARDIOVASCULAR: Regular rate and rhythm. No murmurs, rubs, or gallops. PULMONARY: No evidence of respiratory distress. Lungs clear to auscultation bilaterally. No wheezing, rales or rhonchi. ABDOMINAL: Soft. Non-tender. Non-distended. No rebound or guarding. No organomegaly. Normoactive bowel sounds. MUSCULOSKELETAL Normal range of motion at all joints. SKIN: Warm and dry. Normal capillary refill. No rashes. No cyanosis. NEUROLOGICAL: Alert, awake, appropriate. Gait is normal without ataxia. PSYCHIATRIC: Cooperative. Good eye contact. Appropriate mood General Appearance: Yes: Nourished, Appropriately Dressed. No: Apparent Distress Medical Decision Making - Medical Decision Making 12/28/19 12:30 Patient with no significant past medical history present with complaint of 3-day history of runny nose, nasal congestion and intermittent dry cough. Denies fever, chills, abdominal pain, nausea, vomiting, shortness of breath, chest pain, headache, dizziness. Denies any other symptoms. Multiple family member at home sick with cold symptoms as well. Denies recent travel. Patient has not taken to for symptoms Clinical exam unremarkable auscultation bilateral. Patient afebrile. Patient in no acute distress. Normal cardio exam. Patient symptoms likely viral URI and stable for discharge on Tessalon Perles as needed for cough and Atrovent nasal spray for nasal congestion with antihistamine and was advised to increase fluid intake with PCP follow-up Discharge - Discharge Information Problems reviewed: Yes Clinical Impression/Diagnosis: Upper respiratory infection with cough and congestion Condition: Stable Disposition: HOME - Admission No - Additional Discharge Information Prescriptions: Ipratropium Hiller 2 spray NS BID PRN #1 spray PRN Reason: nasal congestion Montelukast Na [Singulair -] 10 mg PO DAILY #10 tablet Benzonatate [Tessalon Pearls -] 100 mg PO Q8H PRN #20 capsule PRN Reason: Cough - Follow up/Referral - Patient Discharge Instructions Patient Printed Discharge Instructions: DI for Viral Upper Respiratory Infection -- Adult Additional Instructions: Your symptoms likely caused by viral infection. Take prescribed indications pre scribed for cough and congestion. Increase fluid intake. Follow-up with your primary care - Post Discharge Activity
== END 2019-12-28 12:57 | disposition home or self-care (01) ==
LOC: JERFT 10:57
DX: J06.9 Acute upper respiratory infection, unspecified (principal)
CPT/HCPCS: 99282-25

== ENCOUNTER 2020-04-23 12:26 | Emergency (ER) | payer OTHER ==
[2020-04-23 12:50] VITALS: BP 95/52; PULSE 75; TEMP 97.4; BMI 28.3
== END 2020-04-23 14:06 | disposition home or self-care (01) ==
LOC: JERFT 12:26
DX: K02.9 Dental caries, unspecified (principal)
CPT/HCPCS: 99282-25

== ENCOUNTER 2020-07-13 13:44 | Emergency (ER) | payer OTHER ==
[2020-07-13 14:06] VITALS: BP 102/62; PULSE 89; TEMP 98.8; BMI 25.4
== END 2020-07-13 14:45 | disposition home or self-care (01) ==
LOC: JER 13:44 → JERFT 13:44
DX: R50.9 Fever, unspecified (principal); R53.83 Other fatigue; Z11.52 Encounter for screening for COVID-19
CPT/HCPCS: 99283-25; C9803; U0003; U0005

== ENCOUNTER 2021-06-02 22:14 | Emergency (ER) | payer OTHER ==
[2021-06-02 22:23] VITALS: BP 99/64; PULSE 90; TEMP 97.8; BMI 28.5
[2021-06-03] MEDS ORDERED: ACETAMINOPHEN 500 MG TABLET (FP) PO ONE (00:13)
[2021-06-03] MEDS ORDERED: ACETAMINOPHEN 500 MG TABLET (FP) ONE (00:16)
[2021-06-04 17:06] LABS: SARS-CoV-2 NAA Not Detected (Not Detected)
== END 2021-06-03 01:46 | disposition home or self-care (01) ==
LOC: JER 22:14
DX: R51.9 Headache, unspecified (principal); M79.10 Myalgia, unspecified site; R53.81 Other malaise
CPT/HCPCS: 99283-25; C9803; U0003; U0005

== ENCOUNTER 2021-06-06 12:06 | Emergency (ER) | payer OTHER ==
[2021-06-06 12:59] VITALS: BP 110/68; PULSE 89; TEMP 98.9; BMI 28.3
[2021-06-06] MEDS ORDERED: SODIUM CHLORIDE 1,000 ML IV STA (13:20)
== END 2021-06-06 14:16 | disposition home or self-care (01) ==
LOC: JER 12:06
DX: K52.9 Noninfective gastroenteritis and colitis, unspecified (principal)
CPT/HCPCS: 99283-25

== ENCOUNTER 2021-11-10 04:50 | Emergency (ER) | payer OTHER ==
[2021-11-10 05:25] VITALS: RESP 16; BMI 30.2
[2021-11-10] MEDS ORDERED: ACETAMINOPHEN 325 MG TABLET (FP) PO ONE (05:53)
[2021-11-10] MEDS ORDERED: AMOX TR/POT CLAV 875MG/125MG TABLETS (FP) PO ONE (06:02)
[2021-11-10] MEDS ORDERED: ACETAMINOPHEN 325 MG TABLET (FP) ONE (06:33)
[2021-11-10] MEDS ORDERED: AMOX TR/POT CLAV 875MG/125MG TABLETS (FP) ONE (06:33)
[2021-11-10] MEDS ORDERED: GENTAMICIN SULFATE 0.3% OPHTHALMIC (EYE DROPS) 5ML BOTTLE OU ONE (07:00)
[2021-11-10] MEDS ORDERED: ERYTHROMYCIN 0.5% OPHTHALMIC OINTMENT 3.5 GM TUBE ONE (07:23)
[2021-11-10] MEDS ORDERED: ERYTHROMYCIN 0.5% OPHTHALMIC OINTMENT 3.5 GM TUBE OU ONE (07:23)
[2021-11-10 07:27] LABS: THROAT:GRP A STREP NOT DETECTED (NOTDETECTED)
[2021-11-10 09:50] VITALS: BP 124/82; PULSE 68; TEMP 98
== END 2021-11-10 09:50 | disposition short-term general hospital (02) ==
LOC: JER 04:50
DX: H10.9 Unspecified conjunctivitis (principal); H71.93 Unspecified cholesteatoma, bilateral; H66.004 Acute suppurative otitis media without spontaneous rupture of ear drum, recurrent, right ear
CPT/HCPCS: 0241U-QW; 70450-TC; 70486-TC; 71046-TC-FY; 87651; 99285-25

== ENCOUNTER 2021-11-14 22:23 | Emergency (ER) | payer OTHER ==
[2021-11-14 22:41] VITALS: RESP 18; TEMP 98.6; BMI 28.3
[2021-11-14] MEDS ORDERED: LACTATED RINGERS SOLUTION 1000 ML INFUS.BAG IV ONE (23:43)
[2021-11-14] MEDS ORDERED: ACETAMINOPHEN 1000 MG/100 ML BAG IVPB ONE (23:43)
[2021-11-14] MEDS ORDERED: ACETAMINOPHEN INJECTION 100 ML IVPB ONE (23:49)
[2021-11-15 01:04] LABS: BASO % 0.6 % (0-2.0); EOS % 2.1 % (0-4.5); HEMATOCRIT 33.1 % (32.4-45.2); HEMOGLOBIN 11.7 GM/dL (10.7-15.3); LYMPH % 26.9 % (8-40); MCH 31.9 pg (25.7-33.7); MCHC 35.4 g/dl (32.0-36.0); MEAN CELL VOLUME 90.2 fl (80-96); MEAN PLT VOLUME 8.5 fl (7.5-11.1); NEUT % 64.4 % (42.8-82.8); PLATELET COUNT 261 10^3/uL (134-434); RBC 3.67 M/mm3 (3.60-5.2); WHITE BLOOD COUNT 8.3 K/mm3 (4.0-10.0)
[2021-11-15 01:25] LABS: CALCIUM 8.6 mg/dL (8.5-10.1)
[2021-11-15 01:26] LABS: ALBUMIN 3.3 g/dl (3.4-5.0); BLOOD UREA NITROGEN 13.1 mg/dL (7-18)
[2021-11-15 01:29] LABS: CREATININE 0.6 mg/dL (0.55-1.3)
[2021-11-15 01:31] LABS: TOT PROT 7.1 g/dl (6.4-8.2)
[2021-11-15 01:35] LABS: BILIRUBIN,TOTAL 0.2 mg/dL (0.2-1)
[2021-11-15 02:32] VITALS: BP 122/76; PULSE 80
[2021-11-15 02:33] LABS: EPI CELLS 23 /uL (0-25.1); HYALINE CASTS 0 /uL (0-3.1); PH,URINE 5.5 (5.0-8.0); URINE APPEARANCE CLEAR; URINE BACTERIA 31 /uL (0-1359); URINE BILIRUBIN NEGATIVE (NEGATIVE); URINE COLOR ORANGE; URINE GLUCOSE (UA) NEGATIVE (NEGATIVE); URINE KETONE NEGATIVE (NEGATIVE); URINE LEUK ESTERASE TRACE (NEGATIVE); URINE NITRITE NEGATIVE (NEGATIVE); URINE PROTEIN NEGATIVE (NEGATIVE); URINE RBC 5115 /uL (0-23.9); URINE UROBILINOGEN 0.2 mg/dL (0.2-1.0); URINE WBC 55 /uL (0-25.8)
== END 2021-11-15 02:32 | disposition home or self-care (01) ==
LOC: JER 22:23
PROC: 3E0333Z Introduction of Anti-inflammatory into Peripheral Vein, Percutaneous Approach (ICD-10-PCS; principal; 2021-11-14)
DX: J06.9 Acute upper respiratory infection, unspecified (principal); R05.1 Acute cough
CPT/HCPCS: 0241U-QW; 36415; 71045-TC-FY; 80053; 81003; 84484; 85025; 87086; 93005; 93010; 99285-25

== ENCOUNTER 2022-08-27 09:51 | Emergency (ER) | payer OTHER ==
[2022-08-27 10:18] VITALS: BP 108/62; PULSE 66; RESP 16; TEMP 98.2; BMI 28.3
[2022-08-27] MEDS ORDERED: FLUORESCEIN NA 1 EA STRIP ONE (10:28)
== END 2022-08-27 11:04 | disposition home or self-care (01) ==
LOC: JERFT 09:51
DX: H92.03 Otalgia, bilateral (principal); H66.93 Otitis media, unspecified, bilateral
CPT/HCPCS: 99283-25

== ENCOUNTER 2023-03-05 22:18 | Emergency (ER) | payer OTHER ==
[2023-03-05 22:26] VITALS: BP 109/51; PULSE 77; RESP 18; TEMP 98.4; BMI 28.3
[2023-03-05] MEDS ORDERED: IBUPROFEN 400 MG TABLET (FP) PO ONE ×2 (23:48→23:50)
== END 2023-03-05 23:56 | disposition home or self-care (01) ==
LOC: JER 22:18
DX: H92.01 Otalgia, right ear (principal); H66.91 Otitis media, unspecified, right ear; M25.522 Pain in left elbow
CPT/HCPCS: 99283-25

== ENCOUNTER 2023-03-15 10:57 | Emergency (ER) | payer OTHER ==
[2023-03-15 11:27] VITALS: BP 125/44; PULSE 75; RESP 16; TEMP 98.3; BMI 28.3
[2023-03-15 12:15] LABS: THROAT:GRP A STREP NOT DETECTED (NOTDETECTED)
== END 2023-03-15 13:07 | disposition home or self-care (01) ==
LOC: JER 10:57 → JERFT 10:57
DX: J02.9 Acute pharyngitis, unspecified (principal); H92.01 Otalgia, right ear; H66.91 Otitis media, unspecified, right ear; Z20.822 Contact with and (suspected) exposure to COVID-19
CPT/HCPCS: 0241U-QW; 87651; 99283-25

== ENCOUNTER 2023-08-04 18:31 | Emergency (ER) | payer OTHER ==
[2023-08-04 18:36] VITALS: BP 105/50; PULSE 75; RESP 18; TEMP 98; BMI 27.9
[2023-08-04] MEDS ORDERED: KETOROLAC TROMETHAMINE 30 MG/1 ML VIAL ONE (20:53)
[2023-08-04] MEDS: KETOROLAC TROMETHAMINE 30 MG/1 ML VIAL IM ONE (20:54)
== END 2023-08-04 21:03 | disposition home or self-care (01) ==
LOC: JERFT 18:31
PROC: 3E0233Z Introduction of Anti-inflammatory into Muscle, Percutaneous Approach (ICD-10-PCS; principal; 2023-08-04)
DX: M25.561 Pain in right knee (principal)
CPT/HCPCS: 73562-TC-RT-FY; 99284-25

== ENCOUNTER 2023-08-25 09:11 | Emergency (ER) | payer OTHER ==
[2023-08-25 09:16] VITALS: BP 102/68; PULSE 82; RESP 18; TEMP 98; BMI 29.2
[2023-08-25] MEDS ORDERED: IBUPROFEN 600 MG TABLET (FP) PO ONE (10:20)
[2023-08-25] MEDS ORDERED: ACETAMINOPHEN 500 MG TABLET (FP) ONE (10:20)
[2023-08-25] MEDS: ACETAMINOPHEN 500 MG TABLET (FP) PO ONE (10:23)
[2023-08-25] MEDS: IBUPROFEN 600 MG TABLET (FP) PO ONE (10:23)
[2023-08-25 11:03] LABS: THROAT:GRP A STREP DETECTED (NOTDETECTED)
[2023-08-25] MEDS ORDERED: AMOX TR/POT CLAV 500MG/125MG TABLETS (FP) ONE (11:44)
[2023-08-25] MEDS: AMOXICILLIN 500 MG CAPSULE (FP) PO ONE (11:45)
== END 2023-08-25 12:15 | disposition home or self-care (01) ==
LOC: JERFT 09:11
DX: R51.9 Headache, unspecified (principal); R52 Pain, unspecified; J02.0 Streptococcal pharyngitis; Z20.822 Contact with and (suspected) exposure to COVID-19
CPT/HCPCS: 0241U-QW; 87651; 99283-25

== ENCOUNTER 2023-08-25 23:04 | Emergency (ER) | payer OTHER ==
[2023-08-25 23:25] VITALS: BP 134/80; RESP 18; TEMP 99.8; BMI 29.2
[2023-08-25] MEDS ORDERED: IBUPROFEN 600 MG TABLET (FP) PO ONE (23:59)
[2023-08-26] MEDS: IBUPROFEN 600 MG TABLET (FP) PO ONE
[2023-08-26] MEDS: PENICILLIN G BENZATHINE 1,200,000 UNIT/2 ML PFS IM ONE (00:14)
[2023-08-26 00:31] VITALS: PULSE 109
== END 2023-08-26 00:37 | disposition home or self-care (01) ==
LOC: JER 23:04
DX: R52 Pain, unspecified (principal); J02.0 Streptococcal pharyngitis
CPT/HCPCS: 99284-25

== ENCOUNTER 2023-11-20 23:32 | Emergency (ER) | payer OTHER ==
[2023-11-20 23:52] VITALS: BP 113/70; PULSE 86; RESP 18; TEMP 98.6; BMI 28.3
[2023-11-21] MEDS ORDERED: ACETAMINOPHEN 325 MG TABLET (FP) ONE (01:29)
[2023-11-21] MEDS: ACETAMINOPHEN 325 MG TABLET (FP) PO ONE (01:32)
[2023-11-21] MEDS ORDERED: DEXAMETHASONE 4 MG TABLET (FP) ONE (02:04)
[2023-11-21] MEDS: DEXAMETHASONE 4 MG TABLET (FP) PO ONE (02:05)
== END 2023-11-21 02:00 | disposition home or self-care (01) ==
LOC: JER 23:32
DX: R50.9 Fever, unspecified (principal); R05.9 Cough, unspecified; B34.9 Viral infection, unspecified; U07.1 COVID-19
CPT/HCPCS: 0241U-QW; 71046-TC-FY; 87651; 99284-25

== ENCOUNTER 2024-02-29 11:03 | Emergency (ER) | payer OTHER ==
[2024-02-29 11:22] VITALS: BP 127/98; PULSE 72; RESP 20; TEMP 98.2; BMI 24.4
[2024-02-29] MEDS: ACETAMINOPHEN 325 MG TABLET (FP) PO ONE (12:14)
[2024-02-29] MEDS ORDERED: ACETAMINOPHEN 500 MG TABLET (FP) ONE (12:15)
[2024-02-29] MEDS ORDERED: KETOROLAC TROMETHAMINE 30 MG/1 ML VIAL ONE (12:54)
[2024-02-29] MEDS: KETOROLAC TROMETHAMINE 30 MG/1 ML VIAL IM ONE (13:00)
== END 2024-02-29 13:01 | disposition home or self-care (01) ==
LOC: JER 11:03
PROC: 3E0133Z Introduction of Anti-inflammatory into Subcutaneous Tissue, Percutaneous Approach (ICD-10-PCS; principal; 2024-02-29)
DX: M54.9 Dorsalgia, unspecified (principal); M25.512 Pain in left shoulder
CPT/HCPCS: 84703; 96372; 99284-25